=== PATIENT | male | born 1955 | race Caucasian/White ===

== ENCOUNTER 2017-02-04 15:25 | Inpatient (IN) | payer BC ==
[~2017-02-04] VITALS: Ht 190.5 cm; Wt 146.7 kg
[~2017-02-04 15:25] MED LIST: ACET325T9 PO; ALBU0.63 NEB; ALBU8.5H8 IH; AMLO10TA2 PO; AMLO10TA4 PO; AMOX1TAB61 PO; ASPI325T8 PO; ATOR20TA58 PO; Albuterol Sulfate NEB; BUPR150T15 PO; CARV12.5 PO; CARV25TA PO; CEFP200T PO; CLON1PAT3 TD; CRESTOR40 MG PO; DICL75TA PO; DIPH25CA58 PO; DOXY100C2 PO; FENO145T32 PO; FURO-68 PO; FURO40TA4 PO; FURO80TA72 PO; HYDR-2679 PO; HYDR-2868 PO; HYDR1TAB14 PO; HYDR25TA9 PO; INSU100I11 SQ; INSU100I17 SQ; IPRA3AMP NEB; IRBE300T PO; LEVO100T PO; LEVO500T59 PO; MAG DELAY64 MG PO; META-21 PO; META800T PO; METF500T4 PO; MOME17SP NS; MUPI22OI TP; NPH,100V SQ; OLOP5DRO EACHEYE; ONDA4TAB12 PO; POLY10DR3 EACHEYE; POTA10CA PO; POTA10TA31 PO; PRED-220 PO; PRED1TAB PO; PRED5TAB PO; PROP15DR2 OP; RANI300T PO; SULF1TAB24 PO; TOBR5DRO2 OU
--- NOTE | 2017-02-04 15:54 | PHYS DOC ---
Past History Past Medical History: Asthma, Bronchitis, CAD, CHF, COPD, Diabetes, DVT, GERD, High Cholesterol, Hypertension, Hypothyroid, Pneumonia, URI, Other Past Surgical History: Appendectomy, Tonsillectomy, Other Smoking: Cigarettes, Quit Greater Than 1 Year Alcohol Use: Sober Drug Use: None Adult General HPI HPI Patient is a 61 year old M who presents with increased difficult deep breathing. Patient has a history of CHF and COPD and is on baseline 2 L is a cannula and has had difficult deep breathing for the past couple days and at home his O2 saturations were in the mid 80s. In the emergency room the patient is placed on 6 L is a cannula with O2 saturations around 88%. Patient is having visible difficulty breathing and speaking in 2-3 word sentences. Patient states he takes Lasix at home for history of CHF however his legs are more swollen and so is his abdomen. Patient denies any chest pain. Patient denies any fevers. Patient denies any nausea/vomiting/diarrhea. Patient is no other complaints. Review of Systems Review of Systems GEN: Denies fevers, chills, sweats HEENT: Denies blurred vision, sore throat CV: Denies chest pain RESP: Shortness of breath GI: Denies n/v/d NEURO: Denies confusion, dizziness MSK: Denies weakness, joint pain/swelling All other systems were reviewed and found to be within normal limits, except as documented in this note. Allergies Allergies Allergies Coded Allergies Type Severity Reaction Last Updated Verified pioglitazone Allergy Severe swelling 03/27/15 Yes erythromycin base Allergy Intermediate rash and hives 03/27/15 Yes influenza virus vaccine, specific Allergy Intermediate SOB 03/27/15 No morphine Allergy Intermediate 12/16/15 Yes shellfish derived Allergy Intermediate SHRIMP-RASH/HIVES 03/27/15 Yes spinach Allergy Intermediate Hives 12/14/15 Yes torsemide Allergy Intermediate 12/16/15 Yes vancomycin Allergy Intermediate red iveth syndrome with IV/sob 03/27/15 Yes wool Allergy Intermediate Hives 12/14/15 Yes I S O L A T I O N *CONTACT* Allergy Unknown 03/27/15 No Physical Exam Physical Exam GEN.: Moderate distress. Alert and oriented. HEENT: Head is normocephalic, atraumatic NECK: Supple. LUNGS: Poor air movement in all lung abreu. HEART: RRR, S1, S2 present. Peripheral pulses intact ABDOMEN: Soft, nontender, stented with a positive fluid wave. Positive bowel sounds. EXTREMITIES: Without any cyanosis, +2 pitting edema to lower extremity bilaterally NEUROLOGIC: Normal speech, normal tone PSYCHIATRIC: Normal affect, normal mood. SKIN: No ulcerations Current Patient Data Vital Signs Laboratory Tests Test 02/04/17 15:49 02/04/17 16:35 White Blood Count 8.1 x10^3/uL Red Blood Count 4.12 x10^6/uL Hemoglobin 10.9 g/dL Hematocrit 33.5 % Mean Corpuscular Volume 81 fL Mean Corpuscular Hemoglobin 26 pg Mean Corpuscular Hemoglobin Concent 32 g/dL Red Cell Distribution Width 16.7 % Platelet Count 143 x10^3/uL Neutrophils (%) (Auto) 73 % Lymphocytes (%) (Auto) 12 % Monocytes (%) (Auto) 11 % Eosinophils (%) (Auto) 3 % Basophils (%) (Auto) 1 % Neutrophils # (Auto) 5.9 x10^3uL Lymphocytes # (Auto) 1.0 x10^3/uL Monocytes # (Auto) 0.9 x10^3/uL Eosinophils # (Auto) 0.2 x10^3/uL Basophils # (Auto) 0.1 x10^3/uL Sodium Level 139 mmol/L Potassium Level 3.9 mmol/L Chloride Level 100 mmol/L Carbon Dioxide Level 36 mmol/L Anion Gap 3 Blood Urea Nitrogen 13 mg/dL Creatinine 0.8 mg/dL Estimated GFR (Cockcroft-Gault) 97.6 BUN/Creatinine Ratio 16 Glucose Level 143 mg/dL Lactic Acid Level 1.3 mmol/L Calcium Level 8.7 mg/dL Total Bilirubin 0.4 mg/dL Aspartate Amino Transf (AST/SGOT) 24 U/L Alanine Aminotransferase (ALT/SGPT) 33 U/L Alkaline Phosphatase 75 U/L Troponin I Quantitative < 0.017 ng/mL BL-Cuc-L-Type Natriuretic Peptide 208 pg/mL Total Protein 6.8 g/dL Albumin 3.3 g/dL Albumin/Globulin Ratio 0.9 Lipase 58 U/L Blood Gas pH 7.37 Blood Gas PCO2 59 mmHg Blood Gas PO2 64 mmHg Blood Gas HCO3 35 mmol/L Arterial Bld O2 Saturation (Calc) 92 % FiO2 36 % Current Medications Medications (Trade) Dose Ordered Sig/Leeanna Route PRN Reason Start Time Stop Time Status Last Admin Dose Admin Albuterol/ Ipratropium (Duoneb) 3 ml STK-MED ONCE .ROUTE 02/04/17 15:57 02/04/17 15:58 DC Albuterol/ Ipratropium (Duoneb) 3 ml 1X ONCE NEB 02/04/17 16:00 02/04/17 16:11 DC 02/04/17 16:00 EKG EKG 1608: EKG shows sinus bradycardia rate of 59 no STEMI[] Radiology/Procedures Radiology/Procedures Chest x-ray shows developing left lower lobe pneumonia with pulmonary edema and congestion and bilateral small pleural effusions[] Course & Med Decision Making Course & Med Decision Making Pertinent Labs and Imaging studies reviewed. (See chart for details) ED course: Patient was seen and examined emergency room CBC, CMP, troponin, EKG, blood cultures, lactic acid, chest x-ray were ordered BiPAP was attempted to place on the patient however he felt claustrophobic and did not like her mass therefore we'll obtain his own from home, ABG was ordered After breathing treatment patient's work or breathing has gotten better 1640: Discussed CC/HP/PMH with Dr. Larsen and recommends admit to the ICU MDM: After reviewing the chart, CC/HPI/PMH, physical exam, [lab results], [ radiological results], I believe the patient has acute respiratory failure secondary to left lower lobe pneumonia with a COPD exacerbation and pulmonary congestion secondary to history of CHF. Attempted to place the patient on BiPAP however patient cannot tolerate hour mask and like to obtain his own from home. We'll admit the patient to ICU for further evaluation and management. Critical care time was 35 minutes exclusive of procedures.[] Dragon Disclaimer Dragon Disclaimer This electronic medical record was generated, in whole or in part, using a voice recognition dictation system. Departure Departure: Impression: Primary Impression: Left lower lobe pneumonia Additional Impressions: COPD exacerbation CHF (congestive heart failure) Disposition: ADMITTED INPATIENT Admitting Physician: Roseann Larsen Condition: GUARDED Referrals: ROSEANN LARSEN MD (PCP) Problem Qualifiers LILLI TREVIÑO DO Feb 04, 2017 15:54
[2017-02-04] MEDS ORDERED: IPRATRPIUM/ALBUTEROL 0.5/2.5MG 3 ML NEBU. ONE (15:57)
[2017-02-04] MEDS ORDERED: IPRATRPIUM/ALBUTEROL 0.5/2.5MG 3 ML NEBU. NEB ONE (16:00)
[2017-02-04 16:06] LABS: BASO # 0.1 x10^3/uL (0.0-0.2); BASO % 1 % (0-3); EOS # 0.2 x10^3/uL (0.0-0.7); EOS % 3 % (0-3); HEMATOCRIT 33.5 % (39.0-53.0); HEMOGLOBIN 10.9 g/dL (13.0-17.5); LYMPH % 12 % (24-48); MEAN CORPUSCULAR HEMOGLOBIN 26 pg (25-35); MEAN CORPUSCULAR HGB CONC 32 g/dL (31-37); MEAN CORPUSCULAR VOLUME 81 fL (79-100); MONO # 0.9 x10^3/uL (0.0-1.1); MONO % 11 % (0-9); NEUT # 5.9 x10^3uL (1.8-7.7); NEUT % 73 % (31-73); PLATELET COUNT 143 x10^3/uL (140-400); RED BLOOD COUNT 4.12 x10^6/uL (4.30-5.70); RED CELL DISTRIBUTION WIDTH 16.7 % (11.5-14.5); WHITE BLOOD COUNT 8.1 x10^3/uL (4.0-11.0)
[2017-02-04 16:22] LABS: ALBUMIN 3.3 g/dL (3.4-5.0); ALBUMIN/GLOBULIN RATIO 0.9 (1.0-1.7); CALCIUM 8.7 mg/dL (8.5-10.1); CREATININE 0.8 mg/dL (0.7-1.3); GFR 97.6; POTASSIUM 3.9 mmol/L (3.5-5.1); TOTAL BILIRUBIN 0.4 mg/dL (0.2-1.0); TOTAL PROTEIN 6.8 g/dL (6.4-8.2)
[2017-02-04 16:40] LABS: BGAS PH 7.37 (7.35-7.46)
[2017-02-04] MEDS ORDERED: PIPERACILLIN/TAZOBACTAM 3.375 GM in IV NORMAL SALINE 50ML 50 ML IV ONE (16:45)
--- NOTE | 2017-02-04 16:46 | RAD ---
Portable chest, 02/04/2017: History: Shortness of breath Comparison is made to a study from 04/05/2016. The patient is moderately rotated to the left. Moderate right parahilar and left basilar infiltrates have developed with obscuration of the left cardiac margin. The heart is at the upper limits of normal in size. Widening of the mediastinum is largely due to abundant mediastinal fat. A small amount of pleural fluid contributing to the left basilar opacity cannot be excluded. IMPRESSION: Moderate bilateral pulmonary infiltrates have developed suggesting pulmonary edema and/or pneumonia.
--- NOTE | 2017-02-04 16:47 | EKG ---
[address] [address] Test Date: 2017-02-04 Test Time: 16:02:58 Pat Name: [facility] Department: Room: Gender: M [employer]: [id number] : [id number] Requested By: LILLI TREVIÑO Order Number: [id number] Reading MD: Zana Hanson MD Measurements Intervals [place] Rate: 59 P: 10 CT: 210 QRS: -87 QRSD: 148 T: 82 QT: 486 QTc: 486 Interpretive Statements SINUS RHYTHM LAFB IVCD Electronically Signed On 02-05-2017 15:14:35 RELAY ASSOCIATE by Zana Hanson MD
[2017-02-04] MEDS ORDERED: PIPERACILLIN/TAZOBACTAM 3.375 GM VIAL IV ONE (16:54)
[2017-02-04] MEDS ORDERED: IV NORMAL SALINE 50ML 50 ML ONE (16:54)
[2017-02-04] MEDS ORDERED: ONDANSETRON PF 4 MG/2 ML VIAL. IV PRN (17:00)
[2017-02-04] MEDS ORDERED: ACETAMINOPHEN 325 MG TABLET PO PRN ×2 (17:00→18:15)
[2017-02-04 18:00] VITALS: BP 161/75
[2017-02-04] MEDS ORDERED: METAXALONE 800 MG TABLET PO PRN (18:15)
[2017-02-04] MEDS ORDERED: ONDANSETRON ODT 4 MG TAB.RAPDIS PO PRN (18:15)
[2017-02-04] MEDS ORDERED: ALBUTEROL SULFATE 8GM INHALER. IH PRN (18:15)
[2017-02-04] MEDS ORDERED: HYDROcodone/APAP 7.5/325MG 1 TAB TABLET PO PRN (18:15)
[2017-02-04] MEDS ORDERED: POLYVINYL ALCOHOL 1.4% OPHTH SOLUTION 15ML BOTTLE. OU PRN (19:00)
[2017-02-04] MEDS ORDERED: SODI104S NS (19:30)
[2017-02-04 19:33] VITALS: BP 163/66
[2017-02-04] MEDS ORDERED: IPRATRPIUM/ALBUTEROL 0.5/2.5MG 3 ML NEBU. NEB SCH (20:00)
[2017-02-04] MEDS ORDERED: ALBUTEROL SULFATE 2.5 MG/3 ML NEBU. NEB PRN (20:30)
[2017-02-04 20:48] VITALS: BP 174/66
[2017-02-04] MEDS ORDERED: NPH HUMAN INSULIN ISOPHANE SQ SCH (21:00)
[2017-02-04] MEDS: IPRATRPIUM/ALBUTEROL 0.5/2.5MG 3 ML NEBU. NEB SCH (21:11)
[2017-02-04] MEDS: TOBRAMYCIN 0.3% OPHTH SOLUTION 5ML BOTTLE. OU SCH (21:39)
[2017-02-04] MEDS: DEXAMETHASONE 0.1% OPHTH SOLUTION 5ML BOTTLE. OU SCH (21:39)
[2017-02-04] MEDS: POLYMYXIN/TRIMETHOPRIM OPHTH SOLUTION 10ML BOTTLE. OU SCH (21:39)
[2017-02-04] MEDS: hydrALAZINE 25 MG TABLET PO SCH (21:40)
[2017-02-04] MEDS: FAMOTIDINE 20 MG TABLET PO SCH (21:40)
[2017-02-04] MEDS: ATORVASTATIN CALCIUM 20 MG TABLET PO SCH (21:40)
[2017-02-04] MEDS: CARVEDILOL 12.5 MG TABLET PO SCH (21:40)
[2017-02-04] MEDS: ENOXAPARIN 40 MG/0.4 ML DISP.SYRIN. SQ SCH (21:41)
[2017-02-04 23:15] VITALS: BP 177/59
[2017-02-05] VITALS (11 sets, daily range): BP systolic 127–181; BP diastolic 54–78
[2017-02-05] MEDS: AZTREONAM 1 GM in IV NORMAL SALINE 50ML 50 ML IV SCH ×4 (00:13→18:14)
[2017-02-05] MEDS: IPRATRPIUM/ALBUTEROL 0.5/2.5MG 3 ML NEBU. NEB SCH ×3 (05:53→16:54)
[2017-02-05] MEDS: LEVOTHYROXINE 100 MCG TABLET PO SCH (06:08)
[2017-02-05 06:18] LABS: BASO # 0.1 x10^3/uL (0.0-0.2); BASO % 1 % (0-3); EOS # 0.2 x10^3/uL (0.0-0.7); EOS % 2 % (0-3); HEMOGLOBIN 10.3 g/dL (13.0-17.5); LYMPH # 1.1 x10^3/uL (1.0-4.8); LYMPH % 13 % (24-48); MEAN CORPUSCULAR HEMOGLOBIN 26 pg (25-35); MEAN CORPUSCULAR HGB CONC 32 g/dL (31-37); MEAN CORPUSCULAR VOLUME 81 fL (79-100); MONO # 0.9 x10^3/uL (0.0-1.1); MONO % 10 % (0-9); NEUT # 6.4 x10^3uL (1.8-7.7); NEUT % 75 % (31-73); PLATELET COUNT 136 x10^3/uL (140-400); RED BLOOD COUNT 3.93 x10^6/uL (4.30-5.70); RED CELL DISTRIBUTION WIDTH 16.6 % (11.5-14.5); WHITE BLOOD COUNT 8.5 x10^3/uL (4.0-11.0)
[2017-02-05 06:21] LABS: CALCIUM 8.7 mg/dL (8.5-10.1); CREATININE 0.8 mg/dL (0.7-1.3); GFR 97.6; POTASSIUM 3.9 mmol/L (3.5-5.1)
[2017-02-05] MEDS: NPH HUMAN INSULIN ISOPHANE SQ SCH (08:00)
[2017-02-05] MEDS: POTASSIUM CHLORIDE 10 MEQ TABLET.ER. PO SCH (08:00)
[2017-02-05] MEDS: FLUTICASONE 50MCG/NASAL SPRAY 16GM BOTTLE. NS SCH (08:16)
[2017-02-05] MEDS: POLYMYXIN/TRIMETHOPRIM OPHTH SOLUTION 10ML BOTTLE. OU SCH ×3 (08:17→21:23)
[2017-02-05] MEDS: MAGNESIUM CHLORIDE ER 64 MG TABLET.ER PO SCH (08:17)
[2017-02-05] MEDS: TOBRAMYCIN 0.3% OPHTH SOLUTION 5ML BOTTLE. OU SCH ×2 (08:17→12:58)
[2017-02-05] MEDS: DEXAMETHASONE 0.1% OPHTH SOLUTION 5ML BOTTLE. OU SCH ×5 (08:17→21:22)
[2017-02-05] MEDS: ENOXAPARIN 40 MG/0.4 ML DISP.SYRIN. SQ SCH ×2 (08:18→21:24)
[2017-02-05] MEDS: DOXYCYCLINE HYCLATE 100 MG TABLET PO SCH ×2 (08:18→21:24)
[2017-02-05] MEDS: amLODIPine BESYLATE 10 MG TABLET PO SCH (08:18)
[2017-02-05] MEDS: ASPIRIN 325 MG TABLET PO SCH (08:19)
[2017-02-05] MEDS: metFORMIN 500 MG TABLET PO SCH ×2 (08:19→17:00)
[2017-02-05] MEDS: FENOFIBRATE NANOCRYSTALLIZED 145 MG TABLET PO SCH (08:19)
[2017-02-05] MEDS: LOSARTAN 50 MG TABLET. PO SCH (08:19)
[2017-02-05] MEDS: hydrALAZINE 25 MG TABLET PO SCH ×4 (08:19→21:25)
[2017-02-05] MEDS: INSULIN ASPART 300 UNITS/3 ML INSULN.PEN SQ SCH ×3 (08:26→16:30)
[2017-02-05] MEDS ORDERED: FUROSEMIDE 40 MG TABLET PO SCH (09:00)
[2017-02-05] MEDS ORDERED: FUROSEMIDE 40 MG/4 ML VIAL IVP SCH (09:00)
[2017-02-05] MEDS ORDERED: hydroCHLOROthiazide 25 MG TABLET PO SCH (09:00)
[2017-02-05] MEDS ORDERED: buPROPion XL 150 MG TAB.ER.24H PO SCH (09:00)
[2017-02-05] MEDS: CARVEDILOL 12.5 MG TABLET PO SCH ×3 (09:31→21:25)
--- NOTE | 2017-02-05 10:15 | PDOC2 ---
ARMIDA LEMON DOG WARDEN 02/05/17 1015: CONSULT Date of Admission DATE: 02/05/17 TIME: 10:07 Problem List Problems Medical Problems: (1) CHF (congestive heart failure) Status: Acute (2) COPD exacerbation Status: Acute (3) Left lower lobe pneumonia Status: Acute History of Present Illness PHYSICIAN REQUESTING CONSULTATION: Dr. Jacobo Larsen. REASON FOR CONSULTATION: Shortness of breath, CHF exacerbation. HISTORY OF PRESENT ILLNESS: The patient is a very pleasant 61-year-old gentleman, Who presented to the emergency room with chief complaint of dyspnea. The patient does have a history of coronary artery disease s/p percutaneous revascularization, essential hypertension,hyperlipidemia, diabetes mellitus type 2, COPD, and heart failure with preserved ejection fraction. The patient was admitted yesterday after presenting with symptoms of progressively worsening shortness of breath. He reports that his symptoms have been getting progressively worse over the past several days. He denies any associated chest pains. He has been having cough with yellow sputum , low-grade fever, and feeling overall unwell. He walked down stairs in his home and his O2 saturation monitor showed that his oxygen level had dropped into the low 80s so he came into the emergency room. He has occasional palpitations which are his normal. They last for a few seconds and feel like a fluttering sensation that have not increased the last few days. On admission to the emergency room he was diagnosed with pneumonia and started on antibiotics. His chest x-ray shows small pleural effusion with minimally elevated BNP. His Lasix has been changed to IV and we are getting his blood pressure medication restarted. His blood pressure this morning is been quite elevated at 200/100 but he reports that when he is on all of his medications it is under well controlled. This morning he is not feeling better yet. He continues to feel achy and short of breath. REVIEW OF SYSTEMS: A 14-point organ system, review of system is negative other than as described above. FAMILY HISTORY: The patient reports a family history of lung disease and cancer, but denies any significant heart history in his family. SOCIAL HISTORY: The patient is a former smoker. He reports that he quit smoking earlier this year. He does drink alcohol occasionally. He denies any illicit drug use. ALLERGIES: Include erythromycin, influenza virus vaccine, morphine, pioglitazone, shellfish, spinach, torsemide, vancomycin and wool. CURRENT MEDICATIONS: A list of his current medications is listed in the electronic medical record. These were reviewed. PHYSICAL EXAMINATION: HEENT: Head is normocephalic. Pupils are equal, round and reactive to light and accommodation. Sclerae are anicteric. Conjunctivae are normal. Nares are clear. NECK: Supple, without any adenopathy or thyromegaly. There is no JVD, no carotid bruits. LUNGS: Demonstrate decreased air movements bilaterally. + wheezes or crackles. HEART: Regular rate and rhythm, normal S1 and S2. No murmurs, rubs, or gallops are appreciated. ABDOMEN: Soft, nontender to palpation. Normal bowel sounds. EXTREMITIES: With trace pitting edema bilaterally. There does appear to be normal peripheral pulses. NEUROLOGIC: Grossly intact. No focal deficits. Cardiac testing ECHOCARDIOGRAM IMPRESSION (11/29/2016): Technically difficult study. The left ventricular systolic function is normal. The Ejection Fraction is 55-60%. There is normal LV segmental wall motion. The left atrium is moderately dilated. Doppler and Color Flow revealed trace mitral regurgitation. There is no evidence of significant pericardial effusion. NUCLEAR STRESS TEST IMPRESSION (11/30/2016): 1. No evidence of EKG changes with stress testing. 2. Normal perfusion at stress. 3. Low risk study. 4. EF > 60%. CAROTID ARTERY DUPLEX STUDY IMPRESSION ( 09/14/16):. Doppler analysis revealed 50-69% stenosis in RT ICA. Doppler analysis revealed < 50% stenosis in LT ICA.. Normal antegrade flow was noted in both vertebral arteries. VENOUS LOWER EXTREMITY DUPLEX (04/02/2016): No Doppler evidence of lower extremity venous thrombosis, with limited evaluation of the calf veins due to soft tissue edema. ECHOCARDIOGRAM IMPRESSION (12/15/2015): Technically difficult study due to patient body habitus. There is mild concentric left ventricular hypertrophy. Left ventricle systolic function is normal. The Ejection Fraction is 55-60%. No significant valvular disease noted. There is no evidence of significant pericardial effusion. CT ANGIOGRAM CHEST (12/14/2015): 1. No pulmonary emboli are identified. 2. There are trace dependent pleural effusions bilaterally, mild ground-glass density of the lung parenchyma which could be due to edema, constellation of findings potentially which could be seen with left ventricular failure in the appropriate clinical setting. There is mild pleural thickening along the right lung base slightly greater than previous exam, also adjacent minimal fluid. 3. There is coronary calcification. 4. There is similar mediastinal lymphadenopathy. CT ANGIOGRAM CHEST (12/14/2015): 1. No pulmonary emboli are identified. 2. There are trace dependent pleural effusions bilaterally, mild ground-glass density of the lung parenchyma which could be due to edema, constellation of findings potentially which could be seen with left ventricular failure in the appropriate clinical setting. There is mild pleural thickening along the right lung base slightly greater than previous exam, also adjacent minimal fluid. 3. There is coronary calcification. 4. There is similar mediastinal lymphadenopathy. CT ANGIOGRAM CHEST ( 02/15/2015); 1. Stable CT appearance of the mediastinal lymphadenopathy. 2. Small right pleural effusion which has decreased in size slightly since the previous examination. No acute abnormality is seen. REGADENOSON STRESS TEST IMPRESSION (12/16/2014): This study is abnormal due to elevated lung uptake of radioisotope, which is an adverse prognostic indicator. There is no evidence of significant myocardial ischemia. Left ventricular systolic function is normal. There are no high risk prognostic indicators present. The ECG portion of the study is negative for ischemia. Comparison is made with a prior [facility] study completed 01/27/2014. Ejection fraction was 59%. The previous study also had elevated uptake of radioisotope. Otherwise, there are no significant changes. CARDIAC CATHETERIZATION IMPRESSION (12/13/2011): Successful CSI bur 2.0 arthrectomy of the right SFA lesion. Status post percutaneous angioplasty of the right SFA lesion with a 5 into 60 cm Wolfe SV balloon. Status post left common iliac stenting with a 9 into 25 mm Omnilink stent. Status post dilation with a 9 into 20 mm Wolfe balloon. Status post right common iliac stenting with an 8 into 59 Omnilink stent. Status post dilatation witha 8 in 30 mm Wolfe balloon. VASCULAR: 12/05/2011 right superficial femoral artery atherectomy and bilateral common iliac stenting in November 2011 IMPRESSION AND PLAN: 1. Dyspnea on exertion, likely multifactorial. 2. Acute congestive heart failure, likely diastolic. plan to resume home medications get blood pressure under control. He just had a recent echocardiogram that showed normal LV function. Will plan to change his Lasix to IV and monitor lab and x-ray 3. Coronary artery disease, status post multivessel percutaneous coronary - coronary arteriosclerosis in [place] artery He had drug-eluting stent 2.5 x38 obtuse marginal in 2.5 x12 into the diagonal in [address] Merida at . He Had a negative stress myocardial perfusion scan in November 2016 at [facility] which was negative for ischemia. Asymptomatic continue current therapy 4. Essential hypertension. -elevated at this time plan to resume home medications and monitor. 5. Hyperlipidemia. -LDL goal of less than 70 check fasting lipids continue statin therapy 6. Pneumonia/Chronic obstructive pulmonary disease exacerbation. -treatment per primary care provider 7. Diabetes mellitus type 2. -treatment per primary care provider Past Medical History essential hypertension The patients blood pressure is adequately controlled on the current therapy. We will continue the current medications. The patient does not have significant orthostatic symptoms. he is off the hydrochlorothiazide which seems reasonable. HE is able to take the hydralazine 4 times a day heart failure with normal ejection fraction Ejection fraction was normal in November 2015. Previously he was on a higher dose of Lasix but he appears to be doing well on a smaller dose of Lasix at 40 mg . Will continue the current dosage. He has mild edema. Amlodipine may also be contributing. mixed hyperlipidemia His lipid profile in March showed triglycerides of 369 with a total cholesterol 165 LDL 63 and HDL 29. he is on rosuvastatin 40 and fenofibrate. I have counseled him about diet. He cannot exercise. His lipids on 11/28/2016 showed total cholesterol of 111 triglycerides 203 LDL 39 and HDL 31 obesity he has lost 5 lb. The have been working towards cutting back his carbohydrates although he cheats occasionally. He eats more when his sugars dropped. I have counseled him to cut back his insulin if necessary. I have encouraged him to continue to work on the carbohydrates. HE loves vegetables which has helped chronic obstructive lung disease he is on chronic ambulatory oxygen since January. Prior to that he had multiple steroid trials. He sees Dr Escobar peripheral vascular disease he had a right superficial femoral artery atherectomy and bilateral common iliac stenting in November 2011 tobacco dependence in remission he quit smoking late 2014 pain in lower limb (Bilateral) His lower extremity venous duplex was negative for DVT carotid bruit his bilateral carotid bruits. His carotid ultrasound showed [id number] disease bilaterally Type 2 diabetes mellitus without complication he is on insulin. I have asked him to cut back dosage if he has hypoglycemia obstructive sleep apnea syndrome he is on trilogy. I have advised him to use the trilogy whenever he sleeps because he sleeps in short bursts throughout the Current Medications Current Medications Albuterol/ Ipratropium (Duoneb) 3 ml STK-MED ONCE .ROUTE ; Start 02/04/17 at 15 :57; Stop 02/04/17 at 15:58; Status DC Albuterol/ Ipratropium (Duoneb) 3 ml 1X ONCE NEB Last administered on t 16:00; Start 02/04/17 at 16:00; Stop 02/04/17 at 16:11; Status DC Piperacillin Sod/ Tazobactam Sod 3.375 gm/Sodium Chloride 50 ml @ 100 mls/hr 1X ONCE IV Last administered on 02/04/17t 17:14; Start 02/04/17 at 16:45; Stop 02/04/17 at 17:14; Status DC Levofloxacin/ Dextrose 150 ml @ 150 mls/hr 1X ONCE IV ; Start 02/04/17 at 16: 45; Stop 02/04/17 at 17:44; Status DC Ondansetron HCl (Zofran) 4 mg PRN Q4HRS PRN IV NAUSEA/VOMITING; Start at 17:00; Stop 02/05/17 at 16:59 Acetaminophen (Tylenol) 650 mg PRN Q4HRS PRN PO FEVER; Start 02/04/17 at 17:00 ; Stop 02/04/17 at 20:24; Status DC Albuterol/ Ipratropium (Duoneb) 3 ml RTQID NEB Last administered on 02/05/17t 05:53; Start 02/04/17 at 20:00; Stop 02/05/17 at 19:59 Fentanyl Citrate (Fentanyl 2ml Vial) 75 mcg PRN Q4HRS PRN IV pain ; Start at 17:00 Sodium Chloride 50 ml @ As Directed STK-MED ONCE .ROUTE ; Start 02/04/17 at 16: 54; Stop 02/04/17 at 16:55; Status DC Piperacillin Sod/ Tazobactam Sod (Zosyn) 3.375 gm STK-MED ONCE IV ; Start 02/04 at 16:54; Stop 02/04/17 at 16:55; Status DC Acetaminophen (Tylenol) 325 mg PRN Q6HRS PRN PO PAIN; Start 02/04/17 at 18:15 Albuterol Sulfate (Ventolin Hfa) 2 puff PRN QID PRN IH SOA; Start 02/04/17 at 18:15; Stop 02/04/17 at 20:24; Status DC Amlodipine Besylate (Norvasc) 10 mg DAILY PO Last administered on 02/05/17 08 :18; Start 02/05/17 at 09:00 Aspirin (Venita Aspirin) 325 mg DAILY PO Last administered on 02/05/17 08:19; Start 02/05/17 at 09:00 Bupropion HCl (Wellbutrin Xl) 150 mg DAILY PO ; Start 02/05/17 at 09:00; Stop 02/05/17 at 09:00; Status DC Clonidine HCl (Catapres Tts-3) 1 patch WEEKLY TD ; Start 02/11/17 at 09:00; Stop 02/11/17 at 09:00; Status DC Fenofibrate (Tricor) 145 mg DAILY PO Last administered on 02/05/17 08:19; Start 02/05/17 at 09:00 Furosemide (Lasix) 80 mg DAILY PO ; Start 02/05/17 at 09:00; Stop 02/05/17 at 09:00; Status DC Hydralazine HCl (Apresoline) 25 mg [id number] PO Last administered on 02/05/17 08:19; Start 02/04/17 at 21:00 Hydrochlorothiazide (Hydrodiuril) 25 mg DAILY PO ; Start 02/05/17 at 09:00; Stop 02/05/17 at 09:22; Status DC Acetaminophen/ Hydrocodone Bitart (Lortab 7.5/325) 1 tab PRN Q6HRS PRN PO PAIN Last administered on 02/04/17 23:30; Start 02/04/17 at 18:15 Albuterol/ Ipratropium (Duoneb) 3 ml RTQID NEB ; Start 02/04/17 at 20:00; Stop 02/04/17 at 23:36; Status DC Levothyroxine Sodium (Synthroid) 100 mcg DAILY07 PO Last administered on 06:08; Start 02/05/17 at 07:00 Metaxalone (Skelaxin) 800 mg PRN TID PRN PO PAIN; Start 02/04/17 at 18:15 Metformin HCl (Glucophage) 500 mg BIDWMEALS PO Last administered on 02/05/17 08:19; Start 02/05/17 at 08:00 Ondansetron HCl (Zofran Odt) 4 mg PRN Q8HRS PRN PO NAUSEA; Start 02/04/17 at 18:15 Polymyxin/ Trimethoprim Sulfate (Polytrim) 1 drop TID OU Last administered on 02/05/17 08:17; Start 02/04/17 at 21:00 Carvedilol (Coreg) 25 mg TID PO Last administered on 02/05/17 09:31; Start 02/04/17 at 21:00 Insulin Aspart (NovoLOG) 38 units TIDBFRMEAL SQ Last administered on 08:26; Start 02/05/17 at 07:30 Losartan Potassium (Cozaar) 100 mg DAILY PO Last administered on 02/05/17 08: 19; Start 02/05/17 at 09:00 Magnesium Chloride (Mag Delay) 64 mg DAILY PO Last administered on 02/05/17 08:17; Start 02/05/17 at 09:00 Fluticasone Propionate (Flonase) 2 spray DAILY NS Last administered on 08:16; Start 02/05/17 at 09:00 Non-Formulary Medication 28 unit DAILYWBKFT SQ Last administered on 02/05/17 08:00; Start 02/05/17 at 08:00; Status UNV Non-Formulary Medication 88 unit HS SQ ; Start 02/04/17 at 21:00; Stop at 21:00; Status DC Potassium Chloride (Klor-Con) 10 meq DAILYWBKFT PO Last administered on 08:00; Start 02/05/17 at 08:00 Artificial Tears (Artificial Tears) 1 drop PRN Q4HRS PRN OU DRY EYE Last administered on 02/05/17 08:17; Start 02/04/17 at 19:00 Famotidine (Pepcid) 20 mg QHS PO Last administered on 02/04/17 21:40; Start 02/04/17 at 21:00 Atorvastatin Calcium (Lipitor) 80 mg QHS PO Last administered on 02/04/17 21: 40; Start 02/04/17 at 21:00 Tobramycin Sulfate (Tobrex Ophth Soln) 1 drop QID OU Last administered on 02/05 08:17; Start 02/04/17 at 21:00 Enoxaparin Sodium (Lovenox) 40 mg Q12H SQ Last administered on 02/05/17 08:18 ; Start 02/04/17 at 20:00 Furosemide (Lasix) 40 mg DAILY IVP Last administered on 02/05/17 08:18; Start 02/05/17 at 09:00 Aztreonam 1 gm/ Sodium Chloride 50 ml @ 100 mls/hr Q6HRS IV Last administered on 02/05/17 05:35; Start 02/05/17 at 00:00 Doxycycline Hyclate (Vibra-Tab) 100 mg BID PO Last administered on 02/05/17 08:18; Start 02/05/17 at 09:00 Levofloxacin/ Dextrose 150 ml @ 150 mls/hr 1X ONCE IV Last administered on 20:29; Start 02/04/17 at 18:30; Stop 02/04/17 at 19:29; Status DC Dexamethasone (Maxidex) 1 drop QID OU Last administered on 02/05/17 08:17; Start 02/04/17 at 21:00 Albuterol Sulfate (Ventolin) 2.5 mg PRN Q6HRS PRN NEB SHORTNESS OF BREATH; Start 02/04/17 at 20:30; Stop 02/04/17 at 20:30; Status DC Albuterol Sulfate (Ventolin) 2.5 mg PRN Q6HRS PRN NEB SHORTNESS OF BREATH; Start 02/04/17 at 20:30 Active Scripts Active Potassium Chloride 10 Meq Capsule.er 1 Cap PO DAILY take two capsules daily for 7 days, then decrease to 1 capsule daily Furosemide 40 Mg Tablet 80 Mg PO DAILY 80mg for 1 week, then decrease to 40mg daily Mag Delay (Magnesium Chloride) 64 Mg Tablet.er 64 Mg PO DAILY 1 tablet daily Duoneb 0.5-3(2.5) Mg/3 Ml (Albuterol/Ipratropium) 3 Ml Ampul.neb 3 Ml NEB RTQID Synthroid (Levothyroxine Sodium) 100 Mcg Tablet 100 Mcg PO DAILY07 for low thyroid last dose: 11/04 @ 6:02 AM next dose: 11/05 AM Reported Maria Antonia (Sodium Chloride) 104 Ml [place] 104 Ml NS Q1HR PRN Amlodipine Besylate 10 Mg Tablet 1 Tab PO DAILY LAST DOSE GIVEN: DATE: TODAY TIME: AM NEXT DOSE DUE: DATE: TOMORROW TIME: AM Systane Liquid Gel Eye Drops (Propylene Glycol/Peg 400) 15 Ml Drp.lq.gel 15 Ml OP Q4HRS LAST DOSE GIVEN: DATE: TODAY TIME: AFTERNOON NEXT DOSE DUE: DATE: TODAY TIME: EVENING Nasonex (Mometasone Furoate) 17 Gm [place].pump 2 Spr NS PRN BID PRN LAST DOSE GIVEN: DATE: TODAY TIME: AM NEXT DOSE DUE: DATE: TODAY TIME: PM Ondansetron Odt (Ondansetron) 4 Mg Tab.rapdis 1 Tab PO Q8HRS PRN LAST DOSE GIVEN: DATE: TIME: NEXT DOSE DUE: DATE: TODAY TIME: IF AND WHEN NEEDED Polymyxin B-Tmp Eye Drops (Polymyxin B Sulf/Trimethoprim) 10 Ml Drops 1 Drop EACHEYE TID LAST DOSE GIVEN: DATE: TODAY TIME: AFTERNOON NEXT DOSE DUE: DATE: TODAY TIME: AT BEDTIME Metaxalone 800 Mg Tablet 800 Mg PO TID PRN LAST DOSE GIVEN: DATE: TIME: NEXT DOSE DUE: DATE: TODAY TIME: IF AND WHEN NEEDED Humulin N (Nph, Human Insulin Isophane) 100 Unit/1 Ml Vial 28 Unit SQ DAILYWBKFT LAST DOSE GIVEN: DATE: TODAY TIME: WITH BREAKFAST NEXT DOSE DUE: DATE: TOMORROW TIME: WITH BREAKFAST Tylenol (Acetaminophen) 325 Mg Tablet 1 Tab PO Q6HRS PRN LAST DOSE GIVEN: DATE: TIME: NEXT DOSE DUE: DATE: TODAY TIME: IF AND WHEN NEEDED Coreg (Carvedilol) 25 Mg Tablet 1 Tab PO TID LAST DOSE GIVEN: DATE: TODAY TIME: AFTERNOON NEXT DOSE DUE: DATE: TODAY TIME: PM Lortab 7.5-325 mg Tablet (Hydrocodone/Acetaminophen) 1 Each Tablet 1-2 Tab PO Q6HRS PRN LAST DOSE GIVEN: DATE: TODAY TIME: 12 NOON NEXT DOSE DUE: DATE: TODAY TIME: AFTER 6 PM IF NEEDED Humalog (Insulin Lispro) 100 Unit/1 Ml Insuln.pen 32-36 Unit SQ TIDAC LAST DOSE GIVEN: DATE: TODAY TIME: WITH DINNER NEXT DOSE DUE: DATE: TOMORROW TIME: WITH BREAKFAST Tricor (Fenofibrate Nanocrystallized) 145 Mg Tablet 1 Tab PO DAILY LAST DOSE GIVEN: DATE: TIME: AM NEXT DOSE DUE: DATE: ORR TIME: AM Hydralazine Hcl 25 Mg Tablet 25 Mg PO [id number] LAST DOSE GIVEN: DATE: TODAY TIME: 5 PM NEXT DOSE DUE: DATE: TODAY TIME: AT BEDTIME Metformin Hcl 500 Mg Tablet 1,000 Mg PO BIDWMEALS LAST DOSE GIVEN: DATE: TIME: WITH DINNER NEXT DOSE DUE: DATE: TOMORROW TIME: WITH BREAKFAST Benadryl (Diphenhydramine Hcl) 25 Mg Capsule 25-50 Mg PO PRN Q6HRS PRN LAST DOSE GIVEN: DATE: TIME: NEXT DOSE DUE: DATE: TIME: AFTER IF NEEDED Crestor (Rosuvastatin Calcium) 40 Mg Tablet 40 Mg PO DAILY LAST DOSE GIVEN: DATE: TIME: AM NEXT DOSE DUE: DATE: ORR TIME: AM Aspirin 325 Mg Tablet 325 Mg PO DAILY LAST DOSE GIVEN: DATE: TIME: AM NEXT DOSE DUE: DATE: TOMORROW TIME: AM Ranitidine Hcl 300 Mg Tablet 300 Mg PO DAILY LAST DOSE GIVEN: DATE: TIME: AM NEXT DOSE DUE: DATE: ORR TIME: AM Avapro (Irbesartan) 300 Mg Tablet 300 Mg PO DAILY LAST DOSE GIVEN: DATE: TIME: AM NEXT DOSE DUE: DATE: TOMORROW TIME: AM Allergies: Coded Allergies: pioglitazone (Verified Allergy, Severe, swelling , 03/27/15) erythromycin base (Verified Allergy, Intermediate, rash and hives, 03/27/15) influenza virus vaccine, specific (Unverified Allergy, Intermediate, SOB, 03/27/15) SWELLED UP. morphine (Verified Allergy, Intermediate, 12/16/15) shellfish derived (Verified Allergy, Intermediate, SHRIMP-RASH/HIVES, ) spinach (Verified Allergy, Intermediate, Hives, 12/14/15) AND RASH AND VOMITING torsemide (Verified Allergy, Intermediate, 12/16/15) vancomycin (Verified Allergy, Intermediate, red iveth syndrome with IV/sob , 03/27/15) wool (Verified Allergy, Intermediate, Hives, 12/14/15) AND RASH AND N/V I S O L A T I O N *CONTACT* (Unverified Allergy, Unknown, 03/27/15) VITALS Vital Signs Date Time Temp Pulse Resp B/P (MAP) Pulse Ox O2 Delivery O2 Flow Rate FiO2 02/05/17 09:31 75 02/05/17 08:30 26 181/74 (109) 96 Nasal Cannula 2.0 02/05/17 06:46 97.0 Labs Laboratory Tests Test 02/04/17 15:49 02/04/17 16:35 02/04/17 18:30 02/04/17 20:33 White Blood Count 8.1 x10^3/uL (4.0-11.0) Red Blood Count 4.12 x10^6/uL (4.30-5.70) Hemoglobin 10.9 g/dL (13.0-17.5) Hematocrit 33.5 % (39.0-53.0) Mean Corpuscular Volume 81 fL (79-100) Mean Corpuscular Hemoglobin 26 pg (25-35) Mean Corpuscular Hemoglobin Concent 32 g/dL (31-37) Red Cell Distribution Width 16.7 % (11.5-14.5) Platelet Count 143 x10^3/uL (140-400) Neutrophils (%) (Auto) 73 % (31-73) Lymphocytes (%) (Auto) 12 % (24-48) Monocytes (%) (Auto) 11 % (0-9) Eosinophils (%) (Auto) 3 % (0-3) Basophils (%) (Auto) 1 % (0-3) Neutrophils # (Auto) 5.9 x10^3uL (1.8-7.7) Lymphocytes # (Auto) 1.0 x10^3/uL (1.0-4.8) Monocytes # (Auto) 0.9 x10^3/uL (0.0-1.1) Eosinophils # (Auto) 0.2 x10^3/uL (0.0-0.7) Basophils # (Auto) 0.1 x10^3/uL (0.0-0.2) Sodium Level 139 mmol/L (136-145) Potassium Level 3.9 mmol/L (3.5-5.1) Chloride Level 100 mmol/L (98-107) Carbon Dioxide Level 36 mmol/L (21-32) Anion Gap 3 (6-14) Blood Urea Nitrogen 13 mg/dL (8-26) Creatinine 0.8 mg/dL (0.7-1.3) Estimated GFR (Cockcroft-Gault) 97.6 BUN/Creatinine Ratio 16 (6-20) Glucose Level 143 mg/dL (70-99) Lactic Acid Level 1.3 mmol/L (0.4-2.0) 1.8 mmol/L (0.4-2.0) Calcium Level 8.7 mg/dL (8.5-10.1) Total Bilirubin 0.4 mg/dL (0.2-1.0) Aspartate Amino Transf (AST/SGOT) 24 U/L (15-37) Alanine Aminotransferase (ALT/SGPT) 33 U/L (16-63) Alkaline Phosphatase 75 U/L (46-116) Troponin I Quantitative < 0.017 ng/mL (0-0.055) AJ-Xeb-U-Type Natriuretic Peptide 208 pg/mL (0-124) Total Protein 6.8 g/dL (6.4-8.2) Albumin 3.3 g/dL (3.4-5.0) Albumin/Globulin Ratio 0.9 (1.0-1.7) Lipase 58 U/L (73-393) Blood Gas pH 7.37 (7.35-7.46) Blood Gas PCO2 59 mmHg (35-46) Blood Gas PO2 64 mmHg (80-100) Blood Gas HCO3 35 mmol/L (21-28) Arterial Bld O2 Saturation (Calc) 92 % (92-99) FiO2 36 % Glucose (Fingerstick) 183 mg/dL (70-99) Test 02/04/17 22:10 02/05/17 05:44 02/05/17 07:42 Lactic Acid Level 0.9 mmol/L (0.4-2.0) White Blood Count 8.5 x10^3/uL (4.0-11.0) Red Blood Count 3.93 x10^6/uL (4.30-5.70) Hemoglobin 10.3 g/dL (13.0-17.5) Hematocrit 32.0 % (39.0-53.0) Mean Corpuscular Volume 81 fL (79-100) Mean Corpuscular Hemoglobin 26 pg (25-35) Mean Corpuscular Hemoglobin Concent 32 g/dL (31-37) Red Cell Distribution Width 16.6 % (11.5-14.5) Platelet Count 136 x10^3/uL (140-400) Neutrophils (%) (Auto) 75 % (31-73) Lymphocytes (%) (Auto) 13 % (24-48) Monocytes (%) (Auto) 10 % (0-9) Eosinophils (%) (Auto) 2 % (0-3) Basophils (%) (Auto) 1 % (0-3) Neutrophils # (Auto) 6.4 x10^3uL (1.8-7.7) Lymphocytes # (Auto) 1.1 x10^3/uL (1.0-4.8) Monocytes # (Auto) 0.9 x10^3/uL (0.0-1.1) Eosinophils # (Auto) 0.2 x10^3/uL (0.0-0.7) Basophils # (Auto) 0.1 x10^3/uL (0.0-0.2) Sodium Level 138 mmol/L (136-145) Potassium Level 3.9 mmol/L (3.5-5.1) Chloride Level 99 mmol/L (98-107) Carbon Dioxide Level 35 mmol/L (21-32) Anion Gap 4 (6-14) Blood Urea Nitrogen 14 mg/dL (8-26) Creatinine 0.8 mg/dL (0.7-1.3) Estimated GFR (Cockcroft-Gault) 97.6 Glucose Level 135 mg/dL (70-99) Calcium Level 8.7 mg/dL (8.5-10.1) Glucose (Fingerstick) 131 mg/dL (70-99) CAMPBELL MONTES DE OCA Jr, MD 02/06/17 0625: CONSULT Cardiovascular: CAD, CHF, HTN Allergies: Coded Allergies: pioglitazone (Verified Allergy, Severe, swelling , 03/27/15) erythromycin base (Verified Allergy, Intermediate, rash and hives, 03/27/15) influenza virus vaccine, specific (Unverified Allergy, Intermediate, SOB, 03/27/15) SWELLED UP. morphine (Verified Allergy, Intermediate, 12/16/15) shellfish derived (Verified Allergy, Intermediate, SHRIMP-RASH/HIVES, ) spinach (Verified Allergy, Intermediate, Hives, 12/14/15) AND RASH AND VOMITING torsemide (Verified Allergy, Intermediate, 12/16/15) vancomycin (Verified Allergy, Intermediate, red iveth syndrome with IV/sob , 03/27/15) wool (Verified Allergy, Intermediate, Hives, 12/14/15) AND RASH AND N/V I S O L A T I O N *CONTACT* (Unverified Allergy, Unknown, 03/27/15) Assessment/Plan The patient was seen by Armida Lemon APRN and I have reviewed her findings and plan and agree with above. Due to staffing constraints, we did not have an attending available on this day to see the patient. Problems: ARMIDA LEMON APRN Feb 05, 2017 10:15 CAMPBELL MONTES DE OCA Jr, MD Feb 06, 2017 06:25
[2017-02-05] MEDS: HYDROcodone/APAP 7.5/325MG 1 TAB TABLET PO PRN ×2 (11:06→21:26)
--- NOTE | 2017-02-05 11:47 | HP ---
ADMIT DATE: 02/04/2017 HISTORY OF PRESENT ILLNESS: A 61-year-old gentleman came in through the Emergency Room. The patient has been having problems with breathing here for last 2-3 days prior to admission. The patient has a long history of CHF, COPD. The patient notes that even on 2 liters has difficulty breathing and getting a deep breath, oxygen saturation in the mid 80s, came in through the Emergency Room, needed 6 liters to get his oxygen and is still at 88%. The patient otherwise had that turned down of course. The patient notes a chest x-ray showed possibility for a pneumonic process and as a result of this the patient was admitted for pneumonia exacerbation and COPD, acute respiratory failure, and possibly some early CHF. The patient otherwise denied chest pain. PAST MEDICAL HISTORY: Extensive. He has had a broken nose several times, cataract surgery, tonsillectomy, chronic headaches, CHF, coronary artery disease, pleural effusions, all these worked up at ; congestive heart failure, coronary artery disease, peripheral vascular disease, open heart surgery x 4, cardiac catheterization, coronary artery stent placement, hypotension, hypercholesterolemia, DVTs, 4 pleural effusions that have been drained, COPD, bronchitis, pneumonia's multiple times, sleep apnea with oxygen, hiatal hernia, GERD, abdominal surgery, obesity, hypogonadism. He has had a leiomyoma. He has had severe degenerative arthritis of his knees and back, back surgery, left leg surgery, type 2 diabetes, poorly controlled; hypothyroidism, history of smoking, quit smoking 2 years ago, smoking exposure 35 years; tetanus shot for diphtheria, tetanus vaccine positive up-to-date, tetanus toxoid up-to-date. He is positive for MRSA. FAMILY HISTORY: Father with pancreatitis. Brother, daughter and mother with that of asthma and mother with cancer. They have had problems with chronic pancreatitis, hypertriglyceridemia as he has. He has significant problems with triglycerides and been to the [facility] down at . MEDICATIONS: Include that of Norvasc 5 mg, aspirin 325, carvedilol 25 t.i.d., Benadryl 25 p.r.n., furosemide 80 mg tablet daily, Tricor 145, hydralazine 25 mg 4 times a day, hydrocodone, insulin, DuoNeb, Avapro 300 mg, levothyroxine 100 mcg daily, magnesium chloride, metaxalone 800 mg t.i.d., metformin 500 mg, Nasonex 17 grams spray pump, insulin NPH 28 units, Zofran ODT, polymyxin eye drops 1 drop each eye t.i.d., potassium chloride 10 mEq daily, Systane liquid eye drops, Zantac 300 mg daily, Crestor 40 mg daily, sodium chloride nasal spray. ALLERGIES: Multiple. Includes: ERYTHROMYCIN, INFLUENZA VIRUS VACCINE, MORPHINE, PIOGLITAZONE, SHELL FISH, SPINACH, TORSEMIDE, and VANCOMYCIN. REVIEW OF SYSTEMS: Positive for increased shortness of breath, no chest pain. Denies nausea. Just feels weak, tired, marked dyspnea, orthopnea, mild headache, no nausea or vomiting. PHYSICAL EXAMINATION: GENERAL: Pleasant white male. VITAL SIGNS: Blood pressure 180/74, respiratory rate 26, pulse 70, afebrile. HEENT: The patient's head was atraumatic, normocephalic. Eyes: PERRLA without jaundice. Mouth and throat: Poor dentition. NECK: Supple, without JVD or carotid bruits. No thyromegaly. LUNGS: Diminished, poor movement of air, but clear; some crackles noted in the bases. CARDIOVASCULAR: Regular sinus rhythm, S1, S2, without murmur, rub, thrill, or extra heart sounds. ABDOMEN: Very protuberant. EXTREMITIES: No clubbing or cyanosis. Trace edema. NEUROLOGIC: The patient was alert and oriented x 3. LABORATORY DATA: White count 8, hemoglobin 10 and 32. Chemistries 138/3.9 BUN and creatinine normal and blood sugars were basically stable. The patient's blood gas shows 7.37, pCO2 of 59, pO2 of 64. IMPRESSION: Pneumonia of unspecified etiology, community acquired, possible congestive heart failure, type 2 diabetes, morbid obesity, history of coronary artery disease, hypertriglyceridemia, history of pancreatitis, history of heart failure, hypertension, hyperlipidemia. PLAN: The patient will be admitted, placed on IV antibiotic therapy, aggressive pulmonary toilet, monitored in the ICU and make further evaluation on him as indicated. ROSEANN OLIVIER MD DR: CAIO/erik JOB#: [id number] / [id number]
[2017-02-05] MEDS: diphenhydrAMINE HCL 25 MG CAPSULE PO PRN ×2 (12:58→21:26)
[2017-02-05] MEDS: FUROSEMIDE 40 MG/4 ML VIAL IVP SCH ×2 (15:11→21:25)
[2017-02-05] MEDS ORDERED: TOBRAMYCIN 0.3% OPHTH SOLUTION 5ML BOTTLE. OU PRN (17:30)
[2017-02-05] MEDS: ALBUTEROL SULFATE 2.5 MG/3 ML NEBU. NEB PRN (20:47)
[2017-02-05] MEDS: FAMOTIDINE 20 MG TABLET PO SCH (21:25)
[2017-02-05] MEDS: ATORVASTATIN CALCIUM 20 MG TABLET PO SCH (21:26)
[2017-02-06] MEDS: AZTREONAM 1 GM in IV NORMAL SALINE 50ML 50 ML IV SCH ×5 (00:16→23:17)
[2017-02-06 03:00] VITALS: BP 168/66
[2017-02-06] MEDS: LEVOTHYROXINE 100 MCG TABLET PO SCH (06:12)
[2017-02-06] MEDS: ALBUTEROL SULFATE 2.5 MG/3 ML NEBU. NEB PRN ×4 (06:12→21:08)
[2017-02-06 07:55] LABS: BASO # 0.1 x10^3/uL (0.0-0.2); BASO % 1 % (0-3); EOS # 0.4 x10^3/uL (0.0-0.7); EOS % 5 % (0-3); HEMATOCRIT 33.2 % (39.0-53.0); HEMOGLOBIN 10.8 g/dL (13.0-17.5); LYMPH # 1.1 x10^3/uL (1.0-4.8); LYMPH % 14 % (24-48); MEAN CORPUSCULAR HEMOGLOBIN 26 pg (25-35); MEAN CORPUSCULAR HGB CONC 33 g/dL (31-37); MEAN CORPUSCULAR VOLUME 81 fL (79-100); MONO # 0.9 x10^3/uL (0.0-1.1); MONO % 11 % (0-9); NEUT # 5.7 x10^3uL (1.8-7.7); NEUT % 69 % (31-73); PLATELET COUNT 137 x10^3/uL (140-400); RED CELL DISTRIBUTION WIDTH 16.7 % (11.5-14.5); WHITE BLOOD COUNT 8.2 x10^3/uL (4.0-11.0)
[2017-02-06 08:00] VITALS: BP 177/75
[2017-02-06] MEDS: NPH HUMAN INSULIN ISOPHANE SQ SCH (08:00)
[2017-02-06 08:09] LABS: ALBUMIN 3.5 g/dL (3.4-5.0); CALCIUM 9.1 mg/dL (8.5-10.1); CREATININE 0.9 mg/dL (0.7-1.3); GFR 85.2; MAGNESIUM 1.7 mg/dL (1.8-2.4); POTASSIUM 3.9 mmol/L (3.5-5.1); TOTAL BILIRUBIN 0.5 mg/dL (0.2-1.0); TOTAL PROTEIN 6.9 g/dL (6.4-8.2)
[2017-02-06] MEDS: ENOXAPARIN 40 MG/0.4 ML DISP.SYRIN. SQ SCH ×2 (08:13→22:33)
[2017-02-06] MEDS: DOXYCYCLINE HYCLATE 100 MG TABLET PO SCH ×2 (08:16→22:35)
[2017-02-06] MEDS: amLODIPine BESYLATE 10 MG TABLET PO SCH (08:16)
[2017-02-06] MEDS: FENOFIBRATE NANOCRYSTALLIZED 145 MG TABLET PO SCH (08:16)
[2017-02-06] MEDS: metFORMIN 500 MG TABLET PO SCH ×2 (08:16→17:20)
[2017-02-06] MEDS: LOSARTAN 50 MG TABLET. PO SCH (08:16)
[2017-02-06] MEDS: POTASSIUM CHLORIDE 10 MEQ TABLET.ER. PO SCH (08:16)
[2017-02-06] MEDS: ASPIRIN 325 MG TABLET PO SCH (08:17)
[2017-02-06] MEDS: MAGNESIUM CHLORIDE ER 64 MG TABLET.ER PO SCH (08:17)
[2017-02-06] MEDS: hydrALAZINE 25 MG TABLET PO SCH ×4 (08:17→22:34)
[2017-02-06] MEDS: FUROSEMIDE 40 MG/4 ML VIAL IVP SCH ×2 (08:18→22:34)
[2017-02-06] MEDS: INSULIN ASPART 300 UNITS/3 ML INSULN.PEN SQ SCH ×3 (08:23→17:38)
[2017-02-06] MEDS: FLUTICASONE 50MCG/NASAL SPRAY 16GM BOTTLE. NS SCH (08:24)
[2017-02-06] MEDS: DEXAMETHASONE 0.1% OPHTH SOLUTION 5ML BOTTLE. OU SCH ×2 (08:24→22:37)
[2017-02-06] MEDS: POLYMYXIN/TRIMETHOPRIM OPHTH SOLUTION 10ML BOTTLE. OU SCH ×2 (08:25→22:33)
--- NOTE | 2017-02-06 08:45 | PDOC ---
PROGRESS NOTES Diagnosis Problem Problems Medical Problems: (1) CHF (congestive heart failure) Status: Acute (2) COPD exacerbation Status: Acute (3) Left lower lobe pneumonia Status: Acute Assessment Problems CHF, acute on chronic, with preserved EF. He is better, but not quite back to baseline. Will obtain follow up chest x-ray today. Continue IV Lasix. F/U BMP in AM. Continue other medications. CAD. He is not having angina. Continue present medications. Hypertension. BP elevated at times. May need to adjust medication if this persists. Hypercholesterolemia. He is at goal. Continue statin. Bradycardia. This is chronic. Continue beta cece. May consider outpatient event recorder. May need to change Coreg to beta cece with ERIC (intrinsic sympathomimetic activity). Subjective We are seeing him for CHF. S: Breathing and edema are better, but not quite back to normal. Denies chest pain, palpitations, syncope. He states that his heart rates run in the 40's and 50's all the time at home. Objective Vital Signs Date Time Temp Pulse Resp B/P (MAP) Pulse Ox O2 Delivery O2 Flow Rate FiO2 02/06/17 08:17 68 177/75 02/06/17 06:12 96 Nasal Cannula 3.0 02/06/17 03:00 20 02/05/17 23:19 97.8 Intake and Output 02/06/17 07:00 Intake Total 5430 ml Output Total 4850 ml Balance 580 ml Intake Oral 5280 ml IV Total 150 ml Output Urine Total 4850 ml # Voids 4 Physical Exam General: Obese. NAD. HEENT: Normocephalic. Eyes: No xanthelasma. Lungs: CTA. CV: Bradycardia. Normal S1/S2. No murmur, rub gallop. Abdomen. +BS. Soft. LE: Trace bilateral pretibial edema. Neuro: CN 2-12 intact. Normal motor strength upper and lower extremities bilaterally. Psych: Pleasant with a normal affect. Review of Relevant I have reviewed the following items prema (where applicable) has been applied. Labs Laboratory Tests Test 02/04/17 15:49 02/04/17 16:35 02/04/17 18:30 02/04/17 18:50 White Blood Count 8.1 x10^3/uL (4.0-11.0) Red Blood Count 4.12 x10^6/uL (4.30-5.70) Hemoglobin 10.9 g/dL (13.0-17.5) Hematocrit 33.5 % (39.0-53.0) Mean Corpuscular Volume 81 fL (79-100) Mean Corpuscular Hemoglobin 26 pg (25-35) Mean Corpuscular Hemoglobin Concent 32 g/dL (31-37) Red Cell Distribution Width 16.7 % (11.5-14.5) Platelet Count 143 x10^3/uL (140-400) Neutrophils (%) (Auto) 73 % (31-73) Lymphocytes (%) (Auto) 12 % (24-48) Monocytes (%) (Auto) 11 % (0-9) Eosinophils (%) (Auto) 3 % (0-3) Basophils (%) (Auto) 1 % (0-3) Neutrophils # (Auto) 5.9 x10^3uL (1.8-7.7) Lymphocytes # (Auto) 1.0 x10^3/uL (1.0-4.8) Monocytes # (Auto) 0.9 x10^3/uL (0.0-1.1) Eosinophils # (Auto) 0.2 x10^3/uL (0.0-0.7) Basophils # (Auto) 0.1 x10^3/uL (0.0-0.2) Sodium Level 139 mmol/L (136-145) Potassium Level 3.9 mmol/L (3.5-5.1) Chloride Level 100 mmol/L (98-107) Carbon Dioxide Level 36 mmol/L (21-32) Anion Gap 3 (6-14) Blood Urea Nitrogen 13 mg/dL (8-26) Creatinine 0.8 mg/dL (0.7-1.3) Estimated GFR (Cockcroft-Gault) 97.6 BUN/Creatinine Ratio 16 (6-20) Glucose Level 143 mg/dL (70-99) Lactic Acid Level 1.3 mmol/L (0.4-2.0) 1.8 mmol/L (0.4-2.0) Calcium Level 8.7 mg/dL (8.5-10.1) Total Bilirubin 0.4 mg/dL (0.2-1.0) Aspartate Amino Transf (AST/SGOT) 24 U/L (15-37) Alanine Aminotransferase (ALT/SGPT) 33 U/L (16-63) Alkaline Phosphatase 75 U/L (46-116) Troponin I Quantitative < 0.017 ng/mL (0-0.055) LW-Uog-K-Type Natriuretic Peptide 208 pg/mL (0-124) Total Protein 6.8 g/dL (6.4-8.2) Albumin 3.3 g/dL (3.4-5.0) Albumin/Globulin Ratio 0.9 (1.0-1.7) Lipase 58 U/L (73-393) Blood Gas pH 7.37 (7.35-7.46) Blood Gas PCO2 59 mmHg (35-46) Blood Gas PO2 64 mmHg (80-100) Blood Gas HCO3 35 mmol/L (21-28) Arterial Bld O2 Saturation (Calc) 92 % (92-99) FiO2 36 % Nasal Screen MRSA (PCR) Negative (Negative) Test 02/04/17 20:33 02/04/17 22:10 02/05/17 05:44 02/05/17 07:42 Glucose (Fingerstick) 183 mg/dL (70-99) 131 mg/dL (70-99) Lactic Acid Level 0.9 mmol/L (0.4-2.0) White Blood Count 8.5 x10^3/uL (4.0-11.0) Red Blood Count 3.93 x10^6/uL (4.30-5.70) Hemoglobin 10.3 g/dL (13.0-17.5) Hematocrit 32.0 % (39.0-53.0) Mean Corpuscular Volume 81 fL (79-100) Mean Corpuscular Hemoglobin 26 pg (25-35) Mean Corpuscular Hemoglobin Concent 32 g/dL (31-37) Red Cell Distribution Width 16.6 % (11.5-14.5) Platelet Count 136 x10^3/uL (140-400) Neutrophils (%) (Auto) 75 % (31-73) Lymphocytes (%) (Auto) 13 % (24-48) Monocytes (%) (Auto) 10 % (0-9) Eosinophils (%) (Auto) 2 % (0-3) Basophils (%) (Auto) 1 % (0-3) Neutrophils # (Auto) 6.4 x10^3uL (1.8-7.7) Lymphocytes # (Auto) 1.1 x10^3/uL (1.0-4.8) Monocytes # (Auto) 0.9 x10^3/uL (0.0-1.1) Eosinophils # (Auto) 0.2 x10^3/uL (0.0-0.7) Basophils # (Auto) 0.1 x10^3/uL (0.0-0.2) Sodium Level 138 mmol/L (136-145) Potassium Level 3.9 mmol/L (3.5-5.1) Chloride Level 99 mmol/L (98-107) Carbon Dioxide Level 35 mmol/L (21-32) Anion Gap 4 (6-14) Blood Urea Nitrogen 14 mg/dL (8-26) Creatinine 0.8 mg/dL (0.7-1.3) Estimated GFR (Cockcroft-Gault) 97.6 Glucose Level 135 mg/dL (70-99) Calcium Level 8.7 mg/dL (8.5-10.1) Triglycerides Level 153 mg/dL (0-150) Cholesterol Level 115 mg/dL (0-200) LDL Cholesterol, Calculated 52 mg/dL (0-100) VLDL Cholesterol, Calculated 30 mg/dL (0-40) Non-HDL Cholesterol Calculated 82 mg/dL (0-129) HDL Cholesterol 33 mg/dL (40-60) Cholesterol/HDL Ratio 3.0 Test 02/05/17 11:51 02/05/17 16:46 02/05/17 21:37 02/06/17 07:24 Glucose (Fingerstick) 141 mg/dL (70-99) 67 mg/dL (70-99) 176 mg/dL (70-99) White Blood Count 8.2 x10^3/uL (4.0-11.0) Red Blood Count 4.10 x10^6/uL (4.30-5.70) Hemoglobin 10.8 g/dL (13.0-17.5) Hematocrit 33.2 % (39.0-53.0) Mean Corpuscular Volume 81 fL (79-100) Mean Corpuscular Hemoglobin 26 pg (25-35) Mean Corpuscular Hemoglobin Concent 33 g/dL (31-37) Red Cell Distribution Width 16.7 % (11.5-14.5) Platelet Count 137 x10^3/uL (140-400) Neutrophils (%) (Auto) 69 % (31-73) Lymphocytes (%) (Auto) 14 % (24-48) Monocytes (%) (Auto) 11 % (0-9) Eosinophils (%) (Auto) 5 % (0-3) Basophils (%) (Auto) 1 % (0-3) Neutrophils # (Auto) 5.7 x10^3uL (1.8-7.7) Lymphocytes # (Auto) 1.1 x10^3/uL (1.0-4.8) Monocytes # (Auto) 0.9 x10^3/uL (0.0-1.1) Eosinophils # (Auto) 0.4 x10^3/uL (0.0-0.7) Basophils # (Auto) 0.1 x10^3/uL (0.0-0.2) Test 02/06/17 08:05 Glucose (Fingerstick) 182 mg/dL (70-99) Microbiology 02/04/17 Blood Culture - Preliminary, Resulted NO GROWTH AFTER 1 DAY Medications Current Medications Albuterol/ Ipratropium (Duoneb) 3 ml STK-MED ONCE .ROUTE ; Start 02/04/17 at 15 :57; Stop 02/04/17 at 15:58; Status DC Albuterol/ Ipratropium (Duoneb) 3 ml 1X ONCE NEB Last administered on t 16:00; Start 02/04/17 at 16:00; Stop 02/04/17 at 16:11; Status DC Piperacillin Sod/ Tazobactam Sod 3.375 gm/Sodium Chloride 50 ml @ 100 mls/hr 1X ONCE IV Last administered on 02/04/17t 17:14; Start 02/04/17 at 16:45; Stop 02/04/17 at 17:14; Status DC Levofloxacin/ Dextrose 150 ml @ 150 mls/hr 1X ONCE IV ; Start 02/04/17 at 16: 45; Stop 02/04/17 at 17:44; Status DC Ondansetron HCl (Zofran) 4 mg PRN Q4HRS PRN IV NAUSEA/VOMITING; Start at 17:00; Stop 02/05/17 at 16:59; Status DC Acetaminophen (Tylenol) 650 mg PRN Q4HRS PRN PO FEVER; Start 02/04/17 at 17:00 ; Stop 02/04/17 at 20:24; Status DC Albuterol/ Ipratropium (Duoneb) 3 ml RTQID NEB Last administered on 02/05/17 16:54; Start 02/04/17 at 20:00; Stop 02/05/17 at 19:59; Status DC Fentanyl Citrate (Fentanyl 2ml Vial) 75 mcg PRN Q4HRS PRN IV pain ; Start at 17:00 Sodium Chloride 50 ml @ As Directed STK-MED ONCE .ROUTE ; Start 02/04/17 at 16: 54; Stop 02/04/17 at 16:55; Status DC Piperacillin Sod/ Tazobactam Sod (Zosyn) 3.375 gm STK-MED ONCE IV ; Start 02/04 at 16:54; Stop 02/04/17 at 16:55; Status DC Acetaminophen (Tylenol) 325 mg PRN Q6HRS PRN PO PAIN; Start 02/04/17 at 18:15 Albuterol Sulfate (Ventolin Hfa) 2 puff PRN QID PRN IH SOA; Start 02/04/17 at 18:15; Stop 02/04/17 at 20:24; Status DC Amlodipine Besylate (Norvasc) 10 mg DAILY PO Last administered on 02/06/17 08 :16; Start 02/05/17 at 09:00 Aspirin (Venita Aspirin) 325 mg DAILY PO Last administered on 02/06/17 08:17; Start 02/05/17 at 09:00 Bupropion HCl (Wellbutrin Xl) 150 mg DAILY PO ; Start 02/05/17 at 09:00; Stop 02/05/17 at 09:00; Status DC Clonidine HCl (Catapres Tts-3) 1 patch WEEKLY TD ; Start 02/11/17 at 09:00; Stop 02/11/17 at 09:00; Status DC Fenofibrate (Tricor) 145 mg DAILY PO Last administered on 02/06/17 08:16; Start 02/05/17 at 09:00 Furosemide (Lasix) 80 mg DAILY PO ; Start 02/05/17 at 09:00; Stop 02/05/17 at 09:00; Status DC Hydralazine HCl (Apresoline) 25 mg [id number] PO Last administered on 02/06/17 08:17; Start 02/04/17 at 21:00 Hydrochlorothiazide (Hydrodiuril) 25 mg DAILY PO ; Start 02/05/17 at 09:00; Stop 02/05/17 at 09:22; Status DC Acetaminophen/ Hydrocodone Bitart (Lortab 7.5/325) 1 tab PRN Q6HRS PRN PO PAIN Last administered on 02/04/17 23:30; Start 02/04/17 at 18:15; Stop 02/05/17 at 10:46; Status DC Albuterol/ Ipratropium (Duoneb) 3 ml RTQID NEB ; Start 02/04/17 at 20:00; Stop 02/04/17 at 23:36; Status DC Levothyroxine Sodium (Synthroid) 100 mcg [id number] PO Last administered on 06:12; Start 02/05/17 at 07:00 Metaxalone (Skelaxin) 800 mg PRN TID PRN PO PAIN; Start 02/04/17 at 18:15 Metformin HCl (Glucophage) 500 mg BIDWMEALS PO Last administered on 02/06/17 08:16; Start 02/05/17 at 08:00 Ondansetron HCl (Zofran Odt) 4 mg PRN Q8HRS PRN PO NAUSEA; Start 02/04/17 at 18:15 Polymyxin/ Trimethoprim Sulfate (Polytrim) 1 drop TID OU Last administered on 02/05/17 12:58; Start 02/04/17 at 21:00; Stop 02/05/17 at 17:30; Status DC Carvedilol (Coreg) 25 mg TID PO Last administered on 02/05/17 21:25; Start 02/04/17 at 21:00; Status Future Hold Insulin Aspart (NovoLOG) 38 units TIDBFRMEAL SQ Last administered on 08:23; Start 02/05/17 at 07:30 Losartan Potassium (Cozaar) 100 mg DAILY PO Last administered on 02/06/17 08: 16; Start 02/05/17 at 09:00 Magnesium Chloride (Mag Delay) 64 mg DAILY PO Last administered on 02/06/17 08:17; Start 02/05/17 at 09:00 Fluticasone Propionate (Flonase) 2 spray DAILY NS Last administered on 08:16; Start 02/05/17 at 09:00 Non-Formulary Medication 28 unit DAILYWBKFT SQ Last administered on 02/05/17 08:00; Start 02/05/17 at 08:00; Status UNV Non-Formulary Medication 88 unit HS SQ ; Start 02/04/17 at 21:00; Stop at 21:00; Status DC Potassium Chloride (Klor-Con) 10 meq DAILYWBKFT PO Last administered on 08:16; Start 02/05/17 at 08:00 Artificial Tears (Artificial Tears) 1 drop PRN Q4HRS PRN OU DRY EYE Last administered on 02/05/17 08:17; Start 02/04/17 at 19:00 Famotidine (Pepcid) 20 mg QHS PO Last administered on 02/05/17 21:25; Start 02/04/17 at 21:00 Atorvastatin Calcium (Lipitor) 80 mg QHS PO Last administered on 02/05/17 21: 26; Start 02/04/17 at 21:00 Tobramycin Sulfate (Tobrex Ophth Soln) 1 drop QID OU Last administered on 02/05 12:58; Start 02/04/17 at 21:00; Stop 02/05/17 at 17:30; Status DC Enoxaparin Sodium (Lovenox) 40 mg Q12H SQ Last administered on 02/06/17 08:13 ; Start 02/04/17 at 20:00 Furosemide (Lasix) 40 mg DAILY IVP Last administered on 02/05/17 08:18; Start 02/05/17 at 09:00; Stop 02/05/17 at 10:24; Status DC Aztreonam 1 gm/ Sodium Chloride 50 ml @ 100 mls/hr Q6HRS IV Last administered on 02/06/17 06:13; Start 02/05/17 at 00:00 Doxycycline Hyclate (Vibra-Tab) 100 mg BID PO Last administered on 02/06/17 08:16; Start 02/05/17 at 09:00 Levofloxacin/ Dextrose 150 ml @ 150 mls/hr 1X ONCE IV Last administered on 20:29; Start 02/04/17 at 18:30; Stop 02/04/17 at 19:29; Status DC Dexamethasone (Maxidex) 1 drop QID OU Last administered on 02/05/17 12:59; Start 02/04/17 at 21:00; Stop 02/05/17 at 21:00; Status DC Albuterol Sulfate (Ventolin) 2.5 mg PRN Q6HRS PRN NEB SHORTNESS OF BREATH; Start 02/04/17 at 20:30; Stop 02/04/17 at 20:30; Status DC Albuterol Sulfate (Ventolin) 2.5 mg PRN Q6HRS PRN NEB SHORTNESS OF BREATH Last administered on 02/06/17 06:12; Start 02/04/17 at 20:30 Furosemide (Lasix) 40 mg BID IVP Last administered on 02/06/17 08:18; Start 02/05/17 at 15:00 Acetaminophen/ Hydrocodone Bitart (Lortab 7.5/325) 2 tab PRN Q6HRS PRN PO PAIN Last administered on 02/05/17 21:26; Start 02/05/17 at 10:45 Diphenhydramine HCl (Benadryl) 25 mg PRN Q6HRS PRN PO ITCHING Last administered on 02/05/17 21:26; Start 02/05/17 at 13:00 Dexamethasone (Maxidex) 1 drop BID OU Last administered on 02/05/17 21:22; Start 02/05/17 at 21:00 Polymyxin/ Trimethoprim Sulfate (Polytrim) 1 drop BID OU Last administered on 02/05/17 21:23; Start 02/05/17 at 21:00 Tobramycin Sulfate (Tobrex Ophth Soln) 1 drop PRN QID PRN OU EYE ISSUES; Start 02/05/17 at 17:30 Active Scripts Active Potassium Chloride 10 Meq Capsule.er 1 Cap PO DAILY take two capsules daily for 7 days, then decrease to 1 capsule daily Furosemide 40 Mg Tablet 80 Mg PO DAILY 80mg for 1 week, then decrease to 40mg daily Mag Delay (Magnesium Chloride) 64 Mg Tablet.er 64 Mg PO DAILY 1 tablet daily Duoneb 0.5-3(2.5) Mg/3 Ml (Albuterol/Ipratropium) 3 Ml Ampul.neb 3 Ml NEB RTQID Synthroid (Levothyroxine Sodium) 100 Mcg Tablet 100 Mcg PO DAILY07 for low thyroid last dose: 11/04 @ 6:02 AM next dose: 11/05 AM Reported [place] (Sodium Chloride) 104 Ml [place] 104 Ml NS Q1HR PRN Amlodipine Besylate 10 Mg Tablet 1 Tab PO DAILY LAST DOSE GIVEN: DATE: TODAY TIME: AM NEXT DOSE DUE: DATE: TOMORROW TIME: AM Systane Liquid Gel Eye Drops (Propylene Glycol/Peg 400) 15 Ml Drp.lq.gel 15 Ml OP Q4HRS LAST DOSE GIVEN: DATE: TODAY TIME: AFTERNOON NEXT DOSE DUE: DATE: TODAY TIME: EVENING Nasonex (Mometasone Furoate) 17 Gm [place].pump 2 Spr NS PRN BID PRN LAST DOSE GIVEN: DATE: TODAY TIME: AM NEXT DOSE DUE: DATE: TODAY TIME: PM Ondansetron Odt (Ondansetron) 4 Mg Tab.rapdis 1 Tab PO Q8HRS PRN LAST DOSE GIVEN: DATE: TIME: NEXT DOSE DUE: DATE: TODAY TIME: IF AND WHEN NEEDED Polymyxin B-Tmp Eye Drops (Polymyxin B Sulf/Trimethoprim) 10 Ml Drops 1 Drop EACHEYE TID LAST DOSE GIVEN: DATE: TODAY TIME: AFTERNOON NEXT DOSE DUE: DATE: TODAY TIME: AT BEDTIME Metaxalone 800 Mg Tablet 800 Mg PO TID PRN LAST DOSE GIVEN: DATE: TIME: NEXT DOSE DUE: DATE: TODAY TIME: IF AND WHEN NEEDED Humulin N (Nph, Human Insulin Isophane) 100 Unit/1 Ml Vial 28 Unit SQ DAILYWBKFT LAST DOSE GIVEN: DATE: TODAY TIME: WITH BREAKFAST NEXT DOSE DUE: DATE: TOMORROW TIME: WITH BREAKFAST Tylenol (Acetaminophen) 325 Mg Tablet 1 Tab PO Q6HRS PRN LAST DOSE GIVEN: DATE: TIME: NEXT DOSE DUE: DATE: TODAY TIME: IF AND WHEN NEEDED Coreg (Carvedilol) 25 Mg Tablet 1 Tab PO TID LAST DOSE GIVEN: DATE: TODAY TIME: AFTERNOON NEXT DOSE DUE: DATE: TODAY TIME: PM Lortab 7.5-325 mg Tablet (Hydrocodone/Acetaminophen) 1 Each Tablet 1-2 Tab PO Q6HRS PRN LAST DOSE GIVEN: DATE: TODAY TIME: 12 NOON NEXT DOSE DUE: DATE: TODAY TIME: AFTER 6 PM IF NEEDED Humalog (Insulin Lispro) 100 Unit/1 Ml Insuln.pen 32-36 Unit SQ TIDAC LAST DOSE GIVEN: DATE: TODAY TIME: WITH DINNER NEXT DOSE DUE: DATE: TOMORROW TIME: WITH BREAKFAST Tricor (Fenofibrate Nanocrystallized) 145 Mg Tablet 1 Tab PO DAILY LAST DOSE GIVEN: DATE: TODAY TIME: AM NEXT DOSE DUE: DATE: TOMORROW TIME: AM Hydralazine Hcl 25 Mg Tablet 25 Mg PO [id number] LAST DOSE GIVEN: DATE: TODAY TIME: 5 PM NEXT DOSE DUE: DATE: TODAY TIME: AT BEDTIME Metformin Hcl 500 Mg Tablet 1,000 Mg PO BIDWMEALS LAST DOSE GIVEN: DATE: TODAY TIME: WITH DINNER NEXT DOSE DUE: DATE: TOMORROW TIME: WITH BREAKFAST Benadryl (Diphenhydramine Hcl) 25 Mg Capsule 25-50 Mg PO PRN Q6HRS PRN LAST DOSE GIVEN: DATE: TIME: NEXT DOSE DUE: DATE: TODAY TIME: AFTER IF NEEDED Crestor (Rosuvastatin Calcium) 40 Mg Tablet 40 Mg PO DAILY LAST DOSE GIVEN: DATE: TODAY TIME: AM NEXT DOSE DUE: DATE: TOMORR TIME: AM Aspirin 325 Mg Tablet 325 Mg PO DAILY LAST DOSE GIVEN: DATE: TODAY TIME: AM NEXT DOSE DUE: DATE: TOMORR TIME: AM Ranitidine Hcl 300 Mg Tablet 300 Mg PO DAILY LAST DOSE GIVEN: DATE: TODAY TIME: AM NEXT DOSE DUE: DATE: TOMORROW TIME: AM Avapro (Irbesartan) 300 Mg Tablet 300 Mg PO DAILY LAST DOSE GIVEN: DATE: TODAY TIME: AM NEXT DOSE DUE: DATE: TOMORR TIME: AM Vitals/I & O Vital Sign - Last 24 Hours 02/05/17 02/05/17 02/05/17 02/05/17 09:31 10:19 11:00 12:58 Pulse 75 88 Pulse Ox 95 O2 Delivery Nasal Cannula Room Air O2 Flow Rate 3.0 02/05/17 02/05/17 02/05/17 02/05/17 12:58 13:00 14:40 16:11 Temp 97.2 Pulse 74 58 Resp 24 B/P (MAP) 149/60 (89) Pulse Ox 98 O2 Delivery Nasal Cannula Room Air O2 Flow Rate 2.0 02/05/17 02/05/17 02/05/17 02/05/17 16:54 17:02 18:14 18:14 Temp 97.2 97.5 Pulse 57 75 Resp 22 B/P (MAP) 127/59 (81) Pulse Ox 93 97 O2 Delivery Nasal Cannula Room Air O2 Flow Rate 3.0 02/05/17 02/05/17 02/05/17 02/05/17 20:00 20:48 21:25 21:25 Pulse 75 75 B/P (MAP) 127/59 127/59 Pulse Ox 93 O2 Delivery Room Air Nasal Cannula O2 Flow Rate 3.0 02/05/17 02/05/17 02/05/17 02/05/17 21:26 22:26 23:19 23:50 Temp 97.8 Pulse 55 Resp 20 20 20 B/P (MAP) 158/54 (88) Pulse Ox 95 94 96 O2 Delivery Nasal Cannula Room Air Room Air Room Air O2 Flow Rate 3.0 3.0 3.0 02/06/17 02/06/17 02/06/17 02/06/17 03:00 04:00 06:12 08:16 Pulse 62 68 Resp 20 B/P (MAP) 168/66 (100) 177/75 Pulse Ox 97 96 O2 Delivery Room Air Room Air Nasal Cannula O2 Flow Rate 3.0 3.0 02/06/17 02/06/17 08:16 08:17 Pulse 68 68 B/P (MAP) 177/75 177/75 Intake and Output 02/05/17 02/05/17 02/06/17 15:00 23:00 07:00 Intake Total 2050 ml 2370 ml 1010 ml Output Total 800 ml 2575 ml 1475 ml Balance 1250 ml -205 ml -465 ml CAMPBELL MONTES DE OCA Jr, MD Feb 06, 2017 08:45
--- NOTE | 2017-02-06 09:31 | RAD ---
Chest radiograph Two Views 02/06/2017 Clinical indication: Congestive heart failure Comparison: Chest radiograph 02/04/2017 Findings: Unchanged cardiac enlargement without pulmonary venous congestion. Improvement and trace left pleural effusion. Stable right pleural effusion, trace. Improvement in bibasilar patchy opacities. No pneumothorax. There is unchanged prominence of the right paratracheal stripe compatible with exuberant mediastinal fat. Impression: Improvement in findings of CHF and/or volume overload with persistent small bilateral pleural effusions and patchy left basilar opacities.
[2017-02-06] MEDS: LACTOBACILLUS RHAMNOSUS GG 1 CAPSULE. PO SCH ×2 (09:37→22:35)
[2017-02-06] MEDS: HYDROcodone/APAP 7.5/325MG 1 TAB TABLET PO PRN ×3 (09:37→23:25)
[2017-02-06] MEDS: diphenhydrAMINE HCL 25 MG CAPSULE PO PRN ×2 (09:37→16:08)
[2017-02-06 12:22] VITALS: BP 148/57
[2017-02-06] MEDS: CARVEDILOL 12.5 MG TABLET PO SCH ×2 (14:07→21:00)
[2017-02-06 15:01] VITALS: BP 145/52
[2017-02-06 18:33] VITALS: BP 120/55
[2017-02-06] MEDS: ATORVASTATIN CALCIUM 20 MG TABLET PO SCH (22:34)
[2017-02-06] MEDS: FAMOTIDINE 20 MG TABLET PO SCH (22:35)
[2017-02-06 23:25] VITALS: BP 150/94
[2017-02-07] VITALS (7 sets, daily range): BP systolic 110–166; BP diastolic 51–81
[2017-02-07] MEDS: diphenhydrAMINE HCL 25 MG CAPSULE PO PRN ×3 (00:16→15:53)
--- NOTE | 2017-02-07 04:32 | PN ---
DATE: SUBJECTIVE: He is a 61-year-old gentleman came in with CHF as well as exacerbation of COPD and possible pneumonic process, acute respiratory failure. He is making good progress overall. He is feeling better. He has good diuresis. He is still feeling very weak, but much improved. Cardiology has seen him. OBJECTIVE: VITAL SIGNS: Blood pressure 170/75, respiratory rate 22, pulse 70, afebrile, 94% oxygen saturation. LUNGS: Diminished, but clearer than they have been. CARDIOVASCULAR: Regular sinus rhythm. Chest x-ray shows improvement in findings of CHF and much better improvement overall with the infiltrative process. LABORATORY DATA: Basically holding study with chronic anemia, electrolytes, BUN and creatinine, blood sugars ____ elevated. He has had history of magnesium slightly low by 1/10th of the milliequivalent. IMPRESSION: Therefore, acute on top of chronic diastolic heart failure, pneumonia of unspecified etiology, community acquired, exacerbation of chronic obstructive pulmonary disease, acute respiratory failure, type 2 diabetes, morbid obesity. PLAN: Continue to monitor the patient and taper down on his Lasix and make further evaluation on him as indicated. ROSEANN OLIVIER MD DR: CAIO/erik JOB#: [id number] / [id number]
[2017-02-07] MEDS: LEVOTHYROXINE 100 MCG TABLET PO SCH (05:49)
[2017-02-07] MEDS: ALBUTEROL SULFATE 2.5 MG/3 ML NEBU. NEB PRN ×4 (05:50→22:39)
[2017-02-07] MEDS: AZTREONAM 1 GM in IV NORMAL SALINE 50ML 50 ML IV SCH ×3 (05:50→17:27)
[2017-02-07 07:29] LABS: CALCIUM 9.2 mg/dL (8.5-10.1); CREATININE 0.8 mg/dL (0.7-1.3); GFR 97.6
[2017-02-07] MEDS: NPH HUMAN INSULIN ISOPHANE SQ SCH (08:00)
[2017-02-07] MEDS: INSULIN ASPART 300 UNITS/3 ML INSULN.PEN SQ SCH ×3 (08:24→17:37)
[2017-02-07] MEDS: POLYMYXIN/TRIMETHOPRIM OPHTH SOLUTION 10ML BOTTLE. OU SCH ×2 (09:00→20:01)
[2017-02-07] MEDS: DEXAMETHASONE 0.1% OPHTH SOLUTION 5ML BOTTLE. OU SCH ×2 (09:05→20:01)
[2017-02-07] MEDS: FLUTICASONE 50MCG/NASAL SPRAY 16GM BOTTLE. NS SCH (09:07)
[2017-02-07] MEDS: LACTOBACILLUS RHAMNOSUS GG 1 CAPSULE. PO SCH ×2 (09:07→20:03)
[2017-02-07] MEDS: MAGNESIUM CHLORIDE ER 64 MG TABLET.ER PO SCH (09:07)
[2017-02-07] MEDS: amLODIPine BESYLATE 10 MG TABLET PO SCH (09:09)
[2017-02-07] MEDS: metFORMIN 500 MG TABLET PO SCH ×2 (09:09→17:28)
[2017-02-07] MEDS: hydrALAZINE 25 MG TABLET PO SCH ×4 (09:11→20:03)
[2017-02-07] MEDS: LOSARTAN 50 MG TABLET. PO SCH (09:13)
[2017-02-07] MEDS: DOXYCYCLINE HYCLATE 100 MG TABLET PO SCH ×2 (09:13→20:03)
[2017-02-07] MEDS: FENOFIBRATE NANOCRYSTALLIZED 145 MG TABLET PO SCH (09:14)
[2017-02-07] MEDS: CARVEDILOL 12.5 MG TABLET PO SCH ×3 (09:15→22:19)
[2017-02-07] MEDS: ASPIRIN 325 MG TABLET PO SCH (09:16)
[2017-02-07] MEDS: POTASSIUM CHLORIDE 10 MEQ TABLET.ER. PO SCH (09:16)
[2017-02-07] MEDS: FUROSEMIDE 40 MG/4 ML VIAL IVP SCH ×2 (09:17→20:01)
[2017-02-07] MEDS: HYDROcodone/APAP 7.5/325MG 1 TAB TABLET PO PRN ×2 (10:05→22:18)
[2017-02-07] MEDS: ENOXAPARIN 40 MG/0.4 ML DISP.SYRIN. SQ SCH ×2 (10:06→20:01)
[2017-02-07] MEDS ORDERED: FLUTICASONE 50MCG/NASAL SPRAY 16GM BOTTLE. NS SCH (19:59)
[2017-02-07] MEDS: FAMOTIDINE 20 MG TABLET PO SCH (20:01)
[2017-02-07] MEDS ORDERED: POLYVINYL ALCOHOL 1.4% OPHTH SOLUTION 15ML BOTTLE. OU PRN (20:02)
[2017-02-07] MEDS: ATORVASTATIN CALCIUM 20 MG TABLET PO SCH (20:03)
[2017-02-08] MEDS: AZTREONAM 1 GM in IV NORMAL SALINE 50ML 50 ML IV SCH ×3 (00:12→13:27)
--- NOTE | 2017-02-08 01:59 | PN ---
DATE: SUBJECTIVE: The patient in with acute exacerbation of COPD and acute on top of chronic diastolic heart failure, acute respiratory failure. The patient is resting fairly comfortably, making fairly good progress, still very weak, still having difficulty breathing. The patient's heart rate went down in 30s last night. This morning this come up into 60s. OBJECTIVE: VITAL SIGNS: Blood pressure 160/80, respiratory rate 20, pulse 60, afebrile. GENERAL: The patient is alert and oriented. LUNGS: Diminished throughout, poor movement of air. CARDIOVASCULAR: Regular sinus rhythm. ABDOMEN: Soft, protuberant. EXTREMITIES: Without clubbing, cyanosis. Trace edema noted. LABORATORY DATA: The patient's electrolytes were basically stable. Sugars primarily in the 100s. IMPRESSION: Acute on top of chronic diastolic heart failure, possible pneumonic process, acute respiratory failure, morbid obesity, type 2 diabetes, coronary artery disease, bradycardia. PLAN: The patient will continued to be monitored by Dr. Bertrand, Cardiology, make further evaluation on his bradycardia. ROSEANN OLIVIER MD DR: CAIO/erik JOB#: [id number] / [id number]
[2017-02-08] MEDS: ALBUTEROL SULFATE 2.5 MG/3 ML NEBU. NEB PRN (05:51)
[2017-02-08] MEDS: LEVOTHYROXINE 100 MCG TABLET PO SCH (06:11)
[2017-02-08 06:12] VITALS: BP 149/69
[2017-02-08 07:28] LABS: BASO % 0 % (0-3); EOS # 0.5 x10^3/uL (0.0-0.7); EOS % 6 % (0-3); HEMATOCRIT 32.1 % (39.0-53.0); HEMOGLOBIN 10.4 g/dL (13.0-17.5); LYMPH # 1.1 x10^3/uL (1.0-4.8); LYMPH % 14 % (24-48); MEAN CORPUSCULAR HEMOGLOBIN 26 pg (25-35); MEAN CORPUSCULAR HGB CONC 32 g/dL (31-37); MEAN CORPUSCULAR VOLUME 81 fL (79-100); MONO # 0.9 x10^3/uL (0.0-1.1); MONO % 12 % (0-9); NEUT # 5.2 x10^3uL (1.8-7.7); NEUT % 68 % (31-73); PLATELET COUNT 136 x10^3/uL (140-400); RED BLOOD COUNT 3.94 x10^6/uL (4.30-5.70); RED CELL DISTRIBUTION WIDTH 16.7 % (11.5-14.5); WHITE BLOOD COUNT 7.7 x10^3/uL (4.0-11.0)
[2017-02-08 07:46] LABS: ALBUMIN 3.3 g/dL (3.4-5.0); CALCIUM 9.1 mg/dL (8.5-10.1); CREATININE 0.9 mg/dL (0.7-1.3); GFR 85.2; POTASSIUM 4.3 mmol/L (3.5-5.1); TOTAL BILIRUBIN 0.5 mg/dL (0.2-1.0); TOTAL PROTEIN 6.7 g/dL (6.4-8.2)
[2017-02-08] MEDS: NPH HUMAN INSULIN ISOPHANE SQ SCH (08:00)
[2017-02-08] MEDS: INSULIN ASPART 300 UNITS/3 ML INSULN.PEN SQ SCH ×2 (08:07→12:40)
[2017-02-08] MEDS: POLYMYXIN/TRIMETHOPRIM OPHTH SOLUTION 10ML BOTTLE. OU SCH (09:00)
[2017-02-08] MEDS: DEXAMETHASONE 0.1% OPHTH SOLUTION 5ML BOTTLE. OU SCH (09:10)
[2017-02-08] MEDS: FUROSEMIDE 40 MG/4 ML VIAL IVP SCH (09:11)
[2017-02-08] MEDS: DOXYCYCLINE HYCLATE 100 MG TABLET PO SCH (09:12)
[2017-02-08] MEDS: LOSARTAN 50 MG TABLET. PO SCH (09:12)
[2017-02-08] MEDS: ASPIRIN 325 MG TABLET PO SCH (09:12)
[2017-02-08] MEDS: MAGNESIUM CHLORIDE ER 64 MG TABLET.ER PO SCH (09:12)
[2017-02-08] MEDS: LACTOBACILLUS RHAMNOSUS GG 1 CAPSULE. PO SCH (09:12)
[2017-02-08] MEDS: FENOFIBRATE NANOCRYSTALLIZED 145 MG TABLET PO SCH (09:13)
[2017-02-08] MEDS: hydrALAZINE 25 MG TABLET PO SCH ×2 (09:13→13:26)
[2017-02-08] MEDS: CARVEDILOL 12.5 MG TABLET PO SCH ×2 (09:13→13:27)
[2017-02-08] MEDS: amLODIPine BESYLATE 10 MG TABLET PO SCH (09:13)
[2017-02-08] MEDS: metFORMIN 500 MG TABLET PO SCH (09:13)
[2017-02-08] MEDS: POTASSIUM CHLORIDE 10 MEQ TABLET.ER. PO SCH (09:13)
[2017-02-08] MEDS: ENOXAPARIN 40 MG/0.4 ML DISP.SYRIN. SQ SCH (09:14)
[2017-02-08] MEDS ORDERED: PRED-220 PO (09:36)
[2017-02-08] MEDS ORDERED: CEFU250S PO (09:52)
[2017-02-08] MEDS: HYDROcodone/APAP 7.5/325MG 1 TAB TABLET PO PRN (10:48)
[2017-02-08] MEDS: diphenhydrAMINE HCL 25 MG CAPSULE PO PRN (10:48)
[2017-02-08] MEDS ORDERED: APIX5TAB3 PO ×2 (11:17→11:20)
[2017-02-08 12:23] VITALS: BP 131/62
[2017-02-08 13:27] VITALS: BP 131/62
--- NOTE | 2017-02-08 13:32 | PDOC ---
SUBJECTIVE Subjective: Mr. Trejo is doing reasonably well this morning. He reports that his breathing has improved considerably, but may not be completely back to baseline. He denies any symptoms of chest pains. He has not had any significant palpitations, lightheadedness, or syncope. Nursing staff has noted low a heart rates while sleep, heart rates in the morning are bradycardic but stable. The patient is asymptomatic with this. He has no other particular complaints this morning. Exam Constitutional: Denies fever or chills Eyes: Denies change in visual acuity HENT: Denies nasal congestion or sore throat Respiratory: Denies cough or shortness of breath Cardiovascular: Denies chest pain or edema GI: Denies abdominal pain, nausea, vomiting, bloody stools or diarrhea : Denies dysuria Musculoskeletal: Denies back pain or joint pain Integument: Denies rash Neurologic: Denies headache, focal weakness or sensory changes Endocrine: Denies polyuria or polydipsia Lymphatic: Denies swollen glands Psychiatric: Denies depression or anxiety OBJECTIVE Vital Signs Vital Signs Date Time Temp Pulse Resp B/P (MAP) Pulse Ox O2 Delivery O2 Flow Rate FiO2 02/08/17 12:23 97.5 56 20 131/62 (85) 94 Nasal Cannula 2.5 Physical Exam Constitutional: Well developed, well nourished, no acute distress, non-toxic appearance. HENT: Normocephalic, atraumatic, bilateral external ears normal, oropharynx moist, no oral exudates, nose normal. Eyes: GAY, EOMI, conjunctiva normal, no discharge. Neck: Normal range of motion, no tenderness, supple, no stridor. Cardiovascular: Irregularly irregular, variable S1, no murmurs, rubs, or gallops. Thorax and Lungs: NOrmal respiration. Normal chest expansion. Normal to percuss. Equal breath sounds. No crackles. No wheeze. Abdomen: Bowel sounds normal, soft, no tenderness, no masses, no pulsatile masses. Skin: Warm, dry, no erythema, no rash. Back: No tenderness, no CVA tenderness. Extremities: Intact distal pulses, no tenderness, no cyanosis, no clubbing, ROM intact, no edema. Neurologic: Alert and oriented X 3, normal motor function, normal sensory function, no focal deficits noted. Psychologic: Affect normal, judgement normal, mood normal. Lab Laboratory Tests Test 02/07/17 16:38 02/07/17 19:46 02/08/17 07:15 02/08/17 07:26 Glucose (Fingerstick) 103 mg/dL (70-99) H 88 mg/dL (70-99) 203 mg/dL (70-99) H White Blood Count 7.7 x10^3/uL (4.0-11.0) Red Blood Count 3.94 x10^6/uL (4.30-5.70) L Hemoglobin 10.4 g/dL (13.0-17.5) L Hematocrit 32.1 % (39.0-53.0) L Mean Corpuscular Volume 81 fL (79-100) Mean Corpuscular Hemoglobin 26 pg (25-35) Mean Corpuscular Hemoglobin Concent 32 g/dL (31-37) Red Cell Distribution Width 16.7 % (11.5-14.5) H Platelet Count 136 x10^3/uL (140-400) L Neutrophils (%) (Auto) 68 % (31-73) Lymphocytes (%) (Auto) 14 % (24-48) L Monocytes (%) (Auto) 12 % (0-9) H Eosinophils (%) (Auto) 6 % (0-3) H Basophils (%) (Auto) 0 % (0-3) Neutrophils # (Auto) 5.2 x10^3uL (1.8-7.7) Lymphocytes # (Auto) 1.1 x10^3/uL (1.0-4.8) Monocytes # (Auto) 0.9 x10^3/uL (0.0-1.1) Eosinophils # (Auto) 0.5 x10^3/uL (0.0-0.7) Basophils # (Auto) 0.0 x10^3/uL (0.0-0.2) Sodium Level 136 mmol/L (136-145) Potassium Level 4.3 mmol/L (3.5-5.1) Chloride Level 97 mmol/L (98-107) L Carbon Dioxide Level 35 mmol/L (21-32) H Anion Gap 4 (6-14) L Blood Urea Nitrogen 17 mg/dL (8-26) Creatinine 0.9 mg/dL (0.7-1.3) Estimated GFR (Cockcroft-Gault) 85.2 BUN/Creatinine Ratio 19 (6-20) Glucose Level 211 mg/dL (70-99) H Calcium Level 9.1 mg/dL (8.5-10.1) Total Bilirubin 0.5 mg/dL (0.2-1.0) Aspartate Amino Transferase (AST) 29 U/L (15-37) Alanine Aminotransferase (ALT) 25 U/L (16-63) Alkaline Phosphatase 72 U/L (46-116) Total Protein 6.7 g/dL (6.4-8.2) Albumin 3.3 g/dL (3.4-5.0) L Albumin/Globulin Ratio 1.0 (1.0-1.7) Test 02/08/17 12:00 Glucose (Fingerstick) 166 mg/dL (70-99) H MEDICATIONS Medications Current Medications Medications (Trade) Dose Ordered Sig/Leeanna Start Time Stop Time Status Last Admin Dose Admin Acetaminophen (Tylenol) 325 mg PRN Q6HRS PRN 02/04/17 18:15 Acetaminophen/ Hydrocodone Bitart (Lortab 7.5/325) 2 tab PRN Q6HRS PRN 02/05/17 10:45 02/08/17 10:48 2 TAB Albuterol Sulfate (Ventolin Hfa) 2 puff PRN QID PRN 02/04/17 18:15 02/04/17 20:24 DC Albuterol Sulfate (Ventolin) 2.5 mg PRN Q6HRS PRN 02/04/17 20:30 02/08/17 05:51 2.5 MG Albuterol/ Ipratropium (Duoneb) 3 ml RTQID 02/04/17 20:00 02/04/17 23:36 DC Amlodipine Besylate (Norvasc) 10 mg DAILY 02/05/17 09:00 02/08/17 09:13 10 MG Artificial Tears (Artificial Tears) 1 drop PRN Q4HRS PRN 02/07/17 20:02 Aspirin (Venita Aspirin) 325 mg DAILY 02/05/17 09:00 02/08/17 09:12 325 MG Atorvastatin Calcium (Lipitor) 80 mg QHS 02/04/17 21:00 02/07/17 20:03 80 MG Aztreonam 1 gm/ Sodium Chloride 50 ml @ 100 mls/hr Q6HRS 02/05/17 00:00 02/08/17 06:11 100 MLS/HR Bupropion HCl (Wellbutrin Xl) 150 mg DAILY 02/05/17 09:00 02/05/17 09:00 DC Carvedilol (Coreg) 25 mg TID 02/06/17 14:00 02/08/17 09:13 25 MG Clonidine HCl (Catapres Tts-3) 1 patch WEEKLY 02/11/17 09:00 02/11/17 09:00 DC Dexamethasone (Maxidex) 1 drop BID 02/05/17 21:00 02/08/17 09:10 1 DROP Diphenhydramine HCl (Benadryl) 25 mg PRN Q6HRS PRN 02/05/17 13:00 02/08/17 10:48 25 MG Doxycycline Hyclate (Vibra-Tab) 100 mg BID 02/05/17 09:00 02/08/17 09:12 100 MG Enoxaparin Sodium (Lovenox) 40 mg Q12H 02/04/17 20:00 02/08/17 09:14 40 MG Famotidine (Pepcid) 20 mg QHS 02/04/17 21:00 02/07/17 20:01 20 MG Fenofibrate (Tricor) 145 mg DAILY 02/05/17 09:00 02/08/17 09:13 145 MG Fentanyl Citrate (Fentanyl 2ml Vial) 75 mcg PRN Q4HRS PRN 02/04/17 17:00 Fluticasone Propionate (Flonase) 2 spray DAILY 02/07/17 19:59 02/08/17 09:09 2 SPRAY Furosemide (Lasix) 40 mg BID 02/05/17 15:00 02/08/17 09:11 40 MG Hydralazine HCl (Apresoline) 25 mg [id number] 02/04/17 21:00 02/08/17 09:13 25 MG Hydrochlorothiazide (Hydrodiuril) 25 mg DAILY 02/05/17 09:00 02/05/17 09:22 DC Insulin Aspart (NovoLOG) 38 units [id number] 02/07/17 20:00 02/08/17 12:40 27 UNITS Lactobacillus Rhamnosus (Culturelle) 1 cap BID 02/06/17 09:30 02/08/17 09:12 1 CAP Levofloxacin/ Dextrose 150 ml @ 150 mls/hr 1X ONCE 02/04/17 18:30 02/04/17 19:29 DC 02/04/17 20:29 150 MLS/HR Levothyroxine Sodium (Synthroid) 100 mcg DAILY07 02/05/17 07:00 02/08/17 06:11 100 MCG Losartan Potassium (Cozaar) 100 mg DAILY 02/05/17 09:00 02/08/17 09:12 100 MG Magnesium Chloride (Mag Delay) 64 mg DAILY 02/05/17 09:00 02/08/17 09:12 64 MG Metaxalone (Skelaxin) 800 mg PRN TID PRN 02/04/17 18:15 Metformin HCl (Glucophage) 500 mg BIDWMEALS 02/05/17 08:00 02/08/17 09:13 500 MG Non-Formulary Medication 88 unit HS 02/04/17 21:00 02/04/17 21:00 DC Ondansetron HCl (Zofran Odt) 4 mg PRN Q8HRS PRN 02/04/17 18:15 Ondansetron HCl (Zofran) 4 mg PRN Q4HRS PRN 02/04/17 17:00 02/05/17 16:59 DC Piperacillin Sod/ Tazobactam Sod (Zosyn) 3.375 gm STK-MED ONCE 02/04/17 16:54 02/04/17 16:55 DC Piperacillin Sod/ Tazobactam Sod 3.375 gm/Sodium Chloride 50 ml @ 100 mls/hr 1X ONCE 02/04/17 16:45 02/04/17 17:14 DC 02/04/17 17:14 100 MLS/HR Polymyxin/ Trimethoprim Sulfate (Polytrim) 1 drop BID 02/05/17 21:00 02/07/17 20:01 1 DROP Potassium Chloride (Klor-Con) 10 meq [id number] 02/05/17 08:00 02/08/17 09:13 10 MEQ Sodium Chloride 50 ml @ As Directed STK-MED ONCE 02/04/17 16:54 02/04/17 16:55 DC Tobramycin Sulfate (Tobrex Oph Soln) 1 drop PRN QID PRN 02/05/17 17:30 02/06/17 22:33 1 DROP PLAN Plan 1. New onset Atrial fibrillation 2. Acute CHF, diastolic, improved 3. HFpEF 4. COPD exacerbation 5. Essential hypertension 6. Hyperlipidemia 7. Obesity 8. HAIDER 9. Bradycardia, asymptomatic Mr. Trejo is doing reasonably well this morning. He denies any symptoms concerning for angina. He reports that his breathing continues to improve. On examination, the patient does appear to be more euvolemic. He appears to be diuresing appropriately on IV Lasix. I agree with management of underlying COPD exacerbation as well. Overnight, the patient was noted to have runs of some sinus bradycardia. This was in the setting of him being asleep. During the day, the heart rates are relatively low, but stable. With the patient's underlying obstructive sleep apnea, as well as his beta-cece regimen, this has been a chronic issue for the patient. At this point in time, however, he is asymptomatic, and appears to be tolerating his medications well. I think it would be reasonable to continue beta-cece therapy in the time being. Interestingly, the patient was noted to be in atrial fibrillation earlier today. This is a new diagnosis for the patient. His rates, as noted above, are controlled, actually on the low side. Once again, I agree with continuing his current beta-cece regimen. In addition, I will start the patient on chronic anticoagulation with Eliquis 5 mg twice a day. The patient did undergo a recent noninvasive cardiovascular workup in our office, and this was noted to be unremarkable. I will ultimately have the patient follow up with us in the office in the coming week for further evaluation and management of his atrial fibrillation. It may be reasonable for the patient to undergo a elective DC cardioversion in the near future. We will continue to follow along. Please call with any further questions. AMEYA MONTES DE OCA MD Feb 08, 2017 13:32
--- NOTE | 2017-02-08 19:51 | DS ---
DATE OF DISCHARGE: 02/08/2017 HOSPITAL COURSE: A 61-year-old male in with acute exacerbation of COPD. The patient had some respiratory distress, seen initially in the Emergency Room. The patient otherwise made good progress overall, given aggressive pulmonary toilet, possibly acute on top of chronic diastolic heart failure. The patient otherwise made good progress during the rest of his hospitalization and he was discharged home. IMPRESSION: Pneumonia of unspecified etiology, community acquired acute on top of chronic diastolic heart failure, morbid obesity, type 2 diabetes, hypercholesterolemia, anemia of chronic disease, mild protein malnutrition. The patient will be discharged home. See MRAD. Decreased activity. Continue home medications as noted in MRAD. Followup in 7-10 days. Diabetic diet. Also he is to follow up with his lead etl developer. He has been seen by Dr. Bertrand here as well. ROSEANN OLIVIER MD DR: CAIO/erik JOB#: [id number] / [id number]
[2017-02-11] MEDS ORDERED: cloNIDine TTS-3 1 PATCH PATCH TD SCH (09:00)
== END 2017-02-08 15:22 | disposition home health service (06) | DRG 291 ==
LOC: ER 15:25 → ICU 17:37 → 1 SOUTH 02-06 15:12
PROVIDERS: ADMIT Family Medicine; ATTEND Family Medicine
PROC: 5A09357 Assistance with Respiratory Ventilation, Less than 24 Consecutive Hours, Continuous Positive Airway Pressure (ICD-10-PCS; principal; 2017-02-04)
PROC: 5A09357 Assistance with Respiratory Ventilation, Less than 24 Consecutive Hours, Continuous Positive Airway Pressure (ICD-10-PCS; 2017-02-05)
PROC: 5A09357 Assistance with Respiratory Ventilation, Less than 24 Consecutive Hours, Continuous Positive Airway Pressure (ICD-10-PCS; 2017-02-07)
PROC: 5A09357 Assistance with Respiratory Ventilation, Less than 24 Consecutive Hours, Continuous Positive Airway Pressure (ICD-10-PCS; 2017-02-08)
DX: I11.0 Hypertensive heart disease with heart failure (principal); J96.00 Acute respiratory failure, unspecified whether with hypoxia or hypercapnia; J18.9 Pneumonia, unspecified organism; E11.51 Type 2 diabetes mellitus with diabetic peripheral angiopathy without gangrene; Z79.01 Long term (current) use of anticoagulants; I48.91 Unspecified atrial fibrillation; E44.1 Mild protein-calorie malnutrition; Z68.41 Body mass index [BMI] 40.0-44.9, adult; J44.0 Chronic obstructive pulmonary disease with (acute) lower respiratory infection; J44.1 Chronic obstructive pulmonary disease with (acute) exacerbation; I50.33 Acute on chronic diastolic (congestive) heart failure; D63.8 Anemia in other chronic diseases classified elsewhere; E03.9 Hypothyroidism, unspecified; E66.01 Morbid (severe) obesity due to excess calories; E78.2 Mixed hyperlipidemia; I25.10 Atherosclerotic heart disease of native coronary artery without angina pectoris; K21.9 Gastro-esophageal reflux disease without esophagitis; M17.0 Bilateral primary osteoarthritis of knee; F17.201 Nicotine dependence, unspecified, in remission; G47.33 Obstructive sleep apnea (adult) (pediatric); M19.90 Unspecified osteoarthritis, unspecified site; E78.00 Pure hypercholesterolemia, unspecified; E78.1 Pure hyperglyceridemia; Z90.49 Acquired absence of other specified parts of digestive tract; Z95.5 Presence of coronary angioplasty implant and graft; Z87.81 Personal history of (healed) traumatic fracture; Z98.49 Cataract extraction status, unspecified eye; Z95.1 Presence of aortocoronary bypass graft; Z86.718 Personal history of other venous thrombosis and embolism; Z87.01 Personal history of pneumonia (recurrent); Z86.14 Personal history of Methicillin resistant Staphylococcus aureus infection; Z83.79 Family history of other diseases of the digestive system; Z82.5 Family history of asthma and other chronic lower respiratory diseases; Z88.6 Allergy status to analgesic agent; Z88.1 Allergy status to other antibiotic agents; Z91.013 Allergy to seafood; Z88.8 Allergy status to other drugs, medicaments and biological substances; Z91.048 Other nonmedicinal substance allergy status
CPT/HCPCS: 36415; 71010; 71020; 80048; 80053; 80061; 82803; 82947; 83605; 83690; 83735; 83880; 84484; 85025; 87040; 87641; 93005; 94640; 94760; 96374; J1650; J1815; J1940; J1956; J2543; J3490; J7613; J7620; Q0163; 99291-25

== ENCOUNTER 2017-12-14 12:03 | Observation (INO) | payer BC ==
[~2017-12-14] VITALS: Ht 190.5 cm; Wt 149.7 kg
[~2017-12-14 12:03] MED LIST changes: -AMLO10TA2 PO; +AMLO10TA6 PO; +APIX5TAB3 PO; +CEFU250S PO; -IPRA3AMP NEB; +IPRA3AMP29 NEB; +METF500T16 PO; -METF500T4 PO; +SODI104S NS
[2017-12-14 15:01] LABS: BASO # 0.1 x10^3/uL (0.0-0.2); BASO % 1 % (0-3); EOS # 0.2 x10^3/uL (0.0-0.7); EOS % 2 % (0-3); HEMOGLOBIN 11.2 g/dL (13.0-17.5); LYMPH # 1.5 x10^3/uL (1.0-4.8); LYMPH % 15 % (24-48); MEAN CORPUSCULAR HEMOGLOBIN 26 pg (25-35); MEAN CORPUSCULAR HGB CONC 32 g/dL (31-37); MEAN CORPUSCULAR VOLUME 81 fL (79-100); MONO % 10 % (0-9); NEUT # 7.7 x10^3uL (1.8-7.7); NEUT % 73 % (31-73); PLATELET COUNT 184 x10^3/uL (140-400); RED BLOOD COUNT 4.32 x10^6/uL (4.30-5.70); RED CELL DISTRIBUTION WIDTH 16.5 % (11.5-14.5); WHITE BLOOD COUNT 10.4 x10^3/uL (4.0-11.0)
[2017-12-14 15:09] LABS: CALCIUM 9.7 mg/dL (8.5-10.1); CREATININE 1.2 mg/dL (0.7-1.3); POTASSIUM 4.2 mmol/L (3.5-5.1)
[2017-12-14 15:39] LABS: AMORPHOUS SEDIMENT,UR PRESENT /HPF; BACTERIA,URINE FEW /HPF (0-FEW); BILIRUBIN,URINE NEG (NEG); CLARITY,URINE CLEAR; COLOR,URINE STRAW; GLUCOSE,URINE NEG (NEG); NITRITE,URINE NEG (NEG); RBC,URINE 0 /HPF (0-2); SQUAMOUS EPITHELIAL CELL,UR FEW /LPF; UROBILINOGEN,URINE 0.2 mg/dL (0.2 mg/dL); WBC,URINE 0 /HPF (0-4)
--- NOTE | 2017-12-14 15:58 | RAD ---
CT HEAD WO CONTRAST History: Mental status change Comparison: None. Technique: Noncontrast CT imaging was performed of the head. Exposure: One or more of the following individualized dose reduction techniques were utilized for this examination: 1. Automated exposure control 2. Adjustment of the mA and/or kV according to patient size 3. Use of iterative reconstruction technique. Findings: There is mild motion. No acute extra-axial or parenchymal hemorrhage is identified. There is no significant intra-axial mass effect, midline shift, or extra-axial fluid collection. The eddy-white differentiation of the major vascular territories is preserved. The ventricles, sulci, and cisterns are within normal limits in size and configuration. The mastoid air cells and the visualized paranasal sinuses are aerated. No acute calvarial abnormality is identified. Impression: 1. No acute intracranial abnormality is identified. If there is concern for evolving or acute ischemia, followup CT or MRI could be beneficial. Electronically signed by: Maxwell Workman MD (12/14/2017 3:54 PM) [facility]
[2017-12-14] MEDS ORDERED: ACETAMINOPHEN 325 MG TABLET PO PRN (16:00)
[2017-12-14] MEDS ORDERED: SODIUM CHLORIDE NS PRN (16:00)
[2017-12-14] MEDS ORDERED: PEG OP SCH (16:00)
[2017-12-14] MEDS ORDERED: PROPYLENE GLYCOL OP SCH (16:00)
[2017-12-14] MEDS ORDERED: HYDROcodone/APAP 7.5/325MG 1 TAB TABLET PO PRN (16:00)
[2017-12-14] MEDS ORDERED: IPRATRPIUM/ALBUTEROL 0.5/2.5MG 3 ML NEBU. NEB SCH (16:00)
[2017-12-14] MEDS ORDERED: ONDANSETRON 4MG ODT 4TABLET STARTPACK. PO PRN (16:00)
[2017-12-14] MEDS ORDERED: METAXALONE 800 MG PO PRN (16:00)
[2017-12-14] MEDS ORDERED: [UNRECOGNIZED DRUG - OTHER] NS PRN (16:00)
[2017-12-14] MEDS ORDERED: diphenhydrAMINE HCL 25 MG CAPSULE PO PRN (16:00)
[2017-12-14] MEDS ORDERED: MOMETASONE FUROATE NS PRN (16:00)
[2017-12-14] MEDS ORDERED: INSULIN LISPRO 300 UNITS/3 ML INSULN.PEN. SQ SCH (16:30)
[2017-12-14] MEDS ORDERED: IPRATRPIUM/ALBUTEROL 0.5/2.5MG 3 ML NEBU. ONE (16:51)
[2017-12-14] MEDS ORDERED: HYDRALAZINE HCL 25 MG PO SCH (17:00)
[2017-12-14 19:05] VITALS: BP 157/70
[2017-12-14] MEDS ORDERED: META800T PO (19:13)
[2017-12-14] MEDS ORDERED: IRBE300T3 PO (19:13)
[2017-12-14] MEDS ORDERED: MULT1TAB49 PO (19:13)
[2017-12-14] MEDS ORDERED: ASPI-630 PO (19:13)
[2017-12-14] MEDS ORDERED: CARV3.12 PO (19:13)
[2017-12-14] MEDS ORDERED: APIX5TAB3 PO (19:22)
[2017-12-14] MEDS ORDERED: ACET325C5 PO (19:22)
[2017-12-14] MEDS ORDERED: METF10007 PO (19:22)
[2017-12-14] MEDS ORDERED: DOCU100C28 PO (19:22)
[2017-12-14] MEDS ORDERED: HYDR-2868 PO (19:22)
[2017-12-14] MEDS ORDERED: HYDR-2762 PO (19:22)
[2017-12-14] MEDS ORDERED: MAGN400C PO (19:22)
[2017-12-14] MEDS ORDERED: LEVO125T PO (19:22)
[2017-12-14] MEDS ORDERED: GUAI600T47 PO (19:22)
[2017-12-14] MEDS ORDERED: POTA10TA10 PO (19:46)
[2017-12-14] MEDS ORDERED: RANI300C PO (19:47)
[2017-12-14] MEDS ORDERED: FURO80TA3 PO (19:48)
[2017-12-14] MEDS ORDERED: NPH,100V SQ ×2 (19:50→19:51)
[2017-12-14] MEDS ORDERED: FENO145T30 PO (19:50)
[2017-12-14] MEDS ORDERED: CEFUROXIME AXETIL 250 MG PO SCH (21:00)
[2017-12-14] MEDS ORDERED: ANTI-COAG MONITOR BY PHARMACY. MC PRN (21:00)
[2017-12-14] MEDS ORDERED: NON FORMULARY ITEM (Apixaban (Eliquis) 5 MG) PO SCH (21:00)
[2017-12-14] MEDS ORDERED: POLYMYXIN/TRIMETHOPRIM OPHTH SOLUTION 10ML BOTTLE. OU SCH (21:00)
[2017-12-14] MEDS ORDERED: NON FORMULARY ITEM (Carvedilol (Coreg) 1 TAB) PO SCH (21:00)
[2017-12-14 21:22] LABS: AMPHETAMINE/METHAMPHETAMINE NEG (NEG); BARBITURATES NEG (NEG); BENZODIAZEPINES NEG (NEG); CANNABINOIDS NEG (NEG); COCAINE NEG (NEG); METHADONE NEG (NEG); OPIATES POS (NEG); PHENCYCLIDINE NEG (NEG)
[2017-12-14] MEDS ORDERED: FENOFIBRATE NANOCRYSTALLIZED 145 MG TABLET PO SCH (21:30)
[2017-12-14] MEDS ORDERED: INSULIN GLARGINE 300 UNITS/3 ML INSULN.PEN. SQ SCH (21:30)
[2017-12-14] MEDS ORDERED: FUROSEMIDE 80 MG TABLET PO SCH (21:30)
[2017-12-14] MEDS ORDERED: POTASSIUM CHLORIDE 20 MEQ TABLET.ER. PO SCH (21:30)
[2017-12-14] MEDS ORDERED: FAMOTIDINE 20 MG TABLET PO SCH (21:30)
[2017-12-14] MEDS: METAXALONE 800 MG TABLET PO SCH (21:30)
[2017-12-14] MEDS: ACETAMINOPHEN 500 MG TABLET PO SCH (21:56)
[2017-12-14] MEDS: DOCUSATE SODIUM 100 MG CAPSULE PO SCH (21:56)
[2017-12-14] MEDS: APIXABAN 5 MG TABLET. PO SCH (21:56)
[2017-12-14] MEDS: hydrALAZINE 25 MG TABLET PO SCH (21:57)
[2017-12-14] MEDS: HYDROcodone/APAP 7.5/325MG 1 TAB TABLET PO PRN (22:42)
[2017-12-14 23:00] VITALS: BP 172/70
[2017-12-15] MEDS ORDERED: INSULIN GLARGINE 300 UNITS/3 ML INSULN.PEN. SQ SCH (02:00)
[2017-12-15 03:00] VITALS: BP 175/68
[2017-12-15] MEDS: IPRATRPIUM/ALBUTEROL 0.5/2.5MG 3 ML NEBU. NEB SCH ×2 (05:46→09:54)
[2017-12-15] MEDS ORDERED: LEVOTHYROXINE 100 MCG TABLET PO SCH (07:00)
[2017-12-15] MEDS ORDERED: LEVOTHYROXINE 125 MCG TABLET PO SCH (07:00)
[2017-12-15 07:43] LABS: ALBUMIN 3.6 g/dL (3.4-5.0); ALBUMIN/GLOBULIN RATIO 1.1 (1.0-1.7); CALCIUM 9.2 mg/dL (8.5-10.1); CREATININE 1.2 mg/dL (0.7-1.3); POTASSIUM 3.9 mmol/L (3.5-5.1); TOTAL BILIRUBIN 0.3 mg/dL (0.2-1.0); TOTAL PROTEIN 6.9 g/dL (6.4-8.2)
[2017-12-15] MEDS ORDERED: CARVEDILOL 3.125 MG TABLET PO SCH (08:00)
[2017-12-15] MEDS ORDERED: NPH HUMAN INSULIN ISOPHANE SQ SCH (08:00)
[2017-12-15] MEDS ORDERED: metFORMIN 500 MG TABLET PO SCH (08:00)
--- NOTE | 2017-12-15 08:30 | RAD ---
PA and lateral chest HISTORY: Short of air PA and lateral views were taken of the chest. The heart is enlarged without change from old studies. There has been previous surgery. There is pleural thickening on the right without change. No new infiltrates are noted. IMPRESSION: 1. Right pleural thickening. 2. No new infiltrates. Electronically signed by: Arya Redmond MD (12/15/2017 8:26 AM) [facility]
[2017-12-15] MEDS: DOCUSATE SODIUM 100 MG CAPSULE PO SCH (08:34)
[2017-12-15] MEDS: hydrALAZINE 25 MG TABLET PO SCH (08:36)
[2017-12-15] MEDS: APIXABAN 5 MG TABLET. PO SCH (08:37)
[2017-12-15] MEDS ORDERED: NON FORMULARY ITEM (Ranitidine Hcl 300 MG) PO SCH (09:00)
[2017-12-15] MEDS ORDERED: MULTIVITAMIN with MINERAL TABLET. PO SCH (09:00)
[2017-12-15] MEDS ORDERED: IRBESARTAN 300 MG PO SCH (09:00)
[2017-12-15] MEDS ORDERED: NON FORMULARY ITEM (Rosuvastatin Calcium (Crestor) 40 MG) PO SCH (09:00)
[2017-12-15] MEDS ORDERED: FENOFIBRATE NANOCRYSTALLIZED PO SCH (09:00)
[2017-12-15] MEDS ORDERED: LOSARTAN 50 MG TABLET. PO SCH (09:00)
[2017-12-15] MEDS ORDERED: ASPIRIN 81 MG TAB.CHEW PO SCH (09:00)
[2017-12-15] MEDS ORDERED: MAGNESIUM OXIDE 400 MG TABLET PO SCH (09:00)
[2017-12-15] MEDS ORDERED: FUROSEMIDE 80 MG PO SCH (09:00)
[2017-12-15] MEDS: ACETAMINOPHEN 500 MG TABLET PO SCH (09:00)
[2017-12-15] MEDS ORDERED: POTASSIUM CHLORIDE PO SCH (09:00)
[2017-12-15] MEDS ORDERED: AMLODIPINE BESYLATE PO SCH (09:00)
[2017-12-15] MEDS ORDERED: predniSONE 10 MG TABLET PO SCH (09:00)
[2017-12-15] MEDS ORDERED: NON FORMULARY ITEM (Magnesium Chloride (Mag Delay) 64 MG) PO SCH (09:00)
[2017-12-15] MEDS: METAXALONE 800 MG TABLET PO SCH (09:00)
[2017-12-15] MEDS: HYDROcodone/APAP 7.5/325MG 1 TAB TABLET PO PRN (09:10)
[2017-12-15 11:10] VITALS: BP 191/50
[2017-12-15] MEDS ORDERED: hydrALAZINE 25 MG TABLET PO SCH (14:00)
[2017-12-15] MEDS ORDERED: CARVEDILOL 12.5 MG TABLET PO SCH (17:00)
[2017-12-15 22:07] LABS: HEMOGLOBIN A1C 6.8 % (4.8-5.6)
== END 2017-12-15 13:00 | disposition home or self-care (01) ==
LOC: 1 SOUTH 12:03 → INTOOBSV 12:03 → 1 SOUTH 14:10
PROVIDERS: ADMIT Family Medicine; ATTEND Family Medicine
DX: R41.82 Altered mental status, unspecified (principal); E66.01 Morbid (severe) obesity due to excess calories; E11.9 Type 2 diabetes mellitus without complications; G93.40 Encephalopathy, unspecified; F17.200 Nicotine dependence, unspecified, uncomplicated; J44.9 Chronic obstructive pulmonary disease, unspecified; I48.91 Unspecified atrial fibrillation
CPT/HCPCS: 36415; 70450; 71046; 80048; 80053; 80307; 81001; 82140; 82550; 82607; 82947; 83036; 83605; 84443; 85025; 94640; G0378; G0379; J7620; G0479

== ENCOUNTER 2019-02-12 20:11 | Inpatient (IN) | payer MEDICARE, BC ==
[~2019-02-12] VITALS: Ht 190.5 cm; Wt 137.0 kg
[~2019-02-12 20:11] MED LIST changes: +ACET325C6 PO; +ALBU2.5V8 IH; -ALBU8.5H8 IH; -AMLO10TA6 PO; +AMLO10TA8 PO; +ASPI-630 PO; +CARV3.12 PO; +DOCU100C28 PO; +FENO145T30 PO; +FURO80TA3 PO; +GUAI600T47 PO; +HYDR-2145 PO; +HYDR-2765 PO; -HYDR1TAB14 PO; +HYDR1TAB15 PO; -HYDR25TA9 PO; +IRBE300T3 PO; +LEVO125T PO; +MAGN400C PO; +METF10007 PO; +MULT1TAB49 PO; +POTA10TA10 PO; +POTA10TA12 PO; -POTA10TA31 PO; +RANI300C PO
--- NOTE | 2019-02-12 20:24 | PHYS DOC ---
Past History Past Medical History: Asthma, Bronchitis, CAD, CHF, COPD, Diabetes, DVT, GERD, High Cholesterol, Hypertension, Hypothyroid, Pneumonia, URI, Other Past Surgical History: Appendectomy, Tonsillectomy, Other Smoking: Cigarettes, Quit Greater Than 1 Year Alcohol Use: Sober Drug Use: None Adult General Chief Complaint Chief Complaint: shortness of breath HPI HPI 63-year-old male presents via EMS with shortness of breath. The patient wears 2 L of oxygen at baseline at all times. He was continuing to have shortness of breath at home and called EMS. When they arrived he is oxygen saturations in the 70s. They put him on CPAP and they went up to high 90s. The patient has known COPD. He is just not doing well at home. He tells me he still feels more short of breath for a couple of days, but much worse today. The. The patient is claustrophobic and does not like to comply with mask therapy. He has been on BiPAP in the past. Denies fever or chills. Review of Systems Review of Systems Constitutional: Denies fever or chills [] Eyes: Denies change in visual acuity, redness, or eye pain [] HENT: Nasal congestion [] Respiratory: Cough with shortness of breath [] Cardiovascular: No additional information not addressed in HPI [] GI: Denies abdominal pain, nausea, vomiting, bloody stools or diarrhea [] : Denies dysuria or hematuria [] Musculoskeletal: Denies back pain or joint pain [] Integument: Denies rash or skin lesions [] Neurologic: Denies headache, focal weakness or sensory changes [] Endocrine: Denies polyuria or polydipsia [] All other systems were reviewed and found to be within normal limits, except as documented in this note. Allergies Allergies Allergies Coded Allergies Type Severity Reaction Last Updated Verified pioglitazone Allergy Severe swelling 03/27/15 Yes erythromycin base Allergy Intermediate rash and hives 03/27/15 Yes influenza virus vaccine, specific Allergy Intermediate SOB 03/27/15 No morphine Allergy Intermediate 12/16/15 Yes shellfish derived Allergy Intermediate SHRIMP-RASH/HIVES 03/27/15 Yes spinach Allergy Intermediate Hives 12/14/15 Yes torsemide Allergy Intermediate 12/16/15 Yes vancomycin Allergy Intermediate red iveth syndrome with IV/sob 03/27/15 Yes wool Allergy Intermediate Hives 12/14/15 Yes Physical Exam Physical Exam Constitutional: Well developed, morbidly obese, well nourished, moderate acute distress, non-toxic appearance. [] HENT: Normocephalic, atraumatic, bilateral external ears normal, oropharynx moist, no oral exudates, nose normal. [] Eyes: PERRLA, EOMI, conjunctiva normal, no discharge. [] Neck: Normal range of motion, no tenderness, supple, no stridor. [] Cardiovascular:Heart rate regular rhythm, no murmur [] Lungs & Thorax: Bilateral breath sounds significantly diminished throughout.[] Abdomen: Bowel sounds normal, soft, no tenderness, no masses, no pulsatile masses. [] Skin: Warm, dry, no erythema, no rash. [] Back: No tenderness, no CVA tenderness. [] Extremities: No tenderness, no cyanosis, no clubbing, ROM intact, no edema. [] Neurologic: Alert and oriented X 3, normal motor function, normal sensory function, no focal deficits noted. [] Psychologic: Affect normal, judgement normal, mood anxious. [] EKG EKG [] Radiology/Procedures Radiology/Procedures [] Course & Med Decision Making Course & Med Decision Making Pertinent Labs and Imaging studies reviewed. (See chart for details) Arrival, the patient was on a nasal cannula during the transfer to bed. His oxygen saturation was in the 70s. We placed him on BiPAP. He was not real happy about it, but he was tolerating it well. We made him as comfortable as we couldn't he did very well on his BiPAP. His initial ABG had a pH of 7.316 CO2 of 57.50-69. We have been able to back down the supplemental oxygen on the BiPAP. The patient's chest x-ray is suggestive of bilateral pulmonary edema as well as a consolidation in the right lung. The patient was just placed on levofloxacin yesterday for a "respiratory infection". He was not told it was pneumonia. I don't believe he had an x-ray at that time. I'm given the patient 40 mg of Lasix. The patient's lactic acid is 2.3. His white count is 13. He has obvious respiratory distress. He meets sepsis criteria. The patient does not appear to be dehydrated clinically and he has obvious overload. I will give him a liter of normal saline, but not the full 30 mg/kg. Patient will get Zosyn and be admitted to the hospital. I spoke with Dr. Larsen and he has accepted the patient for admission. He will go to the ICU. 51 minutes of critical care time was spent on this patient exclusive of other billable procedures. [] Dragon Disclaimer Dragon Disclaimer This electronic medical record was generated, in whole or in part, using a voice recognition dictation system. Departure Departure: Impression: Primary Impression: Pneumonia Additional Impressions: Respiratory failure Acute exacerbation of CHF (congestive heart failure) Disposition: ADMITTED INPATIENT Admitting Physician: Jacobo Larsen Condition: GUARDED Referrals: JACOBO LARSEN MD (PCP) Sepsis Assessment Date and Time of Assessment Date: Feb 12, 2019 Time: 21:00 Vital Signs Vital Signs Vital Signs Date Time Temp Pulse Resp B/P (MAP) Pulse Ox O2 Delivery O2 Flow Rate FiO2 02/12/19 20:11 97.6 100 29 244/115 (158) 79 Room Air Respirations Respiratory Effort: Shortness of air Respiratory Pattern: Tachypnea Cardiovascular Pulse Rhythm: Regular HEART: No rubs, clicks or gallop Lung Sounds Breath Sounds: Coarse Capillary Refill Capillary Refill: Rt Foot < 3 seconds Peripheral Pulse Pulse Location: Monitor Pulse Strength: Normal (2+) Pulse Assessment Method: Monitor Integumentary Skin: Dry Skin Moisture: Clammy Skin Turgor: Normal Skin Color: pallor Fingernail Color: WNL Sepsis Assessment Date and Time of Assessment Date: Feb 12, 2019 Time: 22:13 Fluid Challenge: Is the fluid challenge complet: No IBW Target Volume Used: Yes BMI > 30: Yes Blood Culture TIme: 22:13 Time Antibiotics Given: 22:52 Vital Signs Vital Signs Vital Signs Date Time Temp Pulse Resp B/P (MAP) Pulse Ox O2 Delivery O2 Flow Rate FiO2 02/12/19 20:11 97.6 100 29 244/115 (158) 79 Room Air Temperature Source: Tympanic Respirations Respiratory Effort: Shortness of air Respiratory Pattern: Normal Cardiovascular Pulse Rhythm: Regular Heart: No rubs, clicks or gallop Lung Sounds Breath Sounds: Coarse Capillary Refill Capillary Refill: Rt Hand < 3 seconds Peripheral Pulse Pulse Location: Monitor Pulse Strength: Normal (2+) Pulse Assessment Method: Monitor Integumentary Skin: Warm Skin Moisture: Dry Skin Turgor: Normal Skin Color: no edema Fingernail Color: WNL Problem Qualifiers RENNY HEWITT DO Feb 12, 2019 20:23
[2019-02-12] MEDS ORDERED: methylPREDNISolone SOD SUCC PF 125 MG/2 ML VIAL. IV ONE (20:30)
[2019-02-12] MEDS ORDERED: ALBUTEROL SULFATE 2.5 MG/3 ML NEBU. CONT NEB ONE (20:30)
[2019-02-12 20:44] LABS: BASO # 0.1 x10^3/uL (0.0-0.2); BASO % 0 % (0-3); EOS # 0.3 x10^3/uL (0.0-0.7); EOS % 2 % (0-3); HEMOGLOBIN 12.8 g/dL (13.0-17.5); LYMPH # 1.5 x10^3/uL (1.0-4.8); LYMPH % 12 % (24-48); MEAN CORPUSCULAR HEMOGLOBIN 25 pg (25-35); MEAN CORPUSCULAR HGB CONC 31 g/dL (31-37); MEAN CORPUSCULAR VOLUME 81 fL (79-100); MONO # 1.2 x10^3/uL (0.0-1.1); MONO % 9 % (0-9); NEUT % 77 % (31-73); PLATELET COUNT 213 x10^3/uL (140-400); RED BLOOD COUNT 5.07 x10^6/uL (4.30-5.70); RED CELL DISTRIBUTION WIDTH 16.8 % (11.5-14.5)
[2019-02-12 20:55] LABS: ALBUMIN 3.4 g/dL (3.4-5.0); ALBUMIN/GLOBULIN RATIO 0.8 (1.0-1.7); CALCIUM 8.7 mg/dL (8.5-10.1); CREATININE 0.9 mg/dL (0.7-1.3); GFR 84.7; POTASSIUM 4.2 mmol/L (3.5-5.1); TOTAL BILIRUBIN 0.5 mg/dL (0.2-1.0); TOTAL PROTEIN 7.6 g/dL (6.4-8.2)
[2019-02-12] MEDS ORDERED: FUROSEMIDE 40 MG/4 ML VIAL IVP ONE (22:00)
[2019-02-12 22:17] LABS: BARBITURATES NEG (NEG); BENZODIAZEPINES NEG (NEG); CANNABINOIDS NEG (NEG); COCAINE NEG (NEG); METHADONE NEG (NEG); OPIATES NEG (NEG); PHENCYCLIDINE NEG (NEG)
[2019-02-12 22:21] LABS: AMPHETAMINE/METHAMPHETAMINE NEG (NEG)
[2019-02-12 22:28] LABS: BILIRUBIN,URINE NEG (NEG); CLARITY,URINE CLEAR; COLOR,URINE YELLOW; GLUCOSE,URINE NEG (NEG)
[2019-02-12] MEDS: IV NORMAL SALINE 1,000ML 1,000 ML IV SCH (22:28)
[2019-02-12 22:29] LABS: BACTERIA,URINE 0 /HPF (0-FEW); NITRITE,URINE NEG (NEG); RBC,URINE OCC /HPF (0-2); UROBILINOGEN,URINE 0.2 mg/dL (0.2 mg/dL); WBC,URINE OCC /HPF (0-4)
[2019-02-12] MEDS ORDERED: PIPERACILLIN/TAZOBACTAM 3.375 GM in IV NORMAL SALINE 50ML 50 ML IV ONE (22:30)
[2019-02-12] MEDS ORDERED: ACETAMINOPHEN 325 MG TABLET PO PRN (22:30)
[2019-02-12] MEDS ORDERED: ONDANSETRON PF 4 MG/2 ML VIAL. IV PRN (22:30)
[2019-02-12] MEDS ORDERED: IV NORMAL SALINE 1,000ML 1,000 ML IV ONE (22:30)
[2019-02-12] MEDS ORDERED: PIPERACILLIN/TAZOBACTAM 3.375 GM VIAL IV ONE (22:52)
[2019-02-12] MEDS ORDERED: IV NORMAL SALINE 50ML 50 ML ONE (22:52)
--- NOTE | 2019-02-12 23:30 | RAD ---
CHEST AP ONLY INDICATION: Dyspnea. COMPARISON STUDY: 12/15/2017. FINDINGS: Rotation to the right Lungs: Normal lung volume. Bilateral perihilar and basilar opacities. Indistinct pulmonary vasculature. Pleura: Stable right pleural thickening versus trace effusion. Heart and Mediastinum: Cardiomegaly. IMPRESSION: Bilateral perihilar and basilar opacities, likely edema. Electronically signed by: Maxwell Pinto MD (02/12/2019 11:27 PM) [facility]
[2019-02-13 00:42] VITALS: BP 183/70
[2019-02-13] MEDS: IV NORMAL SALINE 1,000ML 1,000 ML IV SCH (03:28)
[2019-02-13] MEDS ORDERED: ACET-1874 PO (04:20)
[2019-02-13] MEDS ORDERED: GUAI5SYR PO (04:20)
[2019-02-13] MEDS ORDERED: ACET500T33 PO (04:20)
[2019-02-13] MEDS ORDERED: CYCL1DRO EACHEYE (04:20)
[2019-02-13] MEDS ORDERED: FERR-36 PO (04:20)
[2019-02-13] MEDS ORDERED: ROSU40TA22 PO (04:20)
[2019-02-13] MEDS ORDERED: AMLO10TA8 PO (04:20)
[2019-02-13] MEDS ORDERED: CARV6.2541 PO (04:20)
[2019-02-13] MEDS ORDERED: FLUT1BLS3 IH (04:20)
[2019-02-13] MEDS ORDERED: INSU100V SQ (04:31)
[2019-02-13] MEDS ORDERED: IPRATRPIUM/ALBUTEROL 0.5/2.5MG 3 ML NEBU. ONE (05:14)
[2019-02-13] MEDS ORDERED: PIP/TAZO PER PHARMACY MC PRN (05:15)
[2019-02-13] MEDS: IPRATRPIUM/ALBUTEROL 0.5/2.5MG 3 ML NEBU. NEB SCH ×4 (05:37→19:52)
[2019-02-13 06:15] VITALS: BP 174/72
[2019-02-13 06:15] LABS: BGAS PH 7.32 (7.35-7.46)
[2019-02-13] MEDS: PIPERACILLIN/TAZOBACTAM 3.375 GM in IV NORMAL SALINE 50ML 50 ML IV SCH ×4 (06:40→23:36)
[2019-02-13 07:57] LABS: BASO % 0 % (0-3); EOS % 0 % (0-3); HEMATOCRIT 39.2 % (39.0-53.0); HEMOGLOBIN 12.3 g/dL (13.0-17.5); LYMPH # 0.4 x10^3/uL (1.0-4.8); LYMPH % 4 % (24-48); MEAN CORPUSCULAR HEMOGLOBIN 25 pg (25-35); MEAN CORPUSCULAR HGB CONC 32 g/dL (31-37); MEAN CORPUSCULAR VOLUME 80 fL (79-100); MONO # 0.1 x10^3/uL (0.0-1.1); MONO % 1 % (0-9); NEUT # 9.3 x10^3uL (1.8-7.7); NEUT % 95 % (31-73); PLATELET COUNT 178 x10^3/uL (140-400); RED BLOOD COUNT 4.88 x10^6/uL (4.30-5.70); RED CELL DISTRIBUTION WIDTH 16.8 % (11.5-14.5); WHITE BLOOD COUNT 9.8 x10^3/uL (4.0-11.0)
[2019-02-13 08:09] LABS: ALBUMIN 3.3 g/dL (3.4-5.0); ALBUMIN/GLOBULIN RATIO 0.8 (1.0-1.7); CALCIUM 8.7 mg/dL (8.5-10.1); CREATININE 1.2 mg/dL (0.7-1.3); GFR 60.8; POTASSIUM 4.3 mmol/L (3.5-5.1); TOTAL BILIRUBIN 0.6 mg/dL (0.2-1.0); TOTAL PROTEIN 7.5 g/dL (6.4-8.2)
[2019-02-13] MEDS ORDERED: guaiFENesin DM 200MG/20MG 10 ML SYRUP PO PRN (08:30)
[2019-02-13] MEDS ORDERED: NON FORMULARY ITEM (Acetaminophen Er 650 MG) PO PRN (08:30)
[2019-02-13] MEDS ORDERED: ACETAMINOPHEN 500 MG TABLET PO PRN (08:30)
[2019-02-13] MEDS: INSULIN LISPRO 300 UNITS/3 ML VIAL. SQ SCH ×3 (08:58→17:48)
[2019-02-13] MEDS: DOCUSATE SODIUM 100 MG CAPSULE PO SCH ×2 (09:00→21:00)
[2019-02-13] MEDS ORDERED: FUROSEMIDE 40 MG/4 ML VIAL IVP ONE ×2 (09:00→14:00)
[2019-02-13] MEDS: INSULIN GLARGINE SYRINGE. SQ SCH ×2 (09:00→21:49)
[2019-02-13] MEDS: amLODIPine BESYLATE 10 MG TABLET PO SCH (09:02)
[2019-02-13] MEDS: ASPIRIN 81 MG TAB.CHEW PO SCH (09:02)
[2019-02-13] MEDS: hydrALAZINE 25 MG TABLET PO SCH ×3 (09:03→21:44)
[2019-02-13] MEDS: LEVOTHYROXINE 125 MCG TABLET PO SCH (09:03)
[2019-02-13] MEDS: CARVEDILOL 6.25 MG TABLET PO SCH ×2 (09:04→16:34)
[2019-02-13] MEDS: cycloSPORINE 0.05% OPTH 1 DROP DROPERETTE OU SCH ×2 (09:07→21:45)
[2019-02-13] MEDS: APIXABAN 5 MG TABLET. PO SCH ×2 (09:07→21:44)
[2019-02-13] MEDS: FERROUS SULFATE 325 MG TABLET. PO SCH (09:07)
[2019-02-13] MEDS: FAMOTIDINE 20 MG TABLET PO SCH (09:08)
[2019-02-13] MEDS: MULTIVITAMIN with MINERAL TABLET. PO SCH (09:08)
[2019-02-13] MEDS: metFORMIN 500 MG TABLET PO SCH ×2 (09:09→16:32)
[2019-02-13] MEDS: LOSARTAN 50 MG TABLET. PO SCH (09:14)
[2019-02-13 11:04] VITALS: BP 158/65
[2019-02-13] MEDS ORDERED: INSULIN LISPRO 20 UNIT SQ SCH (12:00)
[2019-02-13 13:41] LABS: THYROID STIM HORMONE (TSH) 0.6 uIU/mL (0.358-3.740)
[2019-02-13] MEDS: CYCLOBENZAPRINE 10 MG TABLET. PO SCH ×2 (14:00→21:44)
[2019-02-13] MEDS: HYDROcodone/APAP 7.5/325MG 1 TAB TABLET PO PRN ×2 (14:33→21:53)
[2019-02-13 14:36] VITALS: BP 169/67
--- NOTE | 2019-02-13 15:25 | HP ---
ADMIT DATE: HISTORY OF PRESENT ILLNESS: The patient is a 63-year-old male patient who presented to the Emergency Room via EMS with increasing shortness of breath. The patient wears 2 liters of oxygen at baseline at all times. He was continuing to have shortness of breath at home. When they arrived, his oxygen saturation was only 70%. They put him on CPAP and the oxygen saturation went up to 90s. The patient is known to have COPD. He is just not doing well at home. He has been complaining of shortness of breath for the last couple of days, it has worsened yesterday. The patient is claustrophobic, does not like to comply with masked therapy, has been on BiPAP in the past, but denies any fever or chills. He transpired that he has not been taking his diuretics for the last 4 or 5 days. He was evaluated in the Emergency Room and his lab work showed that he has leukocytosis, white cell count of 13,000. His blood gases showed a pH of 7.32, pCO2 of 58, pO2 of 69, bicarbonate 29, and oxygen saturation was 91% on FiO2 of 35%. His toxic screen was negative. He tells me that he is being treated for pneumonia by his primary care physician with [facility]. His chest x-ray done in the Emergency Room showed that the patient has normal lung volumes, bilateral perihilar and basilar opacities, indistinct pulmonary vasculature, stable right pleural thickening versus trace effusion. His heart and mediastinum showed cardiomegaly with the impression that the patient has bilateral perihilar and basilar opacities, likely edema. He was treated with IV Lasix. He did receive IV Lasix in the Emergency Room and was started on IV antibiotic in the form of piperacillin-tazobactam and was admitted for further evaluation and treatment with a diagnosis of acute on chronic diastolic congestive heart failure, acute hypoxic respiratory failure, community-acquired pneumonia. PAST MEDICAL HISTORY: Significant for he has coronary artery disease, status post PCI with stent deployment x 4, hypertension, hypercholesterolemia. He has multiple deep vein thrombosis, pleural effusions, COPD, multiple admissions for pneumonia, obstructive sleep apnea, hiatal hernia, gastroesophageal reflux disease, obesity, hypogonadism and severe degenerative arthritis of his knees and back. He has type 2 diabetes, which seems to be poorly controlled; hypothyroidism. PAST SURGICAL HISTORY: Significant for tonsillectomy, cardiac catheterization with stent deployment, has appendectomy, leiomyoma resection and tonsillectomy. FAMILY HISTORY: He has 2 brothers and 2 sisters, one of his sisters had thyroid cancer at the age 20, the other had acute respiratory failure and ARDS. The younger brother has diabetes and the older brother has osteoarthritis and shoulder surgery. His biological father is not known to him. His mother is still alive at the age of 85 and has leukemia, lymphoma and has also had multiple myocardial infarctions. He apparently has also severe mixed hyperlipidemia with severe triglyceridemia up to 13,000 and has been to cholesterol clinic down at [facility]. ALLERGIES: He is allergic to ____. MEDICATIONS: He is currently on following medications: He is on metaxalone 800 mg twice a day, ferrous sulfate 325 mg once a day, apixaban 5 mg twice a day, fenofibrate nanocrystallized 145 mg once a day, Crestor 40 mg at bedtime, hydralazine 25 mg 3 times a day, carvedilol 6.25 mg twice a day with meals, amlodipine 10 mg once a day, irbesartan 300 mg once a day. He is on aspirin 81 mg once a day, hydrocodone/APAP 7.5/325 one tablet every 6 hours, Tylenol Extra Strength 500 mg every 6 hours, Tylenol 650 mg every 8 hours, potassium chloride 20 mEq at bedtime. He is on furosemide 80 mg at bedtime, guaifenesin/dextromethorphan 5 mL 4 times a day as needed. He is on Trelegy Ellipta 1 puff at bedtime. He is on cyclosporine for Restasis 1 drop to both eyes twice a day, Colace 100 mg once a day, ranitidine 300 mg once a day, metformin 1000 mg twice a day, Humalog 20 units before meals and Humulin N 28 units daily with breakfast. He is also on Humulin N 70 units at bedtime, levothyroxine sodium 125 mcg once a day, multivitamin 1 tablet once a day. REVIEW OF SYSTEMS: As per history of present illness. PHYSICAL EXAMINATION: GENERAL: On arrival to the Emergency Room, he was clearly tachypneic, but there was no pallor, jaundice, cyanosis or thyromegaly. No jugular venous distention. He has bilateral lower limb edema. VITAL SIGNS: His heart rate was 100, blood pressure was 244/115, temperature was 97.6, respiratory rate was 29, oxygen saturation was 79% on room air. HEAD, EYES, EARS, NOSE AND THROAT: Showed normocephalic, atraumatic. NECK: Supple. HEART: Showed normal first and second heart sounds. No gallop or murmur. CHEST: Clear to auscultation. No crepitation or rhonchi. ABDOMEN: Distended, soft, nontender. NEUROLOGIC: He was awake, alert, responding appropriately. All cranial nerves intact. She moves extremities without difficulty. LABORATORY DATA: His lab work on arrival showed that his white cell count was 13,000; hemoglobin 12.8; hematocrit 41; MCV 81; and platelet count 213,000. His chemistry showed a serum sodium 136, potassium 4.3, chloride 96, bicarbonate 31, anion gap of 9, BUN 15, creatinine 1.2, estimated GFR was 61 mL per minute. His glucose was 397, calcium was 8.7. Total bilirubin, AST, ALT, alkaline phosphatase were normal. Total protein was 7.5, albumin was 3.3. His blood gases on admission showed a pH of 7.32, pCO2 of 58, pO2 of 69, bicarbonate 29 and oxygen saturation was 91% on FiO2 of 35%. His urinalysis was essentially unremarkable. Toxic screen was negative. His chest x-ray showed that he has normal lung volumes, bilateral perihilar and basilar opacities, indistinct pulmonary vasculature with stable right pleural thickening versus trace effusion. The heart and mediastinum showed cardiomegaly. He has bilateral perihilar and basilar opacities, likely pulmonary edema. He was treated with IV Lasix and was admitted for further evaluation and treatment. We will obviously resume all his medications and we will continue with IV Lasix and consult the Cardiology team to evaluate and assist with his management. TERESA GILBERT MD DR: KORTNEY/erik JOB#: [id number] / [id number]
--- NOTE | 2019-02-13 17:43 | CARD ---
MR#: [id number] Date of Study: 02/13/2019 Ordering Physician: TERESA GILBERT, Referring Physician: TERESA GILBERT, Tech: Lala Scott APPROVED REPORT EXAM: Two-dimensional and M-mode echocardiogram with Doppler and color Doppler. Other Information Quality : FairHR: 86bpm Technically limited study due to body habitus. INDICATION COPD Dyspnea Atrial Fibrillation Cardiac Disease: CAD Congestive Heart Failure RISK FACTORS Hypertension Hyperlipidemia Diabetes 2D DIMENSIONS Left Atrium(2D)4.3 (1.6-4.0cm)IVSd1.5 (0.7-1.1cm) Aortic Root(2D)3.6 (2.0-3.7cm)LVDd5.7 (3.9-5.9cm) LVOT Diameter2.1 (1.8-2.4cm)PWd1.3 (0.7-1.1cm) LVDs3.8 (2.5-4.0cm)FS (%) 32.8 % SV96.0 mlLVEF(%)60.6 (>50%) Aortic Valve AoV Peak Juan Miguel.203.9cm/sAoV VTI39.4cm AO Peak GR.16.6mmHgLVOT Peak Juan Miguel.137.8cm/s LVOT VTI 30.44cmAO Mean GR.8mmHg KATHY (VMAX)2.04tk5DAZ (VTI)2.56cm2 Pulmonary Valve PV Peak Eknphwoj232.9cm/sPV Peak Grad.7mmHg Pulmonary Vein S1 Gklqcwju63.3cm/sD2 Nmhbhfth16.8cm/s LEFT VENTRICLE The left ventricle is normal size. There is moderate concentric left ventricular hypertrophy. The lef t ventricular systolic function is normal and the ejection fraction is within normal range. The Eject ion Fraction is 55-60%. There is grossly normal LV segmental wall motion. Transmitral Doppler flow pa ttern is Grade I-abnormal relaxation pattern. RIGHT VENTRICLE The right ventricle is normal size. There is normal right ventricular wall thickness. The right ventr icular systolic function is normal. ATRIA The left atrium is moderately dilated. The right atrium is mildly dilated. The interatrial septum is intact with no evidence for an atrial septal defect or patent foramen ovale as noted on 2-D or Dopple r imaging. AORTIC VALVE The aortic valve is not well visualized. Doppler and Color Flow revealed no significant aortic regurg itation. There is no significant aortic valvular stenosis. MITRAL VALVE The mitral valve is normal in structure and function. Mitral annular calcification is mild to moderat e. There is no evidence of mitral valve prolapse. There is no mitral valve stenosis. Doppler and [place] r-flow revealed trace mitral regurgitation. TRICUSPID VALVE The tricuspid valve is not well visualized. Doppler and Color Flow revealed no tricuspid valve regurg itation noted. There is no tricuspid valve stenosis. PULMONIC VALVE The pulmonic valve is not well visualized. Doppler and Color Flow revealed no pulmonic valvular regur gitation. There is no pulmonic valvular stenosis. GREAT VESSELS The aortic root is normal in size. The IVC was not well visualized. PERICARDIAL EFFUSION There is no evidence of significant pericardial effusion. Critical Notification Critical Value: No <Conclusion> The left ventricular systolic function is normal and the ejection fraction is within normal range. Th e Ejection Fraction is 55-60%. There is grossly normal LV segmental wall motion. Signed by : Zana Hanson, Electronically Approved : 02/13/2019 17:42:34
[2019-02-13 19:44] VITALS: BP 159/67
[2019-02-13] MEDS: BUDESONIDE 0.5 MG/2 ML NEBU NEB SCH (19:53)
[2019-02-13] MEDS ORDERED: NPH HUMAN INSULIN ISOPHANE SQ SCH (21:00)
[2019-02-13] MEDS ORDERED: NON FORMULARY ITEM (Fluticasone/Umeclidin/Vilanter (Trelegy Ellipta 100-62.5-25) 1 PUFF) IH SCH (21:00)
[2019-02-13] MEDS: ATORVASTATIN CALCIUM 20 MG TABLET PO SCH (21:45)
[2019-02-13] MEDS: LACTOBACILLUS RHAMNOSUS GG 1 CAPSULE. PO SCH (21:45)
[2019-02-13] MEDS: FENOFIBRATE NANOCRYSTALLIZED 145 MG TABLET PO SCH (21:45)
[2019-02-13 22:26] VITALS: BP 165/73
[2019-02-13] MEDS ORDERED: SODIUM CHLORIDE 0.65% NASAL SPRAY 45ML BOTTLE. NS PRN (22:45)
--- NOTE | 2019-02-14 00:26 | PN ---
DATE: 02/13/2019 SUBJECTIVE: The patient is resting, sitting at the edge of the bed comfortably. He continues to complain of shortness of breath and swelling of both lower extremities. He has received 40 mg of Lasix last night and another 40 this morning and he has a total of about 5000 mL output. PHYSICAL EXAMINATION: GENERAL: When I examined him this afternoon, he looked well and was clearly in no apparent respiratory distress. No pallor, jaundice, cyanosis or thyromegaly. No jugular venous distension. No lower limb edema. VITAL SIGNS: Her heart rate was 72, blood pressure 158/65, temperature was 96.9, respiratory rate was 18, and oxygen saturation was 100% on 3 liters of oxygen. HEAD, EYES, EARS, NOSE, AND THROAT: Showed normocephalic, atraumatic. NECK: Supple. HEART: Showed normal first and second heart sounds. No gallop or murmur. CHEST: Shows central trachea, equal bilateral expansion, air entry, vesicular breath sounds. I could not really appreciate any crepitation or rhonchi. ABDOMEN: Distended, soft, nontender. NEUROLOGIC: He is awake, alert, responding appropriately. All cranial nerves are intact. He moves extremities without difficulty. His intake over the last 24 hours was 1450, output was 2125. LABORATORY DATA: As of this morning, his white cell count was 9800, hemoglobin 12.3, hematocrit 39, MCV 80 and platelet count 178,000. His chemistry showed serum sodium of 136, potassium 4.3, chloride 96, bicarbonate 31, anion gap of 9, BUN 15, creatinine 1.2, estimated GFR was 60 mL per minute, his glucose was 397. Calcium was 8.7. Total bilirubin, AST, ALT, alkaline phosphatase were normal. Total protein was 7.5, albumin 3.3. Serum triglycerides were 93. Total cholesterol 136, LDL was 80, VLDL was 18, HDL cholesterol was 38 and the ratio was 3. TSH was normal at 0.600. ASSESSMENT: 1. Community-acquired pneumonia. 2. Acute on chronic, probably diastolic congestive heart failure. 3. Acute hypoxic respiratory failure. 4. Type 2 diabetes mellitus, poorly controlled, probably due to steroids. 5. Hypertension. 6. Hyperlipidemia as well as hypercholesterolemia and hypertriglyceridemia. 7. He has also multiple episodes of deep venous thromboses for which he is on apixaban. PLAN: I will probably add another 40 mg of Lasix this afternoon and continue with IV daily. Continue with his oxygen supplementation and monitor his lab works. I will also check cardiac enzyme and consult the cardiology team to assist with his management. TERESA GILBERT MD DR: KORTNEY/erik JOB#: [id number] / [id number]
[2019-02-14 05:02] VITALS: BP 162/67
[2019-02-14] MEDS: HYDROcodone/APAP 7.5/325MG 1 TAB TABLET PO PRN ×2 (05:10→21:26)
[2019-02-14] MEDS: IPRATRPIUM/ALBUTEROL 0.5/2.5MG 3 ML NEBU. NEB SCH ×2 (05:26→09:38)
[2019-02-14] MEDS: PIPERACILLIN/TAZOBACTAM 3.375 GM in IV NORMAL SALINE 50ML 50 ML IV SCH ×3 (06:08→17:56)
[2019-02-14] MEDS: ALBUTEROL SULFATE 2.5 MG/3 ML NEBU. NEB SCH ×4 (08:00→19:58)
[2019-02-14] MEDS ORDERED: NPH HUMAN INSULIN ISOPHANE SQ SCH (08:00)
[2019-02-14] MEDS: cycloSPORINE 0.05% OPTH 1 DROP DROPERETTE OU SCH ×2 (08:11→21:18)
[2019-02-14] MEDS: FAMOTIDINE 20 MG TABLET PO SCH (08:11)
[2019-02-14] MEDS: amLODIPine BESYLATE 10 MG TABLET PO SCH (08:11)
[2019-02-14] MEDS: MULTIVITAMIN with MINERAL TABLET. PO SCH (08:11)
[2019-02-14] MEDS: ASPIRIN 81 MG TAB.CHEW PO SCH (08:11)
[2019-02-14] MEDS: LEVOTHYROXINE 125 MCG TABLET PO SCH (08:11)
[2019-02-14] MEDS: DOCUSATE SODIUM 100 MG CAPSULE PO SCH ×2 (08:11→21:23)
[2019-02-14] MEDS: APIXABAN 5 MG TABLET. PO SCH ×2 (08:11→21:18)
[2019-02-14] MEDS: LACTOBACILLUS RHAMNOSUS GG 1 CAPSULE. PO SCH ×2 (08:12→21:21)
[2019-02-14] MEDS: LOSARTAN 50 MG TABLET. PO SCH (08:12)
[2019-02-14] MEDS: CARVEDILOL 6.25 MG TABLET PO SCH ×2 (08:12→17:03)
[2019-02-14] MEDS: CYCLOBENZAPRINE 10 MG TABLET. PO SCH ×3 (08:12→21:17)
[2019-02-14] MEDS: metFORMIN 500 MG TABLET PO SCH ×2 (08:12→17:03)
[2019-02-14] MEDS: hydrALAZINE 25 MG TABLET PO SCH ×3 (08:13→21:22)
[2019-02-14 08:16] LABS: CALCIUM 8.5 mg/dL (8.5-10.1); POTASSIUM 3.8 mmol/L (3.5-5.1)
[2019-02-14] MEDS: FUROSEMIDE 40 MG/4 ML VIAL IVP SCH (08:23)
[2019-02-14] MEDS: INSULIN LISPRO 300 UNITS/3 ML VIAL. SQ SCH ×3 (08:26→17:05)
[2019-02-14] MEDS: INSULIN GLARGINE SYRINGE. SQ SCH ×2 (09:36→21:36)
[2019-02-14] MEDS: BUDESONIDE 0.5 MG/2 ML NEBU NEB SCH ×2 (09:38→19:58)
[2019-02-14 10:40] VITALS: BP 132/66
[2019-02-14 14:45] VITALS: BP 129/65
--- NOTE | 2019-02-14 15:56 | PDOC ---
PROVIDER NOTE PROVIDER NOTE PROVIDER NOTE CARDIOLOGY CONSULTATION NOTE: Reason for consultation: HF Consulting Physician: Dr. Stephens. HPI: Andrez is a 63-year-old man with past medical history as noted below comes into the hospital in the setting of progressive exertional dyspnea and he was severely hypoxic upon arrival but also was noted to have significant hypertensive urgency with systolic blood pressure above 240. It is likely, patient of this, his diastolic heart failure and COPD which led to his hypoxia. Talking with him he feels like he may have aspirated on some medication he was taking and also was missing his medication doses including his diuretic. Since arrival after initiation of diuretic therapy and medical treatment he is felt better. He denies any baseline anginal symptoms such as chest pain, dyspnea, orthopnea or PND. Past medical history 1. Coronary artery disease status post PCI 2. Hypertension 3. Morbid obesity 4. Dyslipidemia 5. Previous history of DVT 6. COPD 7. Objective sleep apnea on CPAP therapy 8. Degenerative knee disease 9. Type 2 diabetes Social history patient denies any alcohol, tobacco or illicit drug use at this time. Family history is noncontributory at this time Review systems is negative unless otherwise mentioned above in history of present illness. Allergies to multiple drugs as noted in the medical record Physical examination Vital signs stable The patient appeared well nourished and normally developed. Head exam is unremarkable. No scleral icterus or corneal arcus noted. Neck is without jugular venous distension, thyromegaly, or carotid bruits. Carotid upstrokes are brisk bilaterally. Lungs are clear to auscultation and percussion. Cardiac exam reveals the PMI to be normally sized and situated. Rhythm is regular. First and second heart sounds normal. No murmurs, rubs or gallops. Abdominal exam reveals normal bowel sounds, no masses, no organomegaly and no aortic enlargement. Extremities are nonedematous and both femoral and pedal pulses are normal. Msk: No traumua Neuro: No focal deficits Diagnostic studies reviewed EKG is unremarkable Echocardiogram demonstrates normal LV function without any significant valvular disease Troponin is negative BNP is grossly unremarkable Impression: 1. Acute on chronic diastolic heart failure due to uncontrolled hypertension and lack of diuretic therapy 2. Multiple other comorbidities as noted above Recommendations: 1. No further cardiac testing necessary at this time. He had a stress test approximately 2 years ago which was unremarkable. Supportive care from a cardiac standpoint. Continue current medications. KELSEY WILSON MD 23, 2019 15:56
--- NOTE | 2019-02-14 19:02 | PN ---
DATE: SUBJECTIVE: A 63-year-old male who was admitted by Dr. Stephens, however, this patient has been doing much better overall. Looks like he has chronic pleural effusions. The patient continues to be monitored carefully and the consult was with the Cardiology, but he is breathing much better. Blood pressures came down to 132/66, respiratory rate 20, pulse 66, and afebrile. The patient's labs are basically holding stable, although his sugars are high. We will put him on a sliding scale for that. Otherwise, he seems to be resting fairly comfortably, making fairly good progress. PHYSICAL EXAMINATION: LUNGS: Diminished throughout, but good movement of air. CARDIOVASCULAR: Regular sinus rhythm, S1 and S2, without murmur, rub, thrill, or extra heart sound. ABDOMEN: Protuberant. The patient is markedly overweight and obese. EXTREMITIES: Without clubbing or cyanosis. DICTATION ENDS HERE. ROSEANN OLIVIER MD DR: CAIO/erik JOB#: [id number] / [id number]
[2019-02-14 19:20] VITALS: BP 160/68
[2019-02-14] MEDS: ATORVASTATIN CALCIUM 20 MG TABLET PO SCH (21:17)
[2019-02-14] MEDS: POTASSIUM CHLORIDE 20 MEQ TABLET.ER. PO SCH (21:17)
[2019-02-14] MEDS: FENOFIBRATE NANOCRYSTALLIZED 145 MG TABLET PO SCH (21:17)
[2019-02-14] MEDS ORDERED: INSULIN GLARGINE SYRINGE. SQ ONE (22:00)
[2019-02-14 23:07] VITALS: BP 124/49
[2019-02-15 00:06] LABS: HEMOGLOBIN A1C 7.2 % (4.8-5.6)
[2019-02-15] MEDS: PIPERACILLIN/TAZOBACTAM 3.375 GM in IV NORMAL SALINE 50ML 50 ML IV SCH ×2 (00:18→05:07)
[2019-02-15 05:01] VITALS: BP 167/69
[2019-02-15] MEDS: ALBUTEROL SULFATE 2.5 MG/3 ML NEBU. NEB SCH ×4 (05:39→21:40)
[2019-02-15] MEDS: APIXABAN 5 MG TABLET. PO SCH ×2 (07:57→20:24)
[2019-02-15] MEDS: hydrALAZINE 25 MG TABLET PO SCH (07:57)
[2019-02-15] MEDS: metFORMIN 500 MG TABLET PO SCH ×2 (07:58→17:09)
[2019-02-15] MEDS: LOSARTAN 50 MG TABLET. PO SCH (07:58)
[2019-02-15] MEDS: LACTOBACILLUS RHAMNOSUS GG 1 CAPSULE. PO SCH ×2 (07:58→20:24)
[2019-02-15] MEDS: ASPIRIN 81 MG TAB.CHEW PO SCH (07:58)
[2019-02-15] MEDS: CARVEDILOL 6.25 MG TABLET PO SCH ×2 (07:59→17:09)
[2019-02-15] MEDS: FAMOTIDINE 20 MG TABLET PO SCH (07:59)
[2019-02-15] MEDS: amLODIPine BESYLATE 10 MG TABLET PO SCH (07:59)
[2019-02-15] MEDS: CYCLOBENZAPRINE 10 MG TABLET. PO SCH ×3 (07:59→20:24)
[2019-02-15] MEDS: LEVOTHYROXINE 125 MCG TABLET PO SCH (08:00)
[2019-02-15] MEDS: cycloSPORINE 0.05% OPTH 1 DROP DROPERETTE OU SCH ×2 (08:00→20:25)
[2019-02-15] MEDS: DOCUSATE SODIUM 100 MG CAPSULE PO SCH ×2 (08:00→20:25)
[2019-02-15] MEDS: MULTIVITAMIN with MINERAL TABLET. PO SCH (08:00)
[2019-02-15] MEDS: FUROSEMIDE 40 MG/4 ML VIAL IVP SCH (08:00)
[2019-02-15] MEDS: INSULIN LISPRO 300 UNITS/3 ML VIAL. SQ SCH ×3 (08:13→17:14)
--- NOTE | 2019-02-15 09:13 | PN ---
DATE: SUBJECTIVE: The patient is resting comfortably, making good progress. Labs are basically stable except for his blood sugars and placed on a sliding scale. In any case, the patient will be seen by the gin clerk for further evaluation. IMPRESSION: Possible community-acquired pneumonia; acute on top of chronic diastolic heart failure; bilateral pleural effusions, chronic; acute hypoxic respiratory failure; type 2 diabetes, poorly controlled; morbid obesity; essential hypertension; hyperlipidemia; hypertriglyceridemia, familial. PLAN: Continue on diuresis and make further evaluation on him with sliding scale and Cardiology consultation. ROSEANN OLIVIER MD DR: CAIO/erik JOB#: [id number] / [id number]
[2019-02-15] MEDS: BUDESONIDE 0.5 MG/2 ML NEBU NEB SCH ×2 (09:25→21:40)
[2019-02-15 10:47] VITALS: BP 142/57
[2019-02-15] MEDS: INSULIN GLARGINE SYRINGE. SQ SCH ×2 (10:59→20:15)
[2019-02-15 15:12] VITALS: BP 144/62
[2019-02-15 19:06] VITALS: BP 161/66
[2019-02-15] MEDS: ATORVASTATIN CALCIUM 20 MG TABLET PO SCH (20:21)
[2019-02-15] MEDS: HYDROcodone/APAP 7.5/325MG 1 TAB TABLET PO PRN (20:24)
[2019-02-15] MEDS: FENOFIBRATE NANOCRYSTALLIZED 145 MG TABLET PO SCH (20:25)
[2019-02-15] MEDS: POTASSIUM CHLORIDE 20 MEQ TABLET.ER. PO SCH (20:25)
[2019-02-15 22:26] VITALS: BP 135/76
--- NOTE | 2019-02-16 02:40 | PN ---
DATE: SUBJECTIVE: A 63-year-old male in with congestive heart failure. The patient says he is still getting dyspneic when he walks around, but other than that, he is making fairly good progress overall. PHYSICAL EXAMINATION: VITAL SIGNS: Include blood pressure 144/62. He has been increased on his hydralazine to bring that down, he was in the 160s. Respiratory rate 20, pulse 60, afebrile. Oxygen saturation gently coming down with oxygen. LUNGS: Otherwise, lungs are diminished throughout, but clear. CARDIOVASCULAR: Regular sinus rhythm, S1, S2. ABDOMEN: Soft, protuberant. EXTREMITIES: No clubbing, cyanosis or edema. NEUROLOGIC: Intact. The patient continues to be monitored. Sugars are coming down as well. We will continue to monitor him accordingly. IMPRESSION: Therefore, [id number] of chronic diastolic heart failure with that of morbid obesity, possible community-acquired pneumonia, bilateral pleural effusions, chronic. The patient's essential hypertension and type 2 diabetes poorly controlled. Continue with gentle diuresis and control of his essential hypertension as well. ROSEANN OLIVIER MD DR: CAIO/erik JOB#: [id number] / [id number]
[2019-02-16 05:09] VITALS: BP 154/69
[2019-02-16] MEDS: ALBUTEROL SULFATE 2.5 MG/3 ML NEBU. NEB SCH (05:57)
[2019-02-16] MEDS: LACTOBACILLUS RHAMNOSUS GG 1 CAPSULE. PO SCH (07:54)
[2019-02-16] MEDS: LEVOTHYROXINE 125 MCG TABLET PO SCH (07:54)
[2019-02-16] MEDS: APIXABAN 5 MG TABLET. PO SCH (07:55)
[2019-02-16] MEDS: FERROUS SULFATE 325 MG TABLET. PO SCH (07:55)
[2019-02-16] MEDS: LOSARTAN 50 MG TABLET. PO SCH (07:55)
[2019-02-16] MEDS: ASPIRIN 81 MG TAB.CHEW PO SCH (07:55)
[2019-02-16] MEDS: metFORMIN 500 MG TABLET PO SCH (07:55)
[2019-02-16] MEDS: amLODIPine BESYLATE 10 MG TABLET PO SCH (07:55)
[2019-02-16] MEDS: DOCUSATE SODIUM 100 MG CAPSULE PO SCH (07:56)
[2019-02-16] MEDS: FAMOTIDINE 20 MG TABLET PO SCH (07:56)
[2019-02-16] MEDS: CARVEDILOL 6.25 MG TABLET PO SCH (07:56)
[2019-02-16] MEDS: CYCLOBENZAPRINE 10 MG TABLET. PO SCH (07:56)
[2019-02-16] MEDS: MULTIVITAMIN with MINERAL TABLET. PO SCH (07:56)
[2019-02-16 07:57] VITALS: BP 154/69
[2019-02-16] MEDS: FUROSEMIDE 40 MG/4 ML VIAL IVP SCH (07:57)
[2019-02-16] MEDS: cycloSPORINE 0.05% OPTH 1 DROP DROPERETTE OU SCH (07:57)
[2019-02-16] MEDS: INSULIN LISPRO 300 UNITS/3 ML VIAL. SQ SCH (08:06)
[2019-02-16] MEDS: INSULIN GLARGINE SYRINGE. SQ SCH (08:06)
[2019-02-16] MEDS ORDERED: FURO-68 PO (09:01)
[2019-02-16] MEDS ORDERED: LACT1CAP19 PO (09:01)
[2019-02-16] MEDS ORDERED: SODI44SP NS (09:01)
[2019-02-16] MEDS ORDERED: HYDR-2869 PO (09:01)
--- NOTE | 2019-02-16 09:03 | DISCH ---
HOME HEALTH DISCHARGE/MEDS DISCHARGE INFORMATION: Discharge Date: Feb 16, 2019 Final Diagnosis: Problems Medical Problems: (1) Acute exacerbation of CHF (congestive heart failure) Status: Acute (2) Pneumonia Status: Acute (3) Respiratory failure Status: Acute Condition on Discharge: Stable CODE STATUS: Code Status: Full HOME HEALTH: Face to Face: I certify this patient is under my care and that I, or a nurse practitioner or physician's physician's assistant working with me, had a face to face encounter that meets the physician face to face encounter requirements with this patient on [Date]. Medical Condition(s): CHF, DM, HTN, Pneumonia Assisted For: Assess Cardiopulm Status, Assess & Educate Safety, Assess/Skilled Observatio, Diabetic Care, Medication Management Physical Therapy For: Evalulation/Treatment Homebound Status Met By: Unsteady balance w/ amb,, Fatigue w/ amb., Limited distance walking POST DISCHARGE ORDERS: Activity Instructions for Disc: Activity as tolerated DIET AFTER DISCHARGE: ADA CHECKS AFTER DISCHARGE: Checks after discharge: Check blood press - daily, Check blood sugar, ac/hs, Weigh Yourself Daily CERTIFICATION STATEMENT: Certification Statement: Based on the above finding, I certify that this patient is confined to the home and needs intermittent chcf care, physical therapy and/or speech therapy, or continues to need occupational therapy.~ This patient is under my care, and I have initiated the establishment of the plan of care.~ This patient will be followed by myself or a community physician who will periodically review the plan of care. DISCHARGE MEDICATIONS: Home Meds Reported Medications Insulin Lispro (HUMALOG) 100 Unit/1 Ml Vial, 20 UNITS SQ TIDWMEALS for diabetes 02/13/19 Amlodipine Besylate (AMLODIPINE BESYLATE) 10 Mg Tablet, 10 MG PO DAILY for HTN 02/13/19 Acetaminophen (TYLENOL EXTRA STRENGTH) 500 Mg Tablet, 500 MG PO PRN Q6HRS PRN for PAIN / TEMP 02/13/19 Fluticasone/Umeclidin/Vilanter (Trelegy Ellipta 100-62.5-25) 1 Each Blst.w.dev, 1 PUFF IH HS for COPD 02/13/19 Cyclosporine (RESTASIS) 1 Each Droperette, 1 DROP EACHEYE BID for DRYNESS 02/13/19 Rosuvastatin Calcium (Rosuvastatin Calcium) 40 Mg Tablet, 40 MG PO HS for HLD 02/13/19 Ferrous Sulfate (IRON) 325 Mg Tablet, 325 MG PO QMONFR for SUPPLEMENT, TAB 02/13/19 Acetaminophen Er (ACETAMINOPHEN ER) 650 Mg Tablet.er, 650 MG PO PRN Q8HRS PRN for FEVER/PAIN, TAB.SR 02/13/19 Guaifenesin/Dextromethorphan (GUAIFENESIN DM SYRUP) 5 Ml Syrup, 5 ML PO QIDPRN PRN for CONGESTION, MISC 02/13/19 Carvedilol (CARVEDILOL ) 6.25 Mg Tablet, 6.25 MG PO BIDWMEALS for CARDIAC, TAB 02/13/19 Nph, Human Insulin Isophane (HUMULIN N) 100 Unit/1 Ml Vial, 70 UNIT SQ HS for diabetes, EACH 12/14/17 Nph, Human Insulin Isophane (HUMULIN N) 100 Unit/1 Ml Vial, 28 UNIT SQ D AILYWBKFT for diabetes, EACH 9PM 12/14/17 Fenofibrate Nanocrystallized (FENOFIBRATE) 145 Mg Tablet, 1 TAB PO HS, #30 TAB 5 Refills 12/14/17 Furosemide (FUROSEMIDE) 80 Mg Tablet, 1 TAB PO HS, #30 TAB 5 Refills 12/14/17 Ranitidine Hcl (RANITIDINE HCL) 300 Mg Capsule, 1 CAP PO DAILY for REFLUX, #30 CAP 3 Refills 12/14/17 Potassium Chloride (POTASSIUM CHLORIDE) 10 Meq Tablet.er, 20 MEQ PO HS, TAB 12/14/17 Hydrocodone Bit/Acetaminophen (HYDROCODONE-APAP 7.5-325 ) 1 Each Tablet, 1 TAB PO PRN Q6HRS PRN for PAIN, TAB 0 Refills 12/14/17 Levothyroxine Sodium (SYNTHROID) 125 Mcg Tablet, 125 MCG PO DAILYAC for THYROID SUPPLEMENT, #30 TAB 0 Refills 12/14/17 Apixaban (ELIQUIS) 5 Mg Tablet, 5 MG PO BID, TAB 12/14/17 Docusate Sodium (DOCUSATE SODIUM) 100 Mg Capsule, 100 MG PO BID, CAP 12/14/17 Metformin Hcl (METFORMIN HCL) 1,000 Mg Tablet, 1000 MG PO BID for ANTI-DIABETIC, TAB 0 Refills 12/14/17 Hydralazine Hcl (HYDRALAZINE HCL) 25 Mg Tablet, 1 TAB PO TID for HTN, #60 TAB 5 Refills 12/14/17 Aspirin (ASPIRIN) 81 Mg Tab.chew, 81 MG PO DAILY, TAB 12/14/17 Irbesartan (IRBESARTAN) 300 Mg Tablet, 300 MG PO DAILY, TAB 12/14/17 Metaxalone (METAXALONE) 800 Mg Tablet, 800 MG PO BID, TAB 12/14/17 Multivitamin (DAILY BANDAR) 1 Each Tablet, 1 EACH PO DAILY, TAB 12/14/17 Discontinued Reported Medications Acetaminophen (Tylenol) 325 Mg Capsule, 500 MG PO BID, CAP 12/14/17 Guaifenesin (MUCINEX) 600 Mg Tablet.er, 600 MG PO BID, TAB.SR 12/14/17 Magnesium Oxide (MAGNESIUM) 400 Mg Capsule, 500 MG PO DAILY, CAP 12/14/17 Carvedilol (COREG ) 3.125 Mg Tablet, 3.125 MG PO BIDWMEALS, TAB 12/14/17 ROSEANN OLIVIER MD Feb 16, 2019 09:03
== END 2019-02-16 10:00 | disposition home or self-care (01) | DRG 871 ==
LOC: ER 20:11 → 1 SOUTH 22:23
PROVIDERS: ADMIT Family Medicine; ATTEND Family Medicine
PROC: 5A09357 Assistance with Respiratory Ventilation, Less than 24 Consecutive Hours, Continuous Positive Airway Pressure (ICD-10-PCS; principal; 2019-02-12)
PROC: 5A09357 Assistance with Respiratory Ventilation, Less than 24 Consecutive Hours, Continuous Positive Airway Pressure (ICD-10-PCS; 2019-02-13)
PROC: 5A09357 Assistance with Respiratory Ventilation, Less than 24 Consecutive Hours, Continuous Positive Airway Pressure (ICD-10-PCS; 2019-02-14)
PROC: 5A09357 Assistance with Respiratory Ventilation, Less than 24 Consecutive Hours, Continuous Positive Airway Pressure (ICD-10-PCS; 2019-02-16)
DX: A41.9 Sepsis, unspecified organism (principal); J18.9 Pneumonia, unspecified organism; J96.01 Acute respiratory failure with hypoxia; I50.33 Acute on chronic diastolic (congestive) heart failure; J44.0 Chronic obstructive pulmonary disease with (acute) lower respiratory infection; I11.0 Hypertensive heart disease with heart failure; I25.10 Atherosclerotic heart disease of native coronary artery without angina pectoris; E78.00 Pure hypercholesterolemia, unspecified; K21.9 Gastro-esophageal reflux disease without esophagitis; G47.33 Obstructive sleep apnea (adult) (pediatric); E03.9 Hypothyroidism, unspecified; E66.01 Morbid (severe) obesity due to excess calories; E11.65 Type 2 diabetes mellitus with hyperglycemia; E78.1 Pure hyperglyceridemia; E78.5 Hyperlipidemia, unspecified; F40.240 Claustrophobia; M17.0 Bilateral primary osteoarthritis of knee; Z86.718 Personal history of other venous thrombosis and embolism; Z99.81 Dependence on supplemental oxygen; Z88.1 Allergy status to other antibiotic agents; Z88.5 Allergy status to narcotic agent; Z88.7 Allergy status to serum and vaccine; Z88.8 Allergy status to other drugs, medicaments and biological substances; Z95.5 Presence of coronary angioplasty implant and graft; Z90.49 Acquired absence of other specified parts of digestive tract; Z88.9 Allergy status to unspecified drugs, medicaments and biological substances; Z87.891 Personal history of nicotine dependence; Z83.3 Family history of diabetes mellitus; Z87.01 Personal history of pneumonia (recurrent); Z80.8 Family history of malignant neoplasm of other organs or systems; Z80.6 Family history of leukemia; Z80.7 Family history of other malignant neoplasms of lymphoid, hematopoietic and related tissues; Z68.37 Body mass index [BMI] 37.0-37.9, adult
CPT/HCPCS: 36415; 36600; 71045; 80048; 80053; 80061; 80307; 81001; 82140; 82803; 82947; 83036; 83605; 83880; 84443; 84484; 85025; 87040; 93306; 94640; 94644; 94660; 94760; 96361; 96374; 96375; J1815; J1940; J2405; J2543; J2930; J7613; J7620; J7626; 99291-25; J7030

== ENCOUNTER 2019-07-22 19:59 | Emergency (ER) | payer MEDICARE, BC ==
[~2019-07-22] VITALS: Ht 190.5 cm; Wt 142.9 kg
[~2019-07-22 19:59] MED LIST changes: +ACET-1874 PO; +ACET500T33 PO; +AMLO-187 PO; -AMLO10TA8 PO; +CARV6.2541 PO; +CYCL1DRO EACHEYE; +FENO145T3 PO; -FENO145T30 PO; +FERR-36 PO; +FLUT1BLS3 IH; +GUAI5SYR PO; +HYDR-2869 PO; +INSU100V SQ; +IRBE300T23 PO; -IRBE300T3 PO; +LACT1CAP19 PO; +ROSU40TA22 PO; +SODI44SP NS
[2019-07-22 20:07] VITALS: BP 173/72
[2019-07-22] MEDS ORDERED: predniSONE 20 MG TABLET PO ONE (20:15)
--- NOTE | 2019-07-22 20:37 | PHYS DOC ---
Past History Past Medical History: Asthma, Bronchitis, CAD, CHF, COPD, Diabetes, DVT, GERD, High Cholesterol, Hypertension, Hypothyroid, Pneumonia, URI, Other Additional Past Medical Histor: wears 2L NC at all times at home Past Surgical History: Appendectomy, Tonsillectomy, Other Additional Past Surgical Histo: cardiac stents x3, hernia repair x4 Smoking: Cigarettes, Quit Greater Than 1 Year Alcohol Use: Sober Drug Use: None General Adult EDM: Chief Complaint: SHORTNESS OF BREATH HPI: HPI: Patient is a 64 year old male who presents for evaluation of shortness of air as well as some productive cough. Patient states that he had some crackles at home. Patient ID fevers and chills. Patient states he called his doctor and was advised to come to the hospital for evaluation. Patient has been having some light headedness. Patient has a history of heart disease, COPD as well as asthma and chronic bronchitis. Patient is in mild distress on arrival. Patient uses home oxygen 2 L chronically. Symptoms been progressing for the past 2 months. Patient states that he has been isolated in quarantine and has not been around any known patients with COVID-19. No conversational dyspnea noted [] Review of Systems: Review of Systems: Constitutional: Denies fever or chills Eyes: Denies change in visual acuity HENT: Denies nasal congestion or sore throat Respiratory: has cough and shortness of breath Cardiovascular: Denies chest pain, has mild edema GI: Denies abdominal pain, nausea, vomiting, bloody stools or diarrhea : Denies dysuria Musculoskeletal: Denies back pain or joint pain Integument: Denies rash Neurologic: Denies headache, focal weakness or sensory changes Endocrine: Denies polyuria or polydipsia Lymphatic: Denies swollen glands Psychiatric: Denies depression or anxiety Heart Score: Risk Factors: Risk Factors: DM, Current or recent (<one month) smoker, HTN, HLP, family history of CAD, obesity. Risk Scores: Score 0 - 3: 2.5% MACE over next 6 weeks - Discharge Home Score 4 - 6: 20.3% MACE over next 6 weeks - Admit for Clinical Observation Score 7 - 10: 72.7% MACE over next 6 weeks - Early Invasive Strategies Current Medications: Current Meds: Current Medications Medications (Trade) Dose Ordered Sig/Leeanna Start Time Stop Time Status Last Admin Dose Admin Prednisone (Prednisone) 60 mg 1X ONCE 07/22/19 20:15 07/22/19 20:18 DC Allergies: Allergies: Allergies Coded Allergies Type Severity Reaction Last Updated Verified pioglitazone Allergy Severe swelling 03/27/15 Yes erythromycin base Allergy Intermediate rash and hives 03/27/15 Yes influenza virus vaccine, specific Allergy Intermediate SOB 03/27/15 No morphine Allergy Intermediate 12/16/15 Yes shellfish derived Allergy Intermediate SHRIMP-RASH/HIVES 03/27/15 Yes spinach Allergy Intermediate Hives 12/14/15 Yes torsemide Allergy Intermediate 12/16/15 Yes vancomycin Allergy Intermediate red iveth syndrome with IV/sob 03/27/15 Yes wool Allergy Intermediate Hives 12/14/15 Yes Physical Exam: PE: Constitutional: Well developed, well nourished, mild acute distress, non-toxic appearance. [] HENT: Normocephalic, atraumatic, bilateral external ears normal, oropharynx moist, no oral exudates, nose normal. [] Eyes: PERRL, EOMI, conjunctiva normal, no discharge. [] Neck: Normal range of motion, no tenderness, supple, no stridor. [] Cardiovascular:Heart rate regular rhythm, murmur present [] Lungs & Thorax: Bilateral breath sounds, some diminished breath sounds, scant crackles [] Abdomen: Bowel sounds normal, soft, no tenderness, no masses, no pulsatile masses. [] Skin: Warm, dry, no erythema, no rash. [] Back: No tenderness, no CVA tenderness. [] Extremities: No tenderness, no cyanosis, no clubbing, ROM intact, no edema. [] Neurologic: Alert and oriented X 3, normal motor function, normal sensory function, no focal deficits noted. [] Psychologic: Affect normal, judgement normal, mood normal. [] Current Patient Data: Vital Signs: Vital Signs Date Time Temp Pulse Resp B/P (MAP) Pulse Ox O2 Delivery O2 Flow Rate FiO2 07/22/19 20:07 98.3 62 20 173/72 (105) 95 Nasal Cannula 2.0 EKG: EKG: EKG: Normal sinus rhythm, rate 64, leftward axis, left anterior fascicular block, right bundle branch block, bifascicular block, not STEMI, read at 2031 [] Radiology/Procedures: Radiology/Procedures: [place] [id number] IMAGING REPORT Signed PATIENT: SHAUN BAEZ ACCOUNT: [id number] : 1955 LOCATION: ER AGE: 64 SEX: M EXAM STATUS: REG ER ORD. PHYSICIAN: RAJESH MOLINA DO REASON: short of air, hx COPD PROCEDURE: CHEST AP ONLY Exam: Chest one view INDICATION: Short of air TECHNIQUE: Frontal view of the chest Comparisons: 02/12/2019 FINDINGS: Heart is enlarged. Pulmonary vessels are within normal limits. The lung and pleural spaces are clear. IMPRESSION: No acute pulmonary process. Electronically signed by: Benjie Phillips MD (07/22/2019 8:56 PM) [id number] DICTATED AND SIGNED BY: BENJIE PHILLIPS MD DATE: 07/22/192055 CC: ROSEANN OLIVIER MD; RAJESH MOLINA DO ~ [] Course & Med Decision Making: Course & Med Decision Making Pertinent Labs and Imaging studies reviewed. (See chart for details) 2127 stable, feeling somewhat better at this time. Treatment options discussed and patient will be placed on doxycycline. Steroids were considered but because blood sugars are higher those were held for any further dosing at this time. Chest x-ray is clear, white blood cell count is nearly normal. Troponin and BNP were also normal. Considerations included pneumonia versus bronchitis versus cardiac versus congestive heart failure. Patient does not meet criteria or need for admission at this time. Patient is stable and ready to go home. Close follow-up with his primary care recommended. All questions answered [] Dragon Disclaimer: Dragshahram Disclaimer: This electronic medical record was generated, in whole or in part, using a voice recognition dictation system. Departure Departure: Impression: Primary Impression: Acute bronchitis Qualified Codes: J20.9 - Acute bronchitis, unspecified Additional Impressions: History of COPD Hyperglycemia Disposition: HOME, SELF-CARE Condition: STABLE Referrals: ROSEANN OLIVIER MD (PCP) Patient Instructions: Acute Bronchitis, Chronic Obstructive Pulmonary Disease, Hyperglycemia Additional Instructions: Use your home breathing treatments as directed, take medications as directed, call and see your doctor right away in follow-up, return if worsen Scripts Doxycycline Hyclate (DOXYCYCLINE HYCLATE) 100 Mg Capsule 1 CAP PO BID for bronchitis, hx COPD, #20 CAP Prov: RAJESH MOLINA DO 07/22/19 RAJESH MOLINA DO Jul 22, 2019 20:37
--- NOTE | 2019-07-22 20:59 | RAD ---
Exam: Chest one view INDICATION: Short of air TECHNIQUE: Frontal view of the chest Comparisons: 02/12/2019 FINDINGS: Heart is enlarged. Pulmonary vessels are within normal limits. The lung and pleural spaces are clear. IMPRESSION: No acute pulmonary process. Electronically signed by: Benjie Jose MD (07/22/2019 8:56 PM) [id number]
[2019-07-22 21:04] LABS: BASO # 0.1 x10^3/uL (0.0-0.2); BASO % 1 % (0-3); EOS # 0.2 x10^3/uL (0.0-0.7); EOS % 2 % (0-3); HEMATOCRIT 36.2 % (39.0-53.0); HEMOGLOBIN 11.8 g/dL (13.0-17.5); LYMPH % 10 % (24-48); MEAN CORPUSCULAR HEMOGLOBIN 27 pg (25-35); MEAN CORPUSCULAR HGB CONC 33 g/dL (31-37); MEAN CORPUSCULAR VOLUME 83 fL (79-100); MONO # 0.9 x10^3/uL (0.0-1.1); MONO % 9 % (0-9); NEUT # 7.9 x10^3uL (1.8-7.7); NEUT % 78 % (31-73); PLATELET COUNT 186 x10^3/uL (140-400); RED BLOOD COUNT 4.34 x10^6/uL (4.30-5.70); RED CELL DISTRIBUTION WIDTH 15.6 % (11.5-14.5); WHITE BLOOD COUNT 10.1 x10^3/uL (4.0-11.0)
[2019-07-22 21:07] LABS: CALCIUM 9.2 mg/dL (8.5-10.1); CREATININE 1.1 mg/dL (0.7-1.3); POTASSIUM 4.4 mmol/L (3.5-5.1)
[2019-07-22 21:19] LABS: ALBUMIN 3.5 g/dL (3.4-5.0); ALBUMIN/GLOBULIN RATIO 0.9 (1.0-1.7); TOTAL BILIRUBIN 0.4 mg/dL (0.2-1.0); TOTAL PROTEIN 7.3 g/dL (6.4-8.2)
[2019-07-22] MEDS ORDERED: DOXYCYCLINE HYCLATE 100 MG TABLET PO ONE (21:30)
[2019-07-22] MEDS ORDERED: DOXY100C2 PO (21:34)
--- NOTE | 2019-07-22 21:42 | EKG ---
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
[2019-09-20] MEDS ORDERED: FAMO20TA5 PO (10:19)
[2019-09-20] MEDS ORDERED: CARV12.547 PO (10:19)
[2019-09-20] MEDS ORDERED: FURO40TA4 PO (10:19)
== END 2019-07-22 21:42 | disposition home or self-care (01) ==
LOC: ER 19:59
DX: J20.9 Acute bronchitis, unspecified (principal); J44.9 Chronic obstructive pulmonary disease, unspecified; E11.65 Type 2 diabetes mellitus with hyperglycemia; I11.0 Hypertensive heart disease with heart failure; I50.9 Heart failure, unspecified; Z86.718 Personal history of other venous thrombosis and embolism; K21.9 Gastro-esophageal reflux disease without esophagitis; E78.00 Pure hypercholesterolemia, unspecified; I10 Essential (primary) hypertension; E03.9 Hypothyroidism, unspecified; Z87.891 Personal history of nicotine dependence; Z88.1 Allergy status to other antibiotic agents; Z88.8 Allergy status to other drugs, medicaments and biological substances; Z91.013 Allergy to seafood; Z88.7 Allergy status to serum and vaccine; Z91.018 Allergy to other foods
CPT/HCPCS: 36415; 71045; 80053; 83880; 84484; 85025; 93005; 99285; J7512

== ENCOUNTER 2019-09-16 21:33 | Inpatient (IN) | payer MEDICARE, BC ==
[~2019-09-16] VITALS: Ht 190.5 cm; Wt 147.4 kg
[~2019-09-16 21:33] MED LIST changes: -AMLO-187 PO; +AMLO10TA8 PO
[2019-09-16] MEDS ORDERED: DEXAMETHASONE SOD PHOS 4 MG/ML VIAL IVP ONE (22:00)
--- NOTE | 2019-09-16 22:02 | PHYS DOC ---
Past History Past Medical History: Asthma, Bronchitis, CAD, CHF, COPD, Diabetes, DVT, GERD, High Cholesterol, Hypertension, Hypothyroid, Pneumonia, URI, Other Additional Past Medical Histor: wears 2L NC at all times at home Past Surgical History: Appendectomy, Tonsillectomy, Other Additional Past Surgical Histo: cardiac stents x3, hernia repair x4 Smoking: Cigarettes, Quit Greater Than 1 Year Alcohol Use: Sober Drug Use: None General Adult EDM: Chief Complaint: SHORTNESS OF BREATH HPI: HPI: 64-year-old male with past medical history of COPD presents with progressive dyspnea since last night. Denies fever or chills. Reports productive cough. Patient was seen by PCP on Saturday and started on Augmentin and steroid therapy. Patient reports symptoms have not improve despite therapy. Patient therefore presents to the ER for further evaluation and treatment. Denies trauma. Denies leg swelling or calf tenderness. Denies his daughter was diagnosed with COVID19. Reports they do not live together. Reports Dr. Larsen's office tested him on Saturday but he has not gotten the results. Review of Systems: Review of Systems: Constitutional: Denies fever or chills Eyes: Denies redness or eye pain HENT: Denies nasal congestion or sore throat Respiratory: Reports cough and shortness of breath Cardiovascular: Denies chest pain or palpitations GI: Denies abdominal pain, nausea, or vomiting : Denies dysuria or hematuria Musculoskeletal: Denies back pain or joint pain Integument: Denies rash or skin lesions Neurologic: Denies headache, focal weakness or sensory changes Complete systems were reviewed and found to be within normal limits, except as documented in this note. Allergies: Allergies: Allergies Coded Allergies Type Severity Reaction Last Updated Verified pioglitazone Allergy Severe swelling 03/27/15 Yes erythromycin base Allergy Intermediate rash and hives 03/27/15 Yes influenza virus vaccine, specific Allergy Intermediate SOB 03/27/15 No morphine Allergy Intermediate 12/16/15 Yes shellfish derived Allergy Intermediate SHRIMP-RASH/HIVES 03/27/15 Yes spinach Allergy Intermediate Hives 12/14/15 Yes torsemide Allergy Intermediate 12/16/15 Yes vancomycin Allergy Intermediate red iveth syndrome with IV/sob 03/27/15 Yes wool Allergy Intermediate Hives 12/14/15 Yes Physical Exam: PE: Constitutional: Well developed, well nourished, no acute distress, non-toxic appearance HENT: Normocephalic, atraumatic, oropharynx moist Eyes: Conjunctiva normal, no discharge Neck: Normal range of motion, no tenderness, supple Cardiovascular: Heart rate normal, regular rhythm Lungs & Thorax: Bilateral breath sounds clear to auscultation, no wheezing Abdomen: Soft, no tenderness Skin: Warm, dry, no erythema, no rash Back: No tenderness, no CVA tenderness Extremities: No tenderness, ROM intact, no edema Neurologic: Alert and oriented X 3, normal motor function, normal sensory function, no focal deficits noted Psychologic: Affect normal, judgment normal Current Patient Data: Labs: Laboratory Tests Test 09/16/19 21:44 Glucose (Fingerstick) 155 mg/dL (70-99) H EKG: EKG: @2148 NSR at 71bpm, NO ST elevation, QRS 152ms, QT/QTc 442/480ms, Bifasicular block Radiology/Procedures: Radiology/Procedures: PROCEDURE: PORTABLE CHEST 1V Exam: Chest one view INDICATION: Cough TECHNIQUE: Frontal view of the chest Comparisons: 07/22/2019 FINDINGS: The cardiomediastinal silhouette and pulmonary vessels are within normal limits. The lung and pleural spaces are clear. IMPRESSION: No acute cardiopulmonary process. Electronically signed by: Benjie Jose MD (09/16/2019 10:34 PM) [id number] Course & Med Decision Making: Course & Med Decision Making Pertinent Labs and Imaging studies reviewed. (See chart for details) Patient with past medical history of COPD presents with several day history of worsening dyspnea with associated productive cough. Patient reports has been seen by his PCP on Saturday and started on course of steroids and Augmentin. Patient reports symptoms are not improving. Denies fever or chills. Denies t rauma. EKG stable. Labs obtained and posted to chart. Leukocytosis noted. Lactic acid within normal limits. Initial troponin within normal limits. Chest x-ray without acute process. Patient requiring admission for further evaluation and treatment after failed outpatient therapy. Discussed with Dr. Larsen (hospitalist) who is in agreement with admission. Reports 1 gram Rocephin to be given. Discussed findings and plan with patient and family, who acknowledge understanding and agreement. Billie Disclaimer: Billie Disclaimer: This electronic medical record was generated, in whole or in part, using a voice recognition dictation system. Departure Departure: Impression: Primary Impression: COPD with acute exacerbation Additional Impressions: Failure of outpatient treatment Leukocytosis Qualified Codes: D72.829 - Elevated white blood cell count, unspecified Disposition: ADMITTED INPATIENT Condition: STABLE Referrals: ROSEANN LARSEN MD (PCP) Justification of Admission: Justification of Admission: Justification of Admission Dx: Yes Comments: COPD, failed outpatient therapy KARISSA CARRERO DO Sep 16, 2019 22:01
[2019-09-16 22:17] LABS: BASO # 0.2 x10^3/uL (0.0-0.2); BASO % 1 % (0-3); EOS # 0.1 x10^3/uL (0.0-0.7); EOS % 1 % (0-3); HEMATOCRIT 35.8 % (39.0-53.0); HEMOGLOBIN 11.3 g/dL (13.0-17.5); LYMPH # 0.9 x10^3/uL (1.0-4.8); LYMPH % 5 % (24-48); MEAN CORPUSCULAR HEMOGLOBIN 27 pg (25-35); MEAN CORPUSCULAR HGB CONC 32 g/dL (31-37); MEAN CORPUSCULAR VOLUME 84 fL (79-100); MONO % 5 % (0-9); NEUT # 17.2 x10^3uL (1.8-7.7); NEUT % 89 % (31-73); PLATELET COUNT 196 x10^3/uL (140-400); RED BLOOD COUNT 4.25 x10^6/uL (4.30-5.70); RED CELL DISTRIBUTION WIDTH 16.6 % (11.5-14.5); WHITE BLOOD COUNT 19.3 x10^3/uL (4.0-11.0)
[2019-09-16 22:22] LABS: CALCIUM 9.7 mg/dL (8.5-10.1); CREATININE 1.3 mg/dL (0.7-1.3); GFR 55.2; POTASSIUM 4.2 mmol/L (3.5-5.1)
[2019-09-16 22:33] LABS: % BANDS 9 % (0-9); % BASOS 1 % (0-3); % EOS 1 % (0-5); % LYMPHS 5 % (24-48); % MONOS 1 % (0-10); % SEGS 83 % (35-66); PLT ESTIMATE ADEQUATE (ADEQUATE)
[2019-09-16 22:34] LABS: POLYCHROMASIA SLIGHT; TOXIC GRANULATION MOD
--- NOTE | 2019-09-16 22:37 | RAD ---
Exam: Chest one view INDICATION: Cough TECHNIQUE: Frontal view of the chest Comparisons: 07/22/2019 FINDINGS: The cardiomediastinal silhouette and pulmonary vessels are within normal limits. The lung and pleural spaces are clear. IMPRESSION: No acute cardiopulmonary process. Electronically signed by: Benjie Jose MD (09/16/2019 10:34 PM) [id number]
[2019-09-16 22:39] LABS: ALBUMIN 3.2 g/dL (3.4-5.0); ALBUMIN/GLOBULIN RATIO 0.8 (1.0-1.7); TOTAL BILIRUBIN 0.4 mg/dL (0.2-1.0); TOTAL PROTEIN 7.1 g/dL (6.4-8.2)
[2019-09-16] MEDS ORDERED: ASPIRIN 325 MG TABLET PO ONE (22:45)
[2019-09-16] MEDS ORDERED: hydrALAZINE 20 MG/ML VIAL. IV ONE (22:45)
[2019-09-16] MEDS ORDERED: DEXTROSE 50% 25 GM / 50ML DISP.SYRIN. IV PRN (23:45)
[2019-09-16] MEDS ORDERED: ALBUTEROL SULFATE 2.5 MG/3 ML NEBU. NEB PRN (23:45)
[2019-09-17 00:07] VITALS: BP 145/62
[2019-09-17] MEDS ORDERED: GUAI400T78 PO (02:40)
[2019-09-17] MEDS ORDERED: DIPH25CA58 PO (02:52)
[2019-09-17] MEDS ORDERED: MAGN250T10 PO (02:52)
[2019-09-17] MEDS ORDERED: ICOS1CAP PO (02:52)
[2019-09-17] MEDS ORDERED: HYPR10GE OP (02:52)
[2019-09-17] MEDS ORDERED: IPRA3AMP29 NEB (02:52)
[2019-09-17] MEDS ORDERED: CARB15DR3 EACHEYE (02:52)
[2019-09-17] MEDS ORDERED: HYDR-2868 PO (02:53)
[2019-09-17 05:03] VITALS: BP 124/66
[2019-09-17] MEDS ORDERED: ACET-1874 PO (06:36)
[2019-09-17] MEDS ORDERED: OMEG1CAP50 PO (06:39)
[2019-09-17] MEDS ORDERED: HYDROcodone/APAP 7.5/325MG 1 TAB TABLET PO PRN (07:30)
[2019-09-17] MEDS ORDERED: MAGNESIUM OXIDE 250 MG PO PRN (07:30)
[2019-09-17] MEDS ORDERED: INSULIN LISPRO 20 UNIT SQ SCH (08:00)
[2019-09-17] MEDS: INSULIN LISPRO 300 UNITS/3 ML VIAL. SQ SCH ×6 (08:00→17:21)
[2019-09-17] MEDS ORDERED: INSULIN GLARGINE SYRINGE. SQ SCH ×2 (08:30→14:31)
[2019-09-17] MEDS ORDERED: OMEGA-3 FATTY ACIDS/FISH OIL 1,000 MG CAPSULE. PO SCH (09:00)
[2019-09-17] MEDS ORDERED: NON FORMULARY ITEM (Icosapent Ethyl (Vascepa) 2 CAP) PO SCH (09:00)
[2019-09-17] MEDS ORDERED: METAXALONE 800 MG PO SCH (09:00)
[2019-09-17] MEDS: ASPIRIN CHEWABLE 81 MG TABLET. PO SCH (09:19)
[2019-09-17] MEDS: LEVOTHYROXINE 125 MCG TABLET PO SCH (09:19)
[2019-09-17] MEDS: hydrALAZINE 25 MG TABLET PO SCH ×3 (09:19→20:59)
[2019-09-17] MEDS: metFORMIN 500 MG TABLET PO SCH ×2 (09:19→17:27)
[2019-09-17] MEDS: LOSARTAN 50 MG TABLET. PO SCH (09:20)
[2019-09-17] MEDS: APIXABAN 5 MG TABLET. PO SCH ×2 (09:20→21:00)
[2019-09-17] MEDS: cycloSPORINE 0.05% OPTH 1 DROP DROPERETTE OU SCH ×2 (09:20→20:56)
[2019-09-17] MEDS: CARVEDILOL 6.25 MG TABLET PO SCH ×2 (09:20→17:27)
[2019-09-17] MEDS: DOCUSATE SODIUM 100 MG CAPSULE PO SCH ×2 (09:20→21:00)
[2019-09-17] MEDS: POTASSIUM CHLORIDE 20 MEQ TABLET.ER. PO SCH (09:22)
[2019-09-17] MEDS ORDERED: diphenhydrAMINE HCL 25 MG CAPSULE PO PRN (09:45)
[2019-09-17] MEDS ORDERED: POLYVINYL ALCOHOL 1.4% OPHTH SOLUTION 15ML BOTTLE. OU SCH (10:00)
[2019-09-17] MEDS ORDERED: ACETAMINOPHEN 500 MG TABLET PO PRN (10:00)
[2019-09-17] MEDS: FUROSEMIDE 20 MG/2 ML VIAL IVP SCH ×2 (10:55→14:23)
[2019-09-17] MEDS ORDERED: POLYVINYL ALCOHOL 1.4% OPHTH SOLUTION 15ML BOTTLE. OU PRN (11:00)
[2019-09-17 11:24] VITALS: BP 132/63
[2019-09-17] MEDS ORDERED: IPRATRPIUM/ALBUTEROL 0.5/2.5MG 3 ML NEBU. ONE (11:26)
[2019-09-17] MEDS: IPRATRPIUM/ALBUTEROL 0.5/2.5MG 3 ML NEBU. NEB SCH ×3 (11:36→20:56)
--- NOTE | 2019-09-17 12:20 | RAD ---
CT scan of the chest without contrast 09/17/2019 CLINICAL HISTORY: Shortness of breath. TECHNIQUE: Unenhanced, contiguous, 5 mm axial sections were obtained through the chest and upper abdomen. One or more of the following individualized dose reduction techniques were utilized for this study: 1. Automated exposure control. 2. Adjustment of the mA and/or kV according to patient size. 3. Use of iterative reconstruction technique. FINDINGS: Comparison is made to portable chest radiograph dated 09/16/2019. Atherosclerotic calcification of the thoracic aorta and its branches is noted. The thoracic aorta is tortuous but tapers normally. There is mild cardiomegaly. Extensive coronary artery calcifications are seen. Prominent mediastinal lymph nodes are seen which measure 5 mm to 2.4 cm in size. Postsurgical changes are seen involving the posterior right pleural space. Small calcified granulomas are seen involving both lungs. No area of consolidation is noted. No pneumothorax or pleural effusion is seen. Areas of scarring are seen involving the right lower lobe. Images through the upper abdomen demonstrate decreased attenuation of the liver parenchyma consistent with fatty infiltration. Atherosclerotic calcification of the abdominal aorta is seen. Very mild S-shaped curvature of the thoracolumbar spine is noted. Degenerative changes are seen involving the thoracic spine. IMPRESSION: No acute abnormality is seen. Electronically signed by: Randal Ba MD (09/17/2019 12:17 PM) [id number]
--- NOTE | 2019-09-17 14:39 | EKG ---
[address] [address] Test Date: 2019-09-16 Test Time: 21:48:18 Pat Name: [facility] Department: Room: Gender: M Bending Roll Hand: : 1955 Requested By: KARISSA CARRERO Order Number: [id number] Reading MD: Measurements Intervals [place] Rate: 71 P: -5 SC: 204 QRS: -88 QRSD: 152 T: 86 QT: 442 QTc: 480 Interpretive Statements SINUS RHYTHM ABNORMAL LEFT AXIS DEVIATION S1,S2,S3 PATTERN LEFT ANTERIOR FASCICULAR BLOCK RIGHT BUNDLE BRANCH BLOCK BIFASCICULAR BLOCK ABNORMAL ECG RI6.02 No previous ECG available for comparison
[2019-09-17 15:34] VITALS: BP 147/56
[2019-09-17 19:22] VITALS: BP 155/67
--- NOTE | 2019-09-17 20:06 | HP ---
ADMIT DATE: HISTORY OF PRESENT ILLNESS: A 64-year-old male with long history of COPD. The patient for the last week or so has been having trouble with breathing. He tried outpatient with steroids and Augmentin. The patient's symptoms improved slightly and then about 2 days prior the patient became increasingly worse with marked increased dyspnea. The patient denied chest pain. Denies any other symptoms other than the dyspnea. Denies any abdominal pain, nausea, vomiting, melena, hematochezia, hematemesis and all that. The patient otherwise was admitted for acute exacerbation of COPD and further evaluation as indicated. PAST MEDICAL HISTORY: Extensive. He has had numerous admissions for his respiratory problems. He has a broken nose, cataract surgery, tonsillectomy, hearing loss, CHF, CAD, peripheral vascular disease. He has had open heart surgery with 4-vessel bypass, coronary stents x4; hypercholesterolemia; DVT; 4 pleural effusions of unknown etiology; COPD; bronchitis; pneumonia; sleep apnea; hiatal hernia; abdominal surgery; appendectomy and hernia repair; obesity; GERD and hypogonadism. The patient has leiomyoma, arthritis, leg surgery, endocrine disorders. He is diabetic, poorly controlled; hypothyroidism; morbid obesity; has a history of smoking exposure for the last 42 years but encouraged numerous times to stop smoking. IMMUNIZATIONS: Tetanus and flu vaccines and pneumococcal vaccines up-to-date. FAMILY HISTORY: Father had pancreatitis as did the brother, daughter and mother also has history of asthma and there is cancer in the family. ALLERGIES: ERYTHROMYCIN, INFLUENZA VACCINE SPECIFIC, MORPHINE, PIOGLITAZONE, SHELL FISH, DERIVED SPINACH, TORSEMIDE, although he can take furosemide, VANCOMYCIN and ____. MEDICATIONS: The patient's medication list is also extensive including Benadryl, DuoNeb treatments, Robaxin, Eliquis, fenofibrate, ____ hydralazine, carvedilol, irbesartan, Celose eyedrops, nasal spray, sodium chloride, magnesium oxide, Zantac, metformin 1000 b.i.d., Humalog, NPH and Synthroid 125 mcg. SOCIAL HISTORY: The patient is a full code. Denies any smoking history as noted above. Denies alcohol or drug use. REVIEW OF SYSTEMS: As stated in the HPI. PHYSICAL EXAMINATION: GENERAL: This is a very pleasant white male, morbidly obese. VITAL SIGNS: The patient is on a BiPAP, CPAP when he came in through the Emergency Room because he was so dyspneic. The patient's blood pressure 124/66, respiratory rate 22, pulse 95 on 2 liters on BiPAP. The patient was having respiratory difficulty. Respiratory rate went up as high as 30. HEENT: The patient's head was atraumatic, normocephalic. Mouth and throat show poor dentition. NECK: Supple, without JVD, carotid bruits. No thyromegaly. LUNGS: Diminished. Poor movement of air throughout. CARDIOVASCULAR: Regular sinus rhythm. ABDOMEN: Protuberant, soft, diffuse tenderness. EXTREMITIES: +2 to 3 pitting edema. Pulses noted distally, dorsal pedis, posterior tibialis. NEUROLOGIC: Alert and oriented. Speech is fluent, spontaneous, appropriate when off the BiPAP. IMPRESSION: Acute on top of chronic respiratory failure, acute asthmatic condition, leukocytosis, white count of 19,000, but fairly normal differential. Type 2 diabetes, poorly controlled; chronic anticoagulant therapy; history of deep venous thromboses; morbid obesity; hyperlipidemia; hypertriglyceridemia and history of coronary artery disease. PLAN: The patient will be admitted. Continue to monitor carefully. No obvious signs of an infection. We will try to diurese him as he does have increased fluid overload and see if this does not help his dyspnea. CT scan was unremarkable. ROSEANN OLIVIER MD DR: CAIO/erik JOB#: [id number] / [id number]
[2019-09-17] MEDS: DOXYCYCLINE HYCLATE 100 MG TABLET PO SCH (20:57)
[2019-09-17] MEDS: FENOFIBRATE NANOCRYSTALLIZED 145 MG TABLET PO SCH (20:58)
[2019-09-17] MEDS: FAMOTIDINE 20 MG TABLET PO SCH (20:59)
[2019-09-17] MEDS: ATORVASTATIN CALCIUM 20 MG TABLET PO SCH (20:59)
[2019-09-17 22:26] VITALS: BP 146/63
[2019-09-17 22:41] LABS: BILIRUBIN,URINE NEG (NEG); CLARITY,URINE CLOUDY; COLOR,URINE YELLOW; GLUCOSE,URINE NEG (NEG); NITRITE,URINE NEG (NEG); UROBILINOGEN,URINE 0.2 mg/dL (0.2 mg/dL)
[2019-09-17 22:42] LABS: AMORPHOUS SEDIMENT,UR PRESENT /HPF; BACTERIA,URINE 0 /HPF (0-FEW); RBC,URINE RARE /HPF (0-2); SQUAMOUS EPITHELIAL CELL,UR OCC /LPF; WBC,URINE RARE /HPF (0-4)
[2019-09-17] MEDS: INSULIN GLARGINE SYRINGE. SQ SCH (23:00)
[2019-09-17] MEDS: HYDROcodone/APAP 7.5/325MG 1 TAB TABLET PO PRN (23:01)
[2019-09-18] MEDS: IPRATRPIUM/ALBUTEROL 0.5/2.5MG 3 ML NEBU. NEB SCH ×4 (05:10→20:15)
[2019-09-18 05:55] LABS: BASO # 0.1 x10^3/uL (0.0-0.2); BASO % 1 % (0-3); EOS # 0.1 x10^3/uL (0.0-0.7); EOS % 1 % (0-3); HEMATOCRIT 34.3 % (39.0-53.0); HEMOGLOBIN 10.9 g/dL (13.0-17.5); LYMPH # 2.1 x10^3/uL (1.0-4.8); LYMPH % 20 % (24-48); MEAN CORPUSCULAR HEMOGLOBIN 27 pg (25-35); MEAN CORPUSCULAR HGB CONC 32 g/dL (31-37); MEAN CORPUSCULAR VOLUME 84 fL (79-100); MONO # 0.9 x10^3/uL (0.0-1.1); MONO % 8 % (0-9); NEUT # 7.5 x10^3uL (1.8-7.7); NEUT % 71 % (31-73); PLATELET COUNT 175 x10^3/uL (140-400); RED BLOOD COUNT 4.08 x10^6/uL (4.30-5.70); RED CELL DISTRIBUTION WIDTH 16.6 % (11.5-14.5); WHITE BLOOD COUNT 10.6 x10^3/uL (4.0-11.0)
[2019-09-18 06:01] LABS: CALCIUM 8.4 mg/dL (8.5-10.1); CREATININE 1.2 mg/dL (0.7-1.3); GFR 60.6; POTASSIUM 4.2 mmol/L (3.5-5.1)
[2019-09-18 06:31] VITALS: BP 144/66
[2019-09-18] MEDS: LEVOTHYROXINE 125 MCG TABLET PO SCH (07:54)
[2019-09-18] MEDS: metFORMIN 500 MG TABLET PO SCH ×2 (07:55→17:25)
[2019-09-18] MEDS: CARVEDILOL 6.25 MG TABLET PO SCH ×2 (07:55→17:25)
[2019-09-18] MEDS: INSULIN LISPRO 300 UNITS/3 ML VIAL. SQ SCH ×6 (07:58→17:00)
[2019-09-18] MEDS: INSULIN GLARGINE SYRINGE. SQ SCH ×2 (07:59→21:43)
[2019-09-18] MEDS: FUROSEMIDE 20 MG/2 ML VIAL IVP SCH ×2 (08:51→13:51)
[2019-09-18] MEDS: cycloSPORINE 0.05% OPTH 1 DROP DROPERETTE OU SCH ×2 (08:51→21:28)
[2019-09-18] MEDS: ASPIRIN CHEWABLE 81 MG TABLET. PO SCH (08:52)
[2019-09-18] MEDS: POTASSIUM CHLORIDE 20 MEQ TABLET.ER. PO SCH (08:52)
[2019-09-18] MEDS: APIXABAN 5 MG TABLET. PO SCH ×2 (08:52→21:29)
[2019-09-18] MEDS: DOXYCYCLINE HYCLATE 100 MG TABLET PO SCH ×2 (08:53→21:29)
[2019-09-18] MEDS: LOSARTAN 50 MG TABLET. PO SCH (08:53)
[2019-09-18] MEDS: hydrALAZINE 25 MG TABLET PO SCH ×3 (08:54→21:29)
[2019-09-18] MEDS: DOCUSATE SODIUM 100 MG CAPSULE PO SCH ×2 (08:54→21:00)
[2019-09-18 12:07] VITALS: BP 131/56
[2019-09-18] MEDS: HYDROcodone/APAP 7.5/325MG 1 TAB TABLET PO PRN ×2 (13:52→21:33)
[2019-09-18 14:43] VITALS: BP 151/65
[2019-09-18] MEDS ORDERED: INSULIN LISPRO 300 UNITS/3 ML VIAL. SQ SCH (17:30)
[2019-09-18 19:04] VITALS: BP 151/52
[2019-09-18] MEDS ORDERED: POTASSIUM CHLORIDE 20 MEQ TABLET.ER. PO SCH (21:00)
[2019-09-18] MEDS: FAMOTIDINE 20 MG TABLET PO SCH (21:29)
[2019-09-18] MEDS: ATORVASTATIN CALCIUM 20 MG TABLET PO SCH (21:29)
[2019-09-18] MEDS: FENOFIBRATE NANOCRYSTALLIZED 145 MG TABLET PO SCH (21:29)
[2019-09-18] MEDS: LACTOBACILLUS RHAMNOSUS GG 1 CAPSULE. PO SCH (21:37)
[2019-09-18 22:04] VITALS: BP 148/59
--- NOTE | 2019-09-18 23:54 | PN ---
DATE: SUBJECTIVE: A 64-year-old male came in with acute respiratory distress syndrome. The patient is breathing a little better. He has been diuresed and says he is feeling somewhat better. The patient otherwise continues to complain of marked shortness of breath and dyspnea. OBJECTIVE: VITAL SIGNS: Blood pressure 148/59, respiratory rate 20, pulse 74, afebrile. GENERAL: The patient is alert and oriented. LUNGS: Diminished, but improved in terms of his breathing quality. CARDIOVASCULAR: Regular sinus rhythm. ABDOMEN: Soft, markedly protuberant. EXTREMITIES: No clubbing, cyanosis, +1 edema. NEUROLOGIC: Intact. LABORATORY DATA: The patient's labs are remarkable for the fact that the white count came down from 19,000 down to 10, hemoglobin 11 to 10 and the like. Marked improvement there. Blood sugars are being monitored as well as electrolytes were basically within range. IMPRESSION: Therefore, acute respiratory distress, acute on top of chronic respiratory failure, acute asthmatic condition, leukocytosis resolved, morbid obesity, type 2 diabetes, hyperlipidemia, history of coronary artery disease. PLAN: The patient continued to be monitored and will be adjusted on his medications and make further evaluation per those results. ROSEANN OLIVIER MD DR: CAIO/erik JOB#: [id number] / [id number]
[2019-09-19] MEDS: IPRATRPIUM/ALBUTEROL 0.5/2.5MG 3 ML NEBU. NEB SCH ×4 (05:30→20:18)
[2019-09-19 05:33] VITALS: BP 168/64
[2019-09-19] MEDS: metFORMIN 500 MG TABLET PO SCH ×2 (07:57→17:31)
[2019-09-19] MEDS: FUROSEMIDE 20 MG/2 ML VIAL IVP SCH ×2 (07:57→17:33)
[2019-09-19] MEDS: HYDROcodone/APAP 7.5/325MG 1 TAB TABLET PO PRN ×2 (07:58→20:37)
[2019-09-19] MEDS: POTASSIUM CHLORIDE 20 MEQ TABLET.ER. PO SCH (07:58)
[2019-09-19] MEDS: INSULIN LISPRO 300 UNITS/3 ML VIAL. SQ SCH ×6 (08:00→17:37)
[2019-09-19] MEDS: INSULIN GLARGINE SYRINGE. SQ SCH (08:00)
[2019-09-19] MEDS: LACTOBACILLUS RHAMNOSUS GG 1 CAPSULE. PO SCH ×2 (08:01→20:37)
[2019-09-19] MEDS: DOCUSATE SODIUM 100 MG CAPSULE PO SCH ×3 (08:01→20:42)
[2019-09-19] MEDS: DOXYCYCLINE HYCLATE 100 MG TABLET PO SCH ×2 (08:01→20:36)
[2019-09-19] MEDS: APIXABAN 5 MG TABLET. PO SCH ×2 (08:01→20:37)
[2019-09-19] MEDS: LOSARTAN 50 MG TABLET. PO SCH (08:02)
[2019-09-19] MEDS: CARVEDILOL 6.25 MG TABLET PO SCH ×2 (08:02→17:32)
[2019-09-19] MEDS: cycloSPORINE 0.05% OPTH 1 DROP DROPERETTE OU SCH ×2 (08:02→20:36)
[2019-09-19] MEDS: hydrALAZINE 25 MG TABLET PO SCH ×3 (08:02→20:37)
[2019-09-19] MEDS: LEVOTHYROXINE 125 MCG TABLET PO SCH (08:05)
[2019-09-19] MEDS: ASPIRIN CHEWABLE 81 MG TABLET. PO SCH (09:00)
[2019-09-19 14:24] VITALS: BP 142/55
[2019-09-19] MEDS ORDERED: INSULIN LISPRO 300 UNITS/3 ML VIAL. SQ SCH (17:30)
[2019-09-19 20:03] VITALS: BP 158/61
[2019-09-19] MEDS: FAMOTIDINE 20 MG TABLET PO SCH (20:36)
[2019-09-19] MEDS: ATORVASTATIN CALCIUM 20 MG TABLET PO SCH (20:36)
[2019-09-19] MEDS: FENOFIBRATE NANOCRYSTALLIZED 145 MG TABLET PO SCH (20:37)
[2019-09-19] MEDS ORDERED: INSULIN GLARGINE SYRINGE. SQ SCH (21:00)
[2019-09-19 23:44] VITALS: BP 150/62
--- NOTE | 2019-09-20 02:31 | PN ---
DATE: SUBJECTIVE: The patient is in with appears to be congestive heart failure. The patient is having problems with his blood sugars, they are going too low, we have to adjust that. The patient is still on diuresis. PHYSICAL EXAMINATION: VITAL SIGNS: Blood pressure is 168/84, respiratory rate 20, pulse 60, afebrile, still 2 liters at 94%. GENERAL: The patient is alert, but still feeling very weak, having difficulty breathing. LUNGS: Diminished throughout, poor movement of air but improved, but still having problems there. CARDIOVASCULAR: Regular sinus rhythms. ABDOMEN: Soft, nontender. EXTREMITIES: With trace edema. LABORATORY DATA: The patient's blood sugars running in the low 100s and he does not feel good with that. Otherwise, we will continue to adjust his medications. Continue with diuresis. Monitor his blood pressure. IMPRESSION: Acute on top of chronic diastolic heart failure, essential hypertension, type 2 diabetes, poorly controlled; morbid obesity, hyperlipidemia and ASCD. ROSEANN OLIVIER MD DR: CAIO/erik JOB#: [id number] / [id number]
[2019-09-20] MEDS: IPRATRPIUM/ALBUTEROL 0.5/2.5MG 3 ML NEBU. NEB SCH ×2 (05:24→10:09)
[2019-09-20 06:24] VITALS: BP 160/66
[2019-09-20] MEDS: cycloSPORINE 0.05% OPTH 1 DROP DROPERETTE OU SCH (09:49)
[2019-09-20] MEDS: LEVOTHYROXINE 125 MCG TABLET PO SCH (09:49)
[2019-09-20] MEDS: APIXABAN 5 MG TABLET. PO SCH (09:50)
[2019-09-20] MEDS: POTASSIUM CHLORIDE 20 MEQ TABLET.ER. PO SCH (09:50)
[2019-09-20] MEDS: hydrALAZINE 25 MG TABLET PO SCH ×2 (09:50→14:00)
[2019-09-20] MEDS: LACTOBACILLUS RHAMNOSUS GG 1 CAPSULE. PO SCH (09:52)
[2019-09-20] MEDS: DOXYCYCLINE HYCLATE 100 MG TABLET PO SCH (09:52)
[2019-09-20] MEDS: LOSARTAN 50 MG TABLET. PO SCH (09:52)
[2019-09-20] MEDS: ASPIRIN CHEWABLE 81 MG TABLET. PO SCH (09:53)
[2019-09-20] MEDS: metFORMIN 500 MG TABLET PO SCH (09:53)
[2019-09-20] MEDS: DOCUSATE SODIUM 100 MG CAPSULE PO SCH (09:53)
[2019-09-20] MEDS: FUROSEMIDE 20 MG/2 ML VIAL IVP SCH ×2 (09:54→14:00)
[2019-09-20] MEDS: INSULIN LISPRO 300 UNITS/3 ML VIAL. SQ SCH ×4 (10:07→12:23)
[2019-09-20] MEDS ORDERED: FAMO20TA5 PO (10:19)
[2019-09-20] MEDS ORDERED: CARV12.547 PO (10:19)
[2019-09-20] MEDS ORDERED: FURO40TA4 PO (10:19)
[2019-09-20] MEDS: INSULIN GLARGINE SYRINGE. SQ SCH (10:33)
[2019-09-20 11:00] VITALS: BP 145/68
[2019-09-20 14:00] VITALS: BP 145/68
[2019-09-20] MEDS ORDERED: CARVEDILOL 12.5 MG TABLET PO SCH (17:00)
== END 2019-09-20 14:30 | disposition home or self-care (01) | DRG 291 ==
LOC: ER 21:33 → 1 SOUTH 23:29
PROVIDERS: ADMIT Family Medicine; ATTEND Family Medicine
PROC: 5A09357 Assistance with Respiratory Ventilation, Less than 24 Consecutive Hours, Continuous Positive Airway Pressure (ICD-10-PCS; 2019-09-17)
PROC: 5A09357 Assistance with Respiratory Ventilation, Less than 24 Consecutive Hours, Continuous Positive Airway Pressure (ICD-10-PCS; 2019-09-18)
PROC: 5A09357 Assistance with Respiratory Ventilation, Less than 24 Consecutive Hours, Continuous Positive Airway Pressure (ICD-10-PCS; principal; 2019-09-19)
PROC: 5A09357 Assistance with Respiratory Ventilation, Less than 24 Consecutive Hours, Continuous Positive Airway Pressure (ICD-10-PCS; 2019-09-20)
DX: I11.0 Hypertensive heart disease with heart failure (principal); J96.20 Acute and chronic respiratory failure, unspecified whether with hypoxia or hypercapnia; J44.1 Chronic obstructive pulmonary disease with (acute) exacerbation; Z68.41 Body mass index [BMI] 40.0-44.9, adult; I50.33 Acute on chronic diastolic (congestive) heart failure; D72.829 Elevated white blood cell count, unspecified; E03.9 Hypothyroidism, unspecified; E11.51 Type 2 diabetes mellitus with diabetic peripheral angiopathy without gangrene; E11.65 Type 2 diabetes mellitus with hyperglycemia; E66.01 Morbid (severe) obesity due to excess calories; E78.00 Pure hypercholesterolemia, unspecified; E78.1 Pure hyperglyceridemia; E78.5 Hyperlipidemia, unspecified; H91.90 Unspecified hearing loss, unspecified ear; I25.10 Atherosclerotic heart disease of native coronary artery without angina pectoris; Z82.5 Family history of asthma and other chronic lower respiratory diseases; Z86.718 Personal history of other venous thrombosis and embolism; Z87.891 Personal history of nicotine dependence; Z90.49 Acquired absence of other specified parts of digestive tract; Z95.5 Presence of coronary angioplasty implant and graft; E66.9 Obesity, unspecified; K21.9 Gastro-esophageal reflux disease without esophagitis; M19.90 Unspecified osteoarthritis, unspecified site; Z91.013 Allergy to seafood; Z88.8 Allergy status to other drugs, medicaments and biological substances; Z91.018 Allergy to other foods; Z91.048 Other nonmedicinal substance allergy status
CPT/HCPCS: 36415; 71045; 71250; 80048; 80053; 81001; 82553; 82947; 83605; 83880; 84145; 84484; 85007; 85025; 85610; 85730; 87040; 87077; 87205; 93005; 94640; 96374; 96375; J0360; J0696; J1100; J1815; 99285-25; J7613

== ENCOUNTER 2019-09-20 17:31 | Emergency (ER) | payer MEDICARE, BC ==
[~2019-09-20] VITALS: Ht 190.5 cm; Wt 147.4 kg
[2019-09-20 17:31] VITALS: BP 199/91
[~2019-09-20 17:31] MED LIST changes: +CARB15DR3 EACHEYE; +CARV12.547 PO; +FAMO20TA5 PO; +GUAI400T78 PO; +HYPR10GE OP; +ICOS1CAP PO; +MAGN250T10 PO; +OMEG1CAP50 PO
--- NOTE | 2019-09-20 17:57 | EKG ---
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1955 Requested By: KARISSA CARRERO Order Number: [id number] Reading MD: Measurements Intervals [place] Rate: 69 P: -57 IA: 166 QRS: -79 QRSD: 152 T: 76 QT: 448 QTc: 482 Interpretive Statements SUPRAVENTRICULAR RHYTHM ABNORMAL LEFT AXIS DEVIATION S1,S2,S3 PATTERN LEFT ANTERIOR FASCICULAR BLOCK NON SPECIFIC INTRAVENTRICULAR BLOCK QRS(T) CONTOUR ABNORMALITY CONSIDER ANTEROSEPTAL MYOCARDIAL DAMAGE ABNORMAL ECG RI6.02 Compared to ECG 09/16/2019 21:48:18 Supraventricular rhythm now present Sinus rhythm no longer present Right bundle-branch block no longer present Bifascicular block no longer present
[2019-09-20 17:59] LABS: BASO # 0.1 x10^3/uL (0.0-0.2); BASO % 1 % (0-3); EOS # 0.4 x10^3/uL (0.0-0.7); EOS % 3 % (0-3); HEMATOCRIT 34.6 % (39.0-53.0); HEMOGLOBIN 11.1 g/dL (13.0-17.5); LYMPH # 1.4 x10^3/uL (1.0-4.8); LYMPH % 13 % (24-48); MEAN CORPUSCULAR HEMOGLOBIN 27 pg (25-35); MEAN CORPUSCULAR HGB CONC 32 g/dL (31-37); MEAN CORPUSCULAR VOLUME 83 fL (79-100); MONO % 9 % (0-9); NEUT # 7.8 x10^3uL (1.8-7.7); NEUT % 74 % (31-73); PLATELET COUNT 185 x10^3/uL (140-400); RED BLOOD COUNT 4.16 x10^6/uL (4.30-5.70); RED CELL DISTRIBUTION WIDTH 16.5 % (11.5-14.5); WHITE BLOOD COUNT 10.6 x10^3/uL (4.0-11.0)
[2019-09-20 18:11] LABS: CREATININE 1.2 mg/dL (0.7-1.3); GFR 60.6; POTASSIUM 4.2 mmol/L (3.5-5.1)
--- NOTE | 2019-09-20 18:12 | PHYS DOC ---
Past History Past Medical History: Asthma, Bronchitis, CAD, CHF, COPD, Diabetes, DVT, GERD, High Cholesterol, Hypertension, Hypothyroid, Pneumonia, URI, Other Additional Past Medical Histor: wears 2L NC at all times at home (KARISSA CARRERO DO) Past Surgical History: Appendectomy, Tonsillectomy, Other Additional Past Surgical Histo: cardiac stents x3, hernia repair x4 (KARISSA CARRERO DO) Smoking: Cigarettes, Quit Greater Than 1 Year Alcohol Use: Sober Drug Use: None (KARISSA CARRERO DO) General Adult EDM: Chief Complaint: SHORTNESS OF BREATH HPI: HPI: 64-year-old male with past medical history of CHF and COPD who was recently admitted by Dr. Garcia to the hospital from 09/16/2019 until this afternoon 09/20/2019 presents with report of increased work of breathing. Patient reports upon returning home he felt very short of breath and wheezy. Patient reports he required increase in his trilogy machine from his 2 L nasal cannula to 3 L. Patient had also dropped to 86% O2 sat. Patient reports he tried using a regular oxygen mask and dropped into the 70s. Spouse became concerned and called 911. EMS reports patient with external wheezing on exam. DuoNeb was provided in route with interval improvement of symptoms. Denies fever or ch ills. Patient reports he felt he was not ready to be discharged home this morning. (KARISSA CARRERO DO) Review of Systems: Review of Systems: Constitutional: Denies fever or chills Eyes: Denies redness or eye pain HENT: Denies nasal congestion or sore throat Respiratory: Reports wheezing and shortness of air Cardiovascular: Denies chest pain or palpitations GI: Denies abdominal pain, nausea, or vomiting : Denies dysuria or hematuria Musculoskeletal: Denies back pain or joint pain Integument: Denies rash or skin lesions Neurologic: Denies headache, focal weakness or sensory changes Complete systems were reviewed and found to be within normal limits, except as documented in this note. (KARISSA CARRERO DO) Allergies: Allergies: Allergies Coded Allergies Type Severity Reaction Last Updated Verified pioglitazone Allergy Severe swelling 03/27/15 Yes erythromycin base Allergy Intermediate rash and hives 03/27/15 Yes influenza virus vaccine, specific Allergy Intermediate SOB 03/27/15 No morphine Allergy Intermediate 12/16/15 Yes shellfish derived Allergy Intermediate SHRIMP-RASH/HIVES 03/27/15 Yes spinach Allergy Intermediate Hives 12/14/15 Yes torsemide Allergy Intermediate 12/16/15 Yes vancomycin Allergy Intermediate red iveth syndrome with IV/sob 03/27/15 Yes wool Allergy Intermediate Hives 12/14/15 Yes (KARISSA CARRERO DO) Physical Exam: PE: Constitutional: Well developed, obese, no acute distress, cantankerous HENT: Normocephalic, atraumatic Eyes: Conjunctiva normal, no discharge Neck: Normal range of motion, no tenderness, supple Lungs & Thorax: No respiratory distress, equal chest rise and fall Abdomen: Soft, no tenderness, obese Skin: Warm, dry, no erythema, no rash Extremities: No tenderness, ROM intact, 2+ bilateral lower extremity edema Neurologic: Alert and oriented X 3, no focal deficits noted Psychologic: Affect normal, judgment normal (KARISSA CARRERO DO) Current Patient Data: Vital Signs: Vital Signs Date Time Temp Pulse Resp B/P (MAP) Pulse Ox O2 Delivery O2 Flow Rate FiO2 09/20/19 17:31 98.4 75 20 199/91 (127) 88 Nasal Cannula 2.0 (KARISSA CARRERO DO) EKG: EKG: @1753 NSR at 69 bpm, NO ST elevation, QRS 152ms, QT/QTc 448/482ms, LAFB (KARISSA CARRERO DO) Radiology/Procedures: Radiology/Procedures: [] (KARISSA CARRERO DO) Impressions: INDICATION: Reason: SOA / Spl. Instructions: / History: COMPARISON: One day prior FINDINGS: Single view of chest obtained. Enlarged cardiomediastinal silhouette is again seen. Overall appearance of the lungs is similar to prior with interstitial prominence again seen and relative haziness of the lower lungs IMPRESSION: * Overall similar appearance when compared to prior with repeat demonstration of enlarged cardiac mediastinal silhouette as well as mild interstitial opacities seen and haziness of the lower lungs. No new region of consolidation. Mild pulmonary vascular congestion with basilar atelectasis could have this appearance. Electronically signed by: Ramon Manrique MD (09/20/2019 6:15 PM) [id number] DICTATED AND SIGNED BY: RAMON MANRIQUE MD DATE: 09/20/19 789 CC: ROSEANN OLIVIER MD; KARISSA CARRERO DO ~ (RENNY HEWITT DO) Course & Med Decision Making: Course & Med Decision Making Pertinent Labs and Imaging studies reviewed. (See chart for details) Patient with past medical history of CHF and COPD who is on chronic supplemental oxygen presents with report of increased work of breathing upon discharge from the hospital a few hours ago. Patient reports his O2 sat had dropped. EMS reports patient with some external wheezing upon their arrival which improved after DuoNeb treatment. EKG obtained and baseline. Labs obtained and pending. Chest x-ray pending. Signout given to Dr. Hewitt for further evaluation and final disposition. Discussed current findings and plan with patient, who acknowledges understanding and agreement. (KARISSA CARRERO DO) Course & Med Decision Making The patient's labs are unremarkable. There are a few mildly outside of normal labs. See labs for more details. Patient's chest x-ray appears similar to previous. He is having no difficulty with his trilogy breathing machine here in the emergency room. His oxygen saturation 96 to 97%. I spoke with Dr. Olivier and he is hopeful that the patient can go home. He is wondering if there is an equipment problem at the patient's house either with the pulse oximeter or intermittently with the breathing machine. The patient is very concerned about the fact that his pulse oximeter said 70 something earlier today. He is very afraid that this could happen again if he goes home. He has his trilogy BiPAP with him. We have hooked it up and placed him on it. He has remained between 93 and 95% without difficulty. The patient is willing to go home. If he has further episodes of low O2 level, he will come back to the emergency room. He is stable for discharge at this time. (RENNY HEWITT DO) Dragon Disclaimer: Dragon Disclaimer: This electronic medical record was generated, in whole or in part, using a voice recognition dictation system. (KARISSA CARRERO DO) Departure Departure: Impression: Primary Impression: Shortness of breath Disposition: 01 HOME/RESIDENCE PRIOR TO ADM Condition: STABLE Referrals: ROSEANN OLIVIER MD (PCP) Patient Instructions: Shortness of Breath, [id number] Justification of Admission: Justification of Admission: Justification of Admission Dx: Comment: (To be determined) (KARISSA CARRERO DO) Justification of Admission Dx: N/A (RENNY HEWITT DO) KARISSA CARRERO DO Sep 20, 2019 18:12 RENNY HEWITT DO Sep 20, 2019 18:42
--- NOTE | 2019-09-20 18:17 | RAD ---
INDICATION: Reason: SOA / Spl. Instructions: / History: COMPARISON: One day prior FINDINGS: Single view of chest obtained. Enlarged cardiomediastinal silhouette is again seen. Overall appearance of the lungs is similar to prior with interstitial prominence again seen and relative haziness of the lower lungs IMPRESSION: * Overall similar appearance when compared to prior with repeat demonstration of enlarged cardiac mediastinal silhouette as well as mild interstitial opacities seen and haziness of the lower lungs. No new region of consolidation. Mild pulmonary vascular congestion with basilar atelectasis could have this appearance. Electronically signed by: Rojas Sol MD (09/20/2019 6:15 PM) [id number]
[2019-09-20 18:26] LABS: ALBUMIN/GLOBULIN RATIO 0.8 (1.0-1.7); MAGNESIUM 1.5 mg/dL (1.8-2.4); TOTAL BILIRUBIN 0.4 mg/dL (0.2-1.0); TOTAL PROTEIN 6.7 g/dL (6.4-8.2)
== END 2019-09-20 20:05 | disposition home or self-care (01) ==
LOC: ER 17:31
DX: R06.02 Shortness of breath (principal); R06.2 Wheezing; R60.0 Localized edema; J44.9 Chronic obstructive pulmonary disease, unspecified; I25.10 Atherosclerotic heart disease of native coronary artery without angina pectoris; I11.0 Hypertensive heart disease with heart failure; I50.9 Heart failure, unspecified; E11.9 Type 2 diabetes mellitus without complications; Z86.718 Personal history of other venous thrombosis and embolism; K21.9 Gastro-esophageal reflux disease without esophagitis; E78.00 Pure hypercholesterolemia, unspecified; E03.9 Hypothyroidism, unspecified; Z87.891 Personal history of nicotine dependence; Z88.1 Allergy status to other antibiotic agents; Z88.7 Allergy status to serum and vaccine; Z88.5 Allergy status to narcotic agent; Z91.013 Allergy to seafood; Z88.8 Allergy status to other drugs, medicaments and biological substances
CPT/HCPCS: 36415; 71045; 80053; 82553; 83605; 83735; 83880; 84484; 85025; 93005; 99285